=== PATIENT | male | born 1985 | race Caucasian/White ===

== ENCOUNTER → 2022-06-22 | Outpatient (CLI) | payer OTHER, SELFPAY ==
[2022-06-22 12:24] LABS: Absolute Lymphocyte Count 1.74 X10^3/uL (0.83-4.51); Basophil# 0.13 X10^3/uL; Basophil% 2.4 % (0-1); Eosinophil# 0.07 X10^3/uL; Eosinophils% 1.3 % (0-5); Hemoglobin 14.7 g/dL (13.0-16.5); Lymphocyte # 1.74 X10^3/ul (0.83-4.51); Lymphocyte % 31.5 % (19-41); Mean Corp Hgb Conc 34.2 g/dL (32-36); Mean Corpuscular Hgb 33.6 pg (27.0-32.0); Mean Corpuscular Volume 98.4 fL (80-94); Mean Platelet Vol. 9.3 fl (6.2-12.0); Monocyte# 0.57 X10^3/uL; Monocyte% 10.3 % (0-10); NRBC Flagged by Analyzer 0 % (0-5); Neutrophil # 2.99 X10^3/uL (2.7-7.7); Neutrophil % 54.1 % (47-70); Platelet Count 332 K/mm3 (150-450); RBC Distribution Width CV 11.9 % (11.6-14.6); RBC Distribution Width SD 43.7 fl (35.1-43.9); Red Blood Count 4.37 M/mm3 (4.6-6.2); White Blood Count 5.5 K/mm3 (4.4-11.0)
[2022-06-22 13:22] LABS: Creatinine, Urine (random) < 13.00 mg/dL (NO RANGE EST.); Microalbumin,Random Urine 6.3 mg/L (NO RANGE EST.)
[2022-06-22 13:26] LABS: AST(SGOT) 62 U/L (15-37); Alanine Aminotransfer ALT/SGPT 68 U/L (16-61); Albumin, Serum 3.8 g/dL (3.2-5.0); Alkaline Phosphatase 81 U/L (45-117); Anion Gap 9 (5-15); BUN 11 mg/dL (7-18); BUN/Creat Ratio 13.6 RATIO (10-20); Chloride 103 mmol/L (98-107); Cholesterol 268 mg/dL (200); Creatinine, Serum 0.81 mg/dL (0.70-1.30); EST Glomerular Filtration Rate 114 mL/min (>60); Est Glom Filt Rate - Afr Amer 138 mL/min (>60); Globulin 3.8 g/dL (2.2-4.2); Glucose 96 mg/dL (74-106); High Density Lipoprotein 83 mg/dL; Potassium 3.8 mmol/L (3.5-5.1); Protein, Total 7.6 g/dL (6.4-8.2); Sodium Level 141 mmol/L (136-145); Thyroid Stim Hormone (TSH) 0.88 uIU/mL (0.358-3.74); Triglycerides 217 mg/dL; Very Low Density Lipoprotein 43 mg/dL (5-40)
== END | disposition home or self-care (01) ==
PROVIDERS: Visit Provider Nurse Practitioner Family
DX: E10.9 Type 1 diabetes mellitus without complications (principal); F41.9 Anxiety disorder, unspecified
CPT/HCPCS: 36415; 80053; 80061; 82043; 82570; 84443; 85025

== ENCOUNTER → 2022-07-15 | Outpatient (CLI) | payer OTHER, SELFPAY ==
--- NOTE | 2022-07-15 08:57 | US_ITS ---
STUDY: ABDOMINAL ULTRASOUND - RIGHT UPPER QUADRANT REASON FOR VISIT: Male, 36 years old Elevated LFTs TECHNIQUE: Ultrasound evaluation of the right upper quadrant was performed with real-time and static null-scale imaging. TECHNICAL QUALITY: Adequate. COMPARISON: None. FINDINGS: Liver: The liver measures 13.9 cm. There is increased echogenicity consistent with fatty infiltration. The bile ducts are within normal limits. There is hepatic color flow. The direction of portal flow is hepatopetal. There is no demonstrated mass lesion. Gallbladder: Normal distended gallbladder. The gallbladder wall measures 2.2 mm. There is a negative sonographic Gardiner''s sign. There is no pericholecystic fluid. There are no gallstones. Common Bile Duct (C.B.D.): The common bile duct measures 2.7 mm. Pancreas: Normal size of the head, body of the pancreas. The tail portion is obscured due to overlying bowel gas. There is normal echogenicity of the pancreas. There is no demonstrated pancreatic mass or cyst. Right Kidney: Normal size of the right kidney. The right kidney measures 11.6 cm x 5.8 cm x 7 cm. Normal renal cortex. The right cortex measures 1.9 cm. There is no demonstrated renal mass or cyst. There is no right hydronephrosis. US/Liver IMPRESSION: Fatty infiltration of the liver. Electronically Signed: Juma Beatty MD at 11:11 EDT ,
== END | disposition home or self-care (01) ==
PROVIDERS: PCP Nurse Practitioner Family; Referring Provider Nurse Practitioner Family; Visit Provider Nurse Practitioner Family
DX: R79.89 Other specified abnormal findings of blood chemistry (principal)
CPT/HCPCS: 76705

== ENCOUNTER 2022-09-01 12:49 | Outpatient (RCR) | payer OTHER, SELFPAY ==
--- NOTE | 2022-09-01 14:47 | HP.PTEVAL_ITS ---
Patient's Visit Information JOLIE BERNAL is a 37 year old M referred to Physical Therapy by Dr. Carlyn Yoon DC with a diagnosis of LBP. Date of Evaluation: 09/01/22 Physical Therapist: Nabor Kern PT, ATC - Visit Plan Frequency: 2-3x /Week Duration: 4 Weeks Plan: Postural edu, core stab ex's, SKTC/DKTC, bike, and HEP - Subjective Pt reports his LBP has been chronic in nature. 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 Pt notes this may have lead up to his condition. Pt notes he has had xrays which revealed significant disc degeneration throughout the L/S. Pt reports he will get tingling into his L glute region. 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 Pt reports prolonged sitting and standing increase his pain. Pt also notes prolonged ambulation increases his pain. Pt reports his pain is always bad in the morning. Pt notes that he has sleep difficulty at this time secondary to pain. Pt is currently still seeing his chiropractor which consists of some manipulation and stretching with electric stim. 3/10 pain at rest, 8/10 pain at worst - Pain LBP Pain Intensity (Out of 10): 3 Pain Intensity Range: 8 - Objective Neuro: B LE sensation is WNL to light touch. B patellar reflex= 1/3. MMT: B LE's are grossly 5/5 throughout. ROM: Pt is severely limited with L/S extension. All other motions are WNL. Repeated movements: SKTC/DKTC 15 sec x 3 ea decreased pain - Balance/Special Test Scores Oswestry Low Back Score: 15 - Goals Goal 1:: Decrease LBP x 50% to aid with sleep Goal Time Frame: 4-6 Weeks Goal 2:: Increase core stability x 1 grade to aid with increasing tolerance for prolonged ambulation Goal Time Frame: 4-6 Weeks Goal 3:: I with HEP Goal Time Frame: 4-6 Weeks - Rehabilitation Potential Physical Therapy Diagnosis: Pt has LBP, limited L/S ROM, and difficulty with prolonged ambulation secondary to ddd of L/S Rehabilitation Potential: Good - Anticipated Interventions Patient/Client Instruction: Educate patient on: Condition, Plan of Care For the Purpose of:: To improve self management Therapeutic Exercise to Include: Strength training, Endurance training, Body mechanics, Postural training, Passive ROM, Active ROM, Dynamic Lumbar Stabilization For the Purpose of:: To decrease pain, To increase ROM, To improve muscle performance and motor function Cryotherapy (ice pack, ice massage): Yes Thermo therapy (hot pack): Yes For the Purpose of:: To decrease pain Thank you for the opportunity to evaluate your patient. For Medicare and Medicare HMO plans, please review the plan of care and approve it. It will need to be FAXED BACK to us at [phone] for Medicare purposes. For Medicare only, by signing this I certify the plan of care. Please let me know if there are questions or concerns regarding this plan of care. Physician Signature: Date:
--- NOTE | 2022-12-23 17:52 | HP.PT.NRP ---
JOLIE BERNAL was seen in my office for initial evaluation on 09/01/22. The following Plan of Care was established for this patient: Initial Frequency: 2-3x /Week Initial Duration: 4 Weeks Patient/Client Instruction: Educate patient on: Condition, Plan of Care For the Purpose of:: To improve self management Therapeutic Exercise to Include: Strength training, Endurance training, Body mechanics, Postural training, Passive ROM, Active ROM, Dynamic Lumbar Stabilization For the Purpose of:: To decrease pain, To increase ROM, To improve muscle performance and motor function Cryotherapy (ice pack, ice massage): Yes Thermo therapy (hot pack): Yes For the Purpose of:: To decrease pain This patient was last seen in our office . Pertinent comments regarding their Physical therapy will appear below: Pt was evaluated for LBP the date of 09/01/22. Pt has not returned through todays date and is discontinued at this time. At this point I will be discontinuing this patient from physical therapy. I would be happy to see this patient again in the future if found appropriate by the physician. Thank you! Nabor Kern, PT, ATC Balance/Gait/Functional tests - Balance/Special Test Scores Oswestry Low Back Score: 15
== END 2022-09-01 19:00 | disposition home or self-care (01) ==
LOC: PT 12:49
PROVIDERS: PCP Nurse Practitioner Family; Referring Provider Chiropractor; Visit Provider Chiropractor
DX: M51.36 Other intervertebral disc degeneration, lumbar region (principal); M99.03 Segmental and somatic dysfunction of lumbar region; M99.05 Segmental and somatic dysfunction of pelvic region
CPT/HCPCS: 97110; 97161

== ENCOUNTER → 2022-10-25 | Outpatient (CLI) | payer OTHER, SELFPAY ==
--- NOTE | 2022-10-25 13:55 | CT_ITS ---
STUDY: CT CHEST WITHOUT CONTRAST REASON FOR EXAM: Male, 37 years old. Myasthenia gravis; assess for possible thymoma RADIATION DOSAGE (If Supplied By Facility): CTDIvol = ( 12.19 ) mGy, DLP = ( 422.18 ) mGycm TECHNIQUE: Transaxial imaging was performed without the administration of intravenous contrast material. Multiplanar coronal and sagittal images were reformatted. Individualized dose optimization techniques were used for this CT. COMPARISON: No relevant priors. FINDINGS: CHEST The lungs are normal. There is no demonstrated pleural abnormality. Normal heart and pericardium. Normal mediastinum. Normal hilar regions. Normal unenhanced pulmonary arteries. Normal aorta arch and descending thoracic aorta. Normal osseous structures. Diffuse fatty infiltration of the liver. CT/Chest WITH Contrast IMPRESSION: Diffuse fatty infiltration of the liver. The lungs are clear. Electronically Signed: Juma Beatty MD at 14:33 EST ,
[2022-10-25 14:26] LABS: CREATININE FINGERSTICK < 0.9 mg/dL (0.70-1.30); EGFR FINGERSTICK > 60.0000 mL/min (>60)
== END | disposition home or self-care (01) ==
LOC: CT 13:50
PROVIDERS: PCP Nurse Practitioner Family; Referring Provider Psychiatry & Neurology Neurology; Visit Provider Psychiatry & Neurology Neurology
DX: G70.00 Myasthenia gravis without (acute) exacerbation (principal)
CPT/HCPCS: 71260; Q9967

== ENCOUNTER 2022-11-26 18:25 | Inpatient (IN) | payer OTHER, SELFPAY ==
[2022-11-26 18:26] VITALS: BP 142/107; PULSE 146; RESP 18; TEMP 35.8; O2SAT 97; BMI 24.7
--- NOTE | 2022-11-26 18:56 | EKG12_ITS ---
Test Reason : SUBS ABUSE Blood Pressure : / mmHG Vent. Rate : 098 BPM Atrial Rate : 098 BPM P-R Int : 148 ms QRS Dur : 086 ms QT Int : 334 ms P-R-T Axes : 033 054 050 degrees QTc Int : 426 ms Normal sinus rhythm Normal ECG Confirmed by MARISABEL GOODWIN, NARINDER ([id number]), script editor LAURA FARLEY ([id number]) on 11/29/2022 12:32:45 P M Referred By: ALBERTO Confirmed By:RITA PETIT MD
--- NOTE | 2022-11-26 19:00 | EDS_ITS ---
HPI History of Present Illness Chief Complaint: Substance Abuse Narrative Narrative: 37-year-old male presenting for alcohol detox. Patient states has been drinking for a long time. He states he used to use alcohol for stress and is continued. He reports that he drinks about 1/5 a day of whiskey and some other beers maybe 3 or 4. Patient has had episodes of nausea and vomiting over the last few weeks which he and his believe are him withdrawing when he stops drinking. Patie nt did tell his that he was drinking nonalcoholic alcohol but he was sneaking alcohol on the side. He states that he has a family history of addiction. His older sister is also an alcoholic. Patient feels like he is in withdrawal now. He is very shaky. He has never formally detox. No history of withdrawal seizure. He is a type I diabetic but has an insulin pump he is able to keep his blood sugars normal. He has been having nausea and vomiting since last night. That was when he his last drinks from 6 to 10 PM. Has been vomiting a lot today as well. [facility] Medical History Anxiety Hx of diabetes mellitus Hx of essential hypertension Ocular myasthenia gravis Type 1 diabetes mellitus Home Medications cetirizine 10 mg capsule (Zyrtec) 10 mg PO DAILY 06/22/22 [History Last Taken Unknown] sertraline 50 mg tablet (Zoloft) 50 mg PO DAILY #90 tabs 06/22/22 [Rx Last Taken Unknown] lisinopril 20 mg tablet 20 mg PO DAILY #90 tabs 07/14/22 [Rx Last Taken Unknown] Insulin Pump 09/09/22 [History Last Taken Unknown] blood sugar diagnostic (Contour Next Test Strips) #200 ea 09/09/22 [Rx Last Taken Unknown] insulin lispro 100 unit/mL subcutaneous solution (Humalog U-100 Insulin) 100 unit continuous subcutaneous infusion .continuous #90 mL 09/09/22 [Rx Last Taken Unknown] rosuvastatin 5 mg tablet 5 mg PO DAILY #90 tabs 09/09/22 [Rx Last Taken Unknown] prednisone 5 mg tablet See Rx Instructions .Route .COMPLEX #225 tabs 09/30/22 [Rx Last Taken Unknown] blood sugar diagnostic (Accu-Chek Guide test strips) #100 ea 10/28/22 [Rx Last Taken Unknown] lancets (Accu-Chek Fastclix Lancet Drum) #200 ea 10/28/22 [Rx Last Taken Unknown] insulin glargine 100 unit/mL (3 mL) subcutaneous pen (Lantus Solostar U-100 Insulin) 38 unit (0.38 mL) subcut QAM #15 mL 11/25/22 [Rx Last Taken Unknown] Allergy/AdvReac Type Severity Reaction Status Date / Time azathioprine AdvReac Severe Vomiting Verified 11/26/22 18:28 Family History Sister Alcoholism Thyroid disorder Depression Mother Thyroid disorder Bleeding disorder Depression Hypertension High cholesterol Father Hypertension High cholesterol Surgical History No history of previous surgery Social History household members: family housing: house current occupational status: unemployed sexually active: Yes Smoking Status: Never smoker second hand exposure: No alcohol intake: current alcohol intake frequency: a few times a week details: occasionally substance use type: does not use what type of physical activity do you participate in: none dayday/methodist: Mormonism seatbelt use: always do you feel safe at home: Yes ROS ROS ED Review of Systems ROS Unobtainable: Denies due to encephalopathy Constitutional Constitutional ED: Denies chills or fever(s) Eyes Eyes: Denies change in vision or diplopia ENT ENT ED: Denies rhinorrhea or sore throat Cardiovascular Cardiovascular: Denies chest pain or palpitations Respiratory/Chest Respiratory/Chest: Denies cough or dyspnea Gastrointestinal Gastrointestinal: Reports nausea and vomiting Genitourinary Genitourinary ED: Denies dysuria Musculoskeletal Musculoskeletal: Denies arthralgias or back pain Integumentary Denies abscess or Abrasions Neurologic Neurologic: Denies headache(s) or paresthesias Psychiatric Psychiatric: Reports anxiety; Denies depression Endocrine Endocrinology: Denies cold intolerance or heat intolerance EXAM Physical Exam Const Vital Signs: 11/26/22 18:26 Temperature 96.4 F L Temperature Source Temporal Pulse Rate 146 H Respiratory Rate 18 Blood Pressure 142/107 H Blood Pressure Mean 118 Pulse Ox 97 Oxygen Delivery Method Room Air Positive unkempt Constitutional Narrative: Appears shaky General Appearance ED: unkempt; Negative for pallor HEENT Reports moist mucous membranes Eyes PERRL and EOMs intact bilaterally General Eye ED: Negative for pale conjunctiva or scleral icterus Resp normal respiratory effort Cardio regular rhythm Rate: tachycardic GI soft to palpation and non-tender Neuro oriented x3 and CN's II-XII intact bilaterally Sensorium / Orientation: alert Psych mental status grossly normal Appearance: unkempt Skin General Skin Exam: Negative for jaundice or pallor MDM MDM MDM Narrative Medical decision making narrative: Patient presenting with nausea/vomiting. He significantly tachycardic and has a history of type with diabetes. Patient does feel like he is withdrawing from alcohol. Last drink last evening. Differential diagnosis includes but not limited to EtOH withdrawal, EtOH intoxication, DKA, dehydration, electrolyte abnormalities. IV line was established. Patient was given 2 L of normal saline. He was also given 2 mg of Ativan. I will obtain an EKG 146 to make sure this is a normal rhythm. CBC to assess white blood cell count, hemoglobin, differential. BMP to assess renal function electrolytes, glucose and anion gap. CMP to assess liver function. Lipase will also be assessed. EKG showed a normal sinus rhythm with a ventricular rate of 98 bpm without sign of ischemic change or dysrhythmia on my interpretation. CBC shows no leukocytosis. Hemoglobin hematocrit are stable. Platelets are normal. BMP shows normal renal function and electrolytes are fairly normal with exception of potassium 3.3. Glucose 239 without anion gap. Patient's liver function testing shows a total bilirubin of 4.8, direct bilirubin 3.41, AST 497, ALT 264, alkaline phosphatase 585. EtOH is negative. PT/INR normal. Patient feeling better with IV Ativan and Zofran. After the hospitalist evaluated him he felt he was a little tremulous. Requested 100 mg of IV phenobarbital. This was provided. Patient will be placed on MedSurg. Impression: 1. EtOH withdrawal 2. Transaminitis 3. Hyperglycemia 4. Nausea/vomiting Lab Data Labs: Laboratory Results - last 24 hr 11/26/22 11/26/22 11/26/22 19:09 19:09 19:09 WBC 8.2 RBC 4.17 L Hgb 14.0 Hct 40.0 MCV 95.9 H MCH 33.6 H MCHC 35.0 RDW Std Deviation 52.5 H RDW Coeff of Keli 15.0 H Plt Count 191 MPV 10.9 Immature Gran % (Auto) 0.600 Neut % (Auto) 79.3 H Lymph % (Auto) 8.7 L [place] % (Auto) 7.9 Eos % (Auto) 2.8 Baso % (Auto) 0.7 Absolute Neuts (auto) 6.5 Absolute Lymphs (auto) 0.71 L Nucleated RBC % 0 PT INR Sodium 135 L Potassium 3.3 L Chloride 98 Carbon Dioxide 25.0 Anion Gap 12 BUN 14 Creatinine 1.13 Estim Creat Clear Calc 98.24 Est GFR (MDRD) Af Amer 94 Est GFR (MDRD) Non-Af 78 BUN/Creatinine Ratio 12.4 Glucose 239 H Calcium 8.7 Total Bilirubin 4.80 H Direct Bilirubin 3.41 H AST 497 H ALT 264 H Alkaline Phosphatase 585 H Total Protein 5.9 L Albumin 2.6 L Globulin 3.3 Lipase 56 L Ur Drug Screen Comment Ethyl Alcohol < 3.0 11/26/22 11/26/22 19:09 19:25 WBC RBC Hgb Hct MCV MCH MCHC RDW Std Deviation RDW Coeff of Keli Plt Count MPV Immature Gran % (Auto) Neut % (Auto) Lymph % (Auto) [place] % (Auto) Eos % (Auto) Baso % (Auto) Absolute Neuts (auto) Absolute Lymphs (auto) Nucleated RBC % PT 11.8 INR 0.9 Sodium Potassium Chloride Carbon Dioxide Anion Gap BUN Creatinine Estim Creat Clear Calc Est GFR (MDRD) Af Amer Est GFR (MDRD) Non-Af BUN/Creatinine Ratio Glucose Calcium Total Bilirubin Direct Bilirubin AST ALT Alkaline Phosphatase Total Protein Albumin Globulin Lipase Ur Drug Screen Comment Ethyl Alcohol Discharge Plan Triage Chief Complaint: Substance Abuse ED Provider: Robert Cardenas Dx/Rx/DC Orders Primary Care Provider: Jaren Wood NP
[2022-11-26] MEDS: Ondansetron 4 MG/2 ML Vial IV (19:17)
[2022-11-26] MEDS: LORazepam 2 MG/ML Syringe IV (19:18)
[2022-11-26] MEDS: 0.9% Normal Saline 1,000 ML 999 ML IV ×2 (19:21→20:22)
[2022-11-26 19:24] LABS: Alcohol, Blood (Medical)-Serum < 3.0 mg/dL
[2022-11-26 19:29] LABS: AST(SGOT) 497 U/L (15-37); Alanine Aminotransfer ALT/SGPT 264 U/L (16-61); Albumin, Serum 2.6 g/dL (3.2-5.0); Alkaline Phosphatase 585 U/L (45-117); Anion Gap 12 (5-15); BUN 14 mg/dL (7-18); BUN/Creat Ratio 12.4 RATIO (10-20); Bilirubin, Direct 3.41 mg/dL (0.00-0.30); Calcium,Total 8.7 mg/dL (8.5-10.1); Chloride 98 mmol/L (98-107); Creatinine, Serum 1.13 mg/dL (0.70-1.30); EST Glomerular Filtration Rate 78 mL/min (>60); Est Glom Filt Rate - Afr Amer 94 mL/min (>60); Estimated Creatinine Clearance 98.24 ml/min; Globulin 3.3 g/dL (2.2-4.2); Glucose 239 mg/dL (74-106); Lipase 56 U/L (73-393); Potassium 3.3 mmol/L (3.5-5.1); Protein, Total 5.9 g/dL (6.4-8.2); Sodium Level 135 mmol/L (136-145)
[2022-11-26 19:30] LABS: Absolute Lymphocyte Count 0.71 X10^3/uL (0.83-4.51); Absolute Neutrophil Count 6.5 X10^3/uL (2.0-7.7); Basophil# 0.06 X10^3/uL; Basophil% 0.7 % (0-1); Eosinophil# 0.23 X10^3/uL; Eosinophils% 2.8 % (0-5); Lymphocyte # 0.71 X10^3/ul (0.83-4.51); Lymphocyte % 8.7 % (19-41); Mean Corpuscular Hgb 33.6 pg (27.0-32.0); Mean Corpuscular Volume 95.9 fL (80-94); Mean Platelet Vol. 10.9 fl (6.2-12.0); Monocyte# 0.65 X10^3/uL; Monocyte% 7.9 % (0-10); NRBC Flagged by Analyzer 0 % (0-5); Neutrophil # 6.49 X10^3/uL (2.7-7.7); Neutrophil % 79.3 % (47-70); Platelet Count 191 K/mm3 (150-450); RBC Distribution Width SD 52.5 fl (35.1-43.9); Red Blood Count 4.17 M/mm3 (4.6-6.2); White Blood Count 8.2 K/mm3 (4.4-11.0)
--- NOTE | 2022-11-26 19:55 | HP.PCM.HOS_ITS ---
HPI - General General Date of Admission: 11/26/22 Date of Service: 11/26/22 Chief Complaint: Alcohol withdrawal HPI Narrative JOLIE BERNAL, is a 37 M with a significant history of fatty liver; hypertension; anxiety disorder; who presents to emergency department with alcohol withdrawal and help with alcohol detoxification. Patient has been drinking since age 15 years. In the past 7 years his drinking habit has worsened and even in the past months his drinking habit has worsened even more. He drinks a fifth of hard liquor and 4 bottles of beer each day. Last time he drank was a day before presentation. In the morning of the day of presentation he felt withdrawal symptoms of nausea, vomiting, tremulousness, and feeling warm. REPLACED BY [facility] Medical History (Updated 11/26/22 @ 20:48 by Joy Martinez) Anxiety Fatty liver Hx of diabetes mellitus Hx of essential hypertension Ocular myasthenia gravis Type 1 diabetes mellitus Home Medications cetirizine 10 mg capsule (Zyrtec) 10 mg PO DAILY PRN allergies 06/22/22 [History Last Taken 11/25/22] Insulin Pump 09/09/22 [History Last Taken Unknown] blood sugar diagnostic (Contour Next Test Strips) #200 ea 09/09/22 [Rx Last Taken Unknown] blood sugar diagnostic (Accu-Chek Guide test strips) #100 ea 10/28/22 [Rx Last Taken Unknown] lancets (Accu-Chek Fastclix Lancet Drum) #200 ea 10/28/22 [Rx Last Taken Unknown] insulin glargine 100 unit/mL (3 mL) subcutaneous pen (Lantus Solostar U-100 Insulin) 38 unit subcut QAM Check with primary doctor 11/26/22 [History Last Taken Unknown] insulin lispro 100 unit/mL subcutaneous solution (Humalog U-100 Insulin) 100 unit continuous subcutaneous infusion .continuous Check with primary doctor 11/26/22 [History Last Taken 11/26/22] lisinopril 20 mg tablet 10 mg PO DAILY Check with primary doctor 11/26/22 [History Last Taken 11/25/22] magnesium 200 mg tablet 400 mg PO DAILY Check with primary doctor 11/26/22 [History Last Taken 11/25/22] prednisone 5 mg tablet 10 mg PO DAILY Check with primary doctor 11/26/22 [History Last Taken 11/25/22] Allergy/AdvReac Type Severity Reaction Status Date / Time azathioprine AdvReac Severe Vomiting Verified 11/26/22 18:28 Family History Sister Alcoholism Thyroid disorder Depression Mother Thyroid disorder Bleeding disorder Depression Hypertension High cholesterol Father Hypertension High cholesterol Surgical History No history of previous surgery Social History household members: family housing: house current occupational status: unemployed sexually active: Yes Smoking Status: Never smoker second hand exposure: No alcohol intake: current alcohol intake frequency: a few times a week details: occasionally substance use type: does not use what type of physical activity do you participate in: none dayday/rastafari: Orthodox seatbelt use: always do you feel safe at home: Yes ROS ROS Narrative Pertinent positives and pertinent negatives as noted in HPI. All other systems were reviewed and are negative Vital Signs Vital Signs Vital Signs: 11/26/22 18:26 Temperature 96.4 F L Temperature Source Temporal Pulse Rate 146 H Respiratory Rate 18 Blood Pressure 142/107 H Blood Pressure Mean 118 Pulse Ox 97 Oxygen Delivery Method Room Air Weight Weight: 82.554 kg Body Mass Index (BMI) 24.7 Physical Exam Narrative Physical exam: General: Well-nourished, well-developed. Head: Normocephalic, atraumatic, no tenderness Eyes: Vision is grossly intact. EOMI ENT, no trauma, moist mucous membranes, no rhinorrhea Neck: Nontender, No thyromegaly. CVS: Regular rate and rhythm. S1-S2 present. No murmur, gallop or rub. Respiratory : clear to auscultation bilaterally, chest wall nontender, no wheezing Abdomen: Soft, nontender, nondistended, normal bowel sounds, no masses : Deferred Back: Nontender, no CVA tenderness, no midline spinal tenderness, deformities, step-offs Extremities: Nontender full range of motion, no trauma Skin: Normal color, no trauma, abrasions Neuro: Alert, oriented, cranial nerves II through XII grossly intact. Tremulous. Psychiatry: Normal mood. Normal affect. Not depressed. Not anxious. Results Lab / Micro Data Result Diagrams: 11/26/22 19:09 11/26/22 19:09 Labs: Laboratory Results - last 24 hr 11/26/22 19:09: WBC 8.2, RBC 4.17 L, Hgb 14.0, Hct 40.0, MCV 95.9 H, MCH 33.6 H, MCHC 35.0, RDW Std Deviation 52.5 H, RDW Coeff of Keli 15.0 H, Plt Count 191, MPV 10.9, Immature Gran % (Auto) 0.600, Neut % (Auto) 79.3 H, Lymph % (Auto) 8.7 L, [place] % (Auto) 7.9, Eos % (Auto) 2.8, Baso % (Auto) 0.7, Absolute Neuts (auto) 6.5, Absolute Lymphs (auto) 0.71 L, Nucleated RBC % 0 11/26/22 19:09: Sodium 135 L, Potassium 3.3 L, Chloride 98, Carbon Dioxide 25.0, Anion Gap 12, BUN 14, Creatinine 1.13, Estim Creat Clear Calc 98.24, Est GFR (MDRD) Af Amer 94, Est GFR (MDRD) Non-Af 78, BUN/Creatinine Ratio 12.4, Glucose 239 H, Calcium 8.7, Total Bilirubin 4.80 H, Direct Bilirubin 3.41 H, AST 497 H, ALT 264 H, Alkaline Phosphatase 585 H, Total Protein 5.9 L, Albumin 2.6 L, Globulin 3.3, Lipase 56 L 11/26/22 19:09: Ethyl Alcohol < 3.0 11/26/22 19:25: Ur Drug Screen Comment Assessment & Plan Assessment/Plan (1) Alcohol withdrawal: (2) Type 1 diabetes mellitus: (3) Elevated bilirubin: PLAN: Plan Alcohol dependence and desire for detoxification Patient be started on phenobarbital and other adjunctive medications: Gabapentin as needed; dicyclomine as needed; Vistaril as needed; Imodium as needed; trazodone as needed; Zofran as needed; scheduled thiamine; and schedule folic acid. Monitor CIWA score Of note patient received one-time dose of Ativan in the emergency department. Because of excessive tremulousness also phenobarbital 100 mg IV was given at the ED. Ocular myasthenia gravis Stable Continue home prednisone. Anxiety disorder Continue home meds and anxiety medications Hypertension Blood pressure is not within goal Lisinopril continued. Trend blood pressure and adjust blood pressure medications. Diabetes mellitus Blood glucose not within goal. Continue home insulin pump. Elevated bilirubin/elevated liver biochemistry AST and ALT in the ratio of 1.88. Alkaline phosphatase of 585 on presentation. His alkaline phosphatase on 06/22/2020 was 81. Discussed with GI. GI consult. Per GI recommendation MRCP ordered. [place] discriminant function with good prognosis. Trend CMP Hypokalemia Potassium 3.3 on presentation. Replace. Trend CMP. Check magnesium. DVT prophylaxis Low risk Encourage to ambulate Charges/Coding Visit Charges Inpatient E&M: 58225 Init Hosp L3
[2022-11-26 20:15] LABS: International Normalized Ratio 0.9; Prothrombin Time (Protime)PT. 11.8 SECONDS (11.7-14.9)
[2022-11-26] MEDS: Phenobarbital Sodium 130 MG/ML Vial 100 MG IV (20:23)
[2022-11-26 20:40] VITALS: BP 142/107; PULSE 146; RESP 18; TEMP 36.6; O2SAT 97
[2022-11-26 20:41] LABS: Amphetamine Urine VISTA NEGATIVE (<1000 ng/mL); Barbiturate Urine VISTA NEGATIVE (< 200 ng/mL); Benzodiazepine Urine VISTA NEGATIVE (< 200 ng/mL); Cocaine Urine VISTA NEGATIVE (< 300 ng/mL); Ecstacy Urine VISTA NEGATIVE (< 500 ng/mL); Methadone Urine VISTA NEGATIVE (< 300 ng/mL); PCP Urine VISTA NEGATIVE (< 25 ng/mL); THC Urine VISTA NEGATIVE (< 50 ng/mL); Vista UDS pH Range 5
[2022-11-26 20:49] VITALS: BMI 25.5
[2022-11-26 20:57] VITALS: BP 155/102; PULSE 104; RESP 17; TEMP 37.3; O2SAT 99
[2022-11-26 22:07] VITALS: BP 146/96; PULSE 102; RESP 18; TEMP 37.4; O2SAT 95
[2022-11-26] MEDS: hydrOXYzine PAM 25 MG Capsule 50 MG PO (22:25)
[2022-11-26] MEDS: traZODone 100 MG Tablet PO (22:26)
[2022-11-26] MEDS: 0.9% Saline Lock 10 ML Syringe IV (22:26)
[2022-11-27] VITALS (7 sets, daily range): BP systolic 135–155; BP diastolic 88–99; PULSE 65–110; RESP 16–18; TEMP 36.4–36.9; O2SAT 94–99
[2022-11-27] MEDS: Phenobarbital 32.4 MG Tablet 64.8 MG PO ×6 (00:23→20:04)
[2022-11-27] MEDS: Potassium Chloride Oral Tablet 20 MEQ 40 MEQ PO (01:01)
[2022-11-27 01:44] LABS: Magnesium 1.8 mg/dL (1.6-2.6)
--- NOTE | 2022-11-27 05:55 | MRI_ITS ---
STUDY: MR CHOLANGIOPANCREATOGRAPHY (MRCP) REASON FOR EXAM: Male, 37 years old. alcohol abuse CBD STONES PANCREATITIS Elevated bilirubin TECHNIQUE: Standard MRCP technique was utilized. 3-D postprocessing images were obtained. COMPARISON: None. FINDINGS: Gall Bladder: Normal gallbladder and extrahepatic biliary system. Cystic duct: Normal with no demonstrated fixed filling defect. Intrahepatic ducts: Normal visualized intrahepatic ducts with no demonstrated fixed filling defect, dilation or stricture. Common hepatic duct: Normal with no demonstrated fixed filling defect, dilation or stricture. Common bile duct: Normal with no demonstrated fixed filling defect, dilation or stricture. Pancreatic duct: Normal with no demonstrated fixed filling defect, dilation or stricture.. There is diffuse enlargement of the pancreas with aida-pancreatic edema suggesting acute pancreatitis. MRI/MRCP Abdomen without Contrast IMPRESSION: There is diffuse enlargement of the pancreas with aida-pancreatic edema suggesting acute pancreatitis. Electronically Signed: Nabor Rios MD at 15:12 EDT ,
[2022-11-27 06:55] LABS: Absolute Lymphocyte Count 1.55 X10^3/uL (0.83-4.51); Absolute Neutrophil Count 4.2 X10^3/uL (2.0-7.7); Basophil# 0.05 X10^3/uL; Basophil% 0.8 % (0-1); Eosinophil# 0.04 X10^3/uL; Eosinophils% 0.6 % (0-5); Hematocrit 34.6 % (40-54); Hemoglobin 11.9 g/dL (13.0-16.5); Lymphocyte # 1.55 X10^3/ul (0.83-4.51); Lymphocyte % 24.5 % (19-41); Mean Corp Hgb Conc 34.4 g/dL (32-36); Mean Corpuscular Hgb 33.7 pg (27.0-32.0); Mean Platelet Vol. 10.9 fl (6.2-12.0); Monocyte# 0.47 X10^3/uL; Monocyte% 7.4 % (0-10); NRBC Flagged by Analyzer 0 % (0-5); Neutrophil # 4.18 X10^3/uL (2.7-7.7); Neutrophil % 66.2 % (47-70); Platelet Count 135 K/mm3 (150-450); RBC Distribution Width CV 15.3 % (11.6-14.6); RBC Distribution Width SD 54.8 fl (35.1-43.9); Red Blood Count 3.53 M/mm3 (4.6-6.2); White Blood Count 6.3 K/mm3 (4.4-11.0)
[2022-11-27 07:38] LABS: ALB/GLOB Ratio 0.7 RATIO (0.9-2.4); AST(SGOT) 380 U/L (15-37); Alanine Aminotransfer ALT/SGPT 192 U/L (16-61); Alkaline Phosphatase 467 U/L (45-117); Anion Gap 8 (5-15); BUN 11 mg/dL (7-18); BUN/Creat Ratio 9.9 RATIO (10-20); Calcium,Total 8.1 mg/dL (8.5-10.1); Chloride 101 mmol/L (98-107); Creatinine, Serum 1.11 mg/dL (0.70-1.30); EST Glomerular Filtration Rate 79 mL/min (>60); Est Glom Filt Rate - Afr Amer 96 mL/min (>60); Estimated Creatinine Clearance 100.01 ml/min; Globulin 2.7 g/dL (2.2-4.2); Glucose 89 mg/dL (74-106); Potassium 3.8 mmol/L (3.5-5.1); Protein, Total 4.7 g/dL (6.4-8.2); Sodium Level 137 mmol/L (136-145)
[2022-11-27] MEDS: Magnesium Chloride 64 MG Delay Rel.Tablet 128 MG PO (08:23)
[2022-11-27] MEDS: Lisinopril 10 MG Tablet PO (08:24)
[2022-11-27] MEDS: Folic Acid 1 MG Tablet PO (08:24)
[2022-11-27] MEDS: predniSONE 10 MG Tablet PO (08:24)
[2022-11-27] MEDS: Thiamine Hydrochloride 100 MG Tablet PO (08:25)
--- NOTE | 2022-11-27 08:29 | NURSING ---
Patient states his blood sugar is 87 at this time per his personal glucose monitoring system.
--- NOTE | 2022-11-27 09:06 | CASEMGMT ---
Social Work SW notified Pt navigator Constanza benz/Myles Phipps that pt is here for detox. She will be in later this morning to see patients. ROSA Gilliam
--- NOTE | 2022-11-27 14:48 | PN_ITS ---
Subjective Subjective Patient seen and examined. He had no complaints. He is being managed for acute alcohol withdrawal. He denies any symptoms of withdrawal. REview of systems is otherwise negative. Objective Data Objective Data Vital Signs: Vital Signs Temp Pulse Resp BP Pulse Ox O2 Del Method 97.8 F 105 H 18 137/99 H 99 Room Air 11/27/22 13:00 11/27/22 13:00 11/27/22 13:00 11/27/22 13:00 11/27/22 14:13 11/27/22 14:13 Oxygen Delivery Method Room Air Weight: 188 lb 4.396 oz Body Mass Index (BMI) 25.5 Intake & Output: Intake and Output for Last 24 Hours 11/25/22 11/26/22 11/27/22 23:59 23:59 23:59 Intake Total 2000 / 2800 1200 / 1200 Balance 2000 / 2800 1200 / 1200 Lab / Micro Data Result Diagrams: 11/27/22 05:59 11/27/22 05:59 Labs: Laboratory Results - last 24 hr 11/26/22 19:09: WBC 8.2, RBC 4.17 L, Hgb 14.0, Hct 40.0, MCV 95.9 H, MCH 33.6 H, MCHC 35.0, RDW Std Deviation 52.5 H, RDW Coeff of Keli 15.0 H, Plt Count 191, MPV 10.9, Immature Gran % (Auto) 0.600, Neut % (Auto) 79.3 H, Lymph % (Auto) 8.7 L, [place] % (Auto) 7.9, Eos % (Auto) 2.8, Baso % (Auto) 0.7, Absolute Neuts (auto) 6.5, Absolute Lymphs (auto) 0.71 L, Nucleated RBC % 0 11/26/22 19:09: Sodium 135 L, Potassium 3.3 L, Chloride 98, Carbon Dioxide 25.0, Anion Gap 12, BUN 14, Creatinine 1.13, Estim Creat Clear Calc 98.24, Est GFR (MDRD) Af Amer 94, Est GFR (MDRD) Non-Af 78, BUN/Creatinine Ratio 12.4, Glucose 239 H, Calcium 8.7, Total Bilirubin 4.80 H, Direct Bilirubin 3.41 H, AST 497 H, ALT 264 H, Alkaline Phosphatase 585 H, Total Protein 5.9 L, Albumin 2.6 L, Globulin 3.3, Lipase 56 L 11/26/22 19:09: Ethyl Alcohol < 3.0 11/26/22 19:09: PT 11.8, INR 0.9 11/26/22 19:09: Magnesium 1.8 11/26/22 19:25: Urine Opiates Screen NEGATIVE, Urine Methadone Screen NEGATIVE, Ur Barbiturates Screen NEGATIVE, Ur Phencyclidine Scrn NEGATIVE, Ur Amphetamines Screen NEGATIVE, MDMA (Ecstasy) Screen NEGATIVE, U Benzodiazepines Scrn NEGATIVE, Urine Cocaine Screen NEGATIVE, U Cannabinoids Screen NEGATIVE, Ur Drug Screen Comment 11/27/22 05:59: WBC 6.3, RBC 3.53 L, Hgb 11.9 L, Hct 34.6 L, MCV 98.0 H, MCH 33.7 H, MCHC 34.4, RDW Std Deviation 54.8 H, RDW Coeff of Keli 15.3 H, Plt Count 135 L, MPV 10.9, Immature Gran % (Auto) 0.500, Neut % (Auto) 66.2, Lymph % (Auto) 24.5, [place] % (Auto) 7.4, Eos % (Auto) 0.6, Baso % (Auto) 0.8, Absolute Neuts (auto) 4.2, Absolute Lymphs (auto) 1.55, Nucleated RBC % 0 11/27/22 05:59: Sodium 137, Potassium 3.8, Chloride 101, Carbon Dioxide 28.0, Anion Gap 8, BUN 11, Creatinine 1.11, Estim Creat Clear Calc 100.01, Est GFR (MDRD) Af Amer 96, Est GFR (MDRD) Non-Af 79, BUN/Creatinine Ratio 9.9 L, Glucose 89, Calcium 8.1 L, Total Bilirubin 3.90 H, AST 380 H, ALT 192 H, Alkaline Phosphatase 467 H, Total Protein 4.7 L, Albumin 2.0 L, Globulin 2.7, Albumin/G lobulin Ratio 0.7 L Physical Exam Const alert, oriented x3 and no apparent distress HEENT normocephalic, head/scalp atraumatic and moist oral mucous membranes Neck supple and no JVD Lymph Lymphatic: no lymphadenopathy noted and no lymphedema noted Resp normal respiratory effort, normal air movement and clear to auscultation bilaterally Cardio regular rate, regular rhythm, S1 normal heart sound, S2 normal heart sound and no murmurs GI normal to inspection, nondistended, normoactive bowel sounds, soft to palpation, non-tender and non-distended Extremity normal capillary refill, no clubbing, cyanosis or edema and no calf tenderness Skin General Skin Exam: no breakdown Neuro CN's II-XII intact bilaterally, no focal motor deficits, no sensory deficits noted and deep tendon reflexes 2+ bilaterally Psych thought process normal, cooperative and affect normal Assessment & Plan Assessment/Plan (1) Alcohol withdrawal: PLAN: Plan #Acute alcohol withdrawal * On alcohol withdrawal protocol with phenobarbital. On gabapentin. Another a djunctive meds for symptomatic relief * On thiamine, multivitamin folic acid. * Monitor CIWA score. #Anxiety disorder: On home meds. #Hypertension: On lisinopril #Elevated liver enzymes: * Trending downwards. MRCP ordered. GI consulted. Likely due to chronic alcohol abuse. 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 Insulin sliding scale. Accu-Cheks ACHS. DVT prophylaxis: low risk, encourage to ambulate Charges/Coding Visit Charges Inpatient E&M: 52739 Subs Hosp L2
--- NOTE | 2022-11-27 15:38 | ADDICTION ---
This teletypewriter installer met with PT to conduct ASAM, MSE, AUDIT assessments and to plan for d/c. PT A+Ox4 and participated actively. All assessments completed, faxed to [facility] and placed in PT's chart. PT plans to f/u with individual counselor at [facility] for outpatient treatment services. PT did not indicate a need for transportation post d/c from [facility].
--- NOTE | 2022-11-27 15:39 | CON.PCM.GI_ITS ---
HPI Consult Data Date of Consult: 11/27/22 HPI Narrative Reason for Consultation: Increased LFTs HPI Narrative: JOLIE BERNAL, is a 37-year-old male presented to the emergency department for alcohol detox. He was?diagnosed with type 1 diabetes at age of 12, no family history, denies any known complications of diabetes. Of note- he has a history of ocular myasthenia gravis and takes 7.5-20 mg of prednisone daily. Patient states has been drinking for a long time. He has no history of cirrhosis. He does have a past medical history of anxiety chronic back pain, alcohol abuse, alcohol induced pancreatitis and alcohol induced hepatitis. He states he used to use alcohol for stress and is continued.? He reports that he drinks about 1/5 a day of whiskey and some other beers maybe 3 or 4.? Patient has had episodes of nausea and vomiting over the last few weeks which he and his believe are him withdrawing when he stops drinking.? Patient did tell his that he was drinking nonalcoholic alcohol but he was sneaking alcohol on the side.? He states that he has a family history of addiction.? His older sister is also an alcoholic.? Patient feels like he is in withdrawal now.?He has never formally detox.? No history of withdrawal seizure.? His blood work in the ED displayed a sodium 135 L, Potassium 3.3 L, Chloride 98, Carbon Dioxide 25.0, Anion Gap 12, BUN 14, Creatinine 1.13, Estim Creat Clear Calc 98.24, Est GFR (MDRD) Af Amer 94, Est GFR (MDRD) Non-Af 78, BUN/Creatinine Ratio 12.4, Glucose 239 H, Calcium 8.7, Total Bilirubin 4.80 H, Direct Bilirubin 3.41 H, AST 497 H, ALT 264 H, Alkaline Phosphatase 585 H, Total Protein 5.9 L, Albumin 2.6 L, Globulin 3.3, Lipase 56 I was asked to see him due to increased LFTs. The working diagnosis after talk with the hospitalist over the phone was alcoholic hepatitis versus biliary obstruction. An MRCP was ordered. Did not show any signs of obstructive physiology involving the hepatobiliary system but it did show acute pancreatitis involving the pancreatic head. [facility] Medical History (Updated 11/27/22 @ 15:[address] Larsen Friend, DO) Anxiety Fatty liver Hx of diabetes mellitus Hx of essential hypertension Ocular myasthenia gravis Type 1 diabetes mellitus Home Medications cetirizine 10 mg capsule (Zyrtec) 10 mg PO DAILY PRN allergies 06/22/22 [History Last Taken 11/25/22] Insulin Pump 09/09/22 [History Last Taken Unknown] blood sugar diagnostic (Contour Next Test Strips) #200 ea 09/09/22 [Rx Last Taken Unknown] blood sugar diagnostic (Accu-Chek Guide test strips) #100 ea 10/28/22 [Rx Last Taken Unknown] lancets (Accu-Chek Fastclix Lancet Drum) #200 ea 10/28/22 [Rx Last Taken Unknown] insulin glargine 100 unit/mL (3 mL) subcutaneous pen (Lantus Solostar U-100 Insulin) 38 unit subcut QAM Check with primary doctor 11/26/22 [History Last Taken Unknown] insulin lispro 100 unit/mL subcutaneous solution (Humalog U-100 Insulin) 100 unit continuous subcutaneous infusion .continuous Check with primary doctor 11/26/22 [History Last Taken 11/26/22] lisinopril 20 mg tablet 10 mg PO DAILY Check with primary doctor 11/26/22 [History Last Taken 11/25/22] magnesium 200 mg tablet 400 mg PO DAILY Check with primary doctor 11/26/22 [History Last Taken 11/25/22] prednisone 5 mg tablet 10 mg PO DAILY Check with primary doctor 11/26/22 [History Last Taken 11/25/22] Allergy/AdvReac Type Severity Reaction Status Date / Time azathioprine AdvReac Severe Vomiting Verified 11/26/22 18:28 Family History Sister Alcoholism Thyroid disorder Depression Mother Thyroid disorder Bleeding disorder Depression Hypertension High cholesterol Father Hypertension High cholesterol Surgical History No history of previous surgery Social History household members: family housing: house current occupational status: unemployed sexually active: Yes Smoking Status: Never smoker second hand exposure: No alcohol intake: current alcohol intake frequency: a few times a week details: occasionally substance use type: does not use what type of physical activity do you participate in: none dayday/latter day: Zoroastrianism seatbelt use: always do you feel safe at home: Yes ROS ROS Narrative Pertinent positives and pertinent negatives as noted in HPI. All other systems were reviewed and are negative Physical Exam Const alert, oriented x3 and no apparent distress HEENT normocephalic, head/scalp atraumatic and moist oral mucous membranes Neck supple and no JVD Lymph Lymphatic: no lymphadenopathy noted and no lymphedema noted Resp normal respiratory effort, normal air movement and clear to auscultation bilaterally Cardio regular rate, regular rhythm, S1 normal heart sound, S2 normal heart sound and no murmurs GI normal to inspection, nondistended, normoactive bowel sounds, soft to palpation, non-tender and non-distended Extremity normal capillary refill, no clubbing, cyanosis or edema and no calf tenderness Skin General Skin Exam: no breakdown Neuro CN's II-XII intact bilaterally, no focal motor deficits, no sensory deficits noted and deep tendon reflexes 2+ bilaterally Psych thought process normal, cooperative and affect normal Lab / Micro Data Result Diagrams: 11/27/22 05:59 11/27/22 05:59 Labs: Laboratory Results - last 24 hr 11/26/22 19:09: WBC 8.2, RBC 4.17 L, Hgb 14.0, Hct 40.0, MCV 95.9 H, MCH 33.6 H, MCHC 35.0, RDW Std Deviation 52.5 H, RDW Coeff of Keli 15.0 H, Plt Count 191, MPV 10.9, Immature Gran % (Auto) 0.600, Neut % (Auto) 79.3 H, Lymph % (Auto) 8.7 L, [place] % (Auto) 7.9, Eos % (Auto) 2.8, Baso % (Auto) 0.7, Absolute Neuts (auto) 6.5, Absolute Lymphs (auto) 0.71 L, Nucleated RBC % 0 11/26/22 19:09: Sodium 135 L, Potassium 3.3 L, Chloride 98, Carbon Dioxide 25.0, Anion Gap 12, BUN 14, Creatinine 1.13, Estim Creat Clear Calc 98.24, Est GFR (MDRD) Af Amer 94, Est GFR (MDRD) Non-Af 78, BUN/Creatinine Ratio 12.4, Glucose 239 H, Calcium 8.7, Total Bilirubin 4.80 H, Direct Bilirubin 3.41 H, AST 497 H, ALT 264 H, Alkaline Phosphatase 585 H, Total Protein 5.9 L, Albumin 2.6 L, Globulin 3.3, Lipase 56 L 11/26/22 19:09: Ethyl Alcohol < 3.0 11/26/22 19:09: PT 11.8, INR 0.9 11/26/22 19:09: Magnesium 1.8 11/26/22 19:25: Urine Opiates Screen NEGATIVE, Urine Methadone Screen NEGATIVE, Ur Barbiturates Screen NEGATIVE, Ur Phencyclidine Scrn NEGATIVE, Ur Amphetamines Screen NEGATIVE, MDMA (Ecstasy) Screen NEGATIVE, U Benzodiazepines Scrn NEGATIVE, Urine Cocaine Screen NEGATIVE, U Cannabinoids Screen NEGATIVE, Ur Drug Screen Comment 11/27/22 05:59: WBC 6.3, RBC 3.53 L, Hgb 11.9 L, Hct 34.6 L, MCV 98.0 H, MCH 33.7 H, MCHC 34.4, RDW Std Deviation 54.8 H, RDW Coeff of Keli 15.3 H, Plt Count 135 L, MPV 10.9, Immature Gran % (Auto) 0.500, Neut % (Auto) 66.2, Lymph % (Auto) 24.5, [place] % (Auto) 7.4, Eos % (Auto) 0.6, Baso % (Auto) 0.8, Absolute Neuts (auto) 4.2, Absolute Lymphs (auto) 1.55, Nucleated RBC % 0 11/27/22 05:59: Sodium 137, Potassium 3.8, Chloride 101, Carbon Dioxide 28.0, Anion Gap 8, BUN 11, Creatinine 1.11, Estim Creat Clear Calc 100.01, Est GFR (MDRD) Af Amer 96, Est GFR (MDRD) Non-Af 79, BUN/Creatinine Ratio 9.9 L, Glucose 89, Calcium 8.1 L, Total Bilirubin 3.90 H, AST 380 H, ALT 192 H, Alkaline Phosphatase 467 H, Total Protein 4.7 L, Albumin 2.0 L, Globulin 2.7, Albumin/Globulin Ratio 0.7 L Radiology Impression MRCP 11/27/22 05:55 IMPRESSION: There is diffuse enlargement of the pancreas with aida-pancreatic edema suggesting acute pancreatitis. Electronically Signed: Nabor Rios MD at 15:12 EDT , Assessment & Plan Assessment/Plan (1) Alcohol withdrawal: (2) Type 1 diabetes mellitus: (3) Elevated bilirubin: (4) Alcoholic pancreatitis: (5) Alcoholic hepatitis: PLAN: Plan Patient's LFTs are consistent with acute liver injury secondary to alcohol. He does have fatty liver disease on his imaging secondary to alcohol. His LFTs are improving along with his liver enzymes. His initial Madrey score with a sodium was 26. Therefore we recommended no increase steroids and he is on steroid for his myasthenia gravis. His lipase is normal therefore he must have developed pa ncreatitis several days ago. Would recommend normal saline at 150 to 200 cc an hour. Continue to monitor LFTs along with checking ESR, CRP, LDH and lactate. He does have some thrombocytopenia but I think that is mostly dilutional and an acute phase reactant and not secondary to underlying fibrosis or cirrhosis of the liver. Would recommend Xifaxan 550 mg twice a day. He does not need lactulose at this time although I will check an ammonia level and if it is more than 3 times upper limit of normal would recommend at least lactulose 20 cc p.o. twice daily. As his LFTs are improving he does not need Pentoxil filing, N- acetylcysteine or albumin replacement at this time. Charges/Coding Visit Charges Inpatient E&M: 86065 Init Hosp L3
--- NOTE | 2022-11-27 17:24 | NURSING ---
Patient states his blood sugar is 136 at this time per his own monitoring system.
--- NOTE | 2022-11-27 22:00 | NURSING ---
per patient, current blood sugar is 117
[2022-11-28] VITALS (8 sets, daily range): BP systolic 136–153; BP diastolic 94–110; PULSE 74–106; RESP 16–18; TEMP 36.6–37.4; O2SAT 96–100
[2022-11-28] MEDS: Phenobarbital 32.4 MG Tablet 64.8 MG PO ×7 (00:08→23:59)
[2022-11-28 06:16] LABS: Absolute Lymphocyte Count 2.28 X10^3/uL (0.83-4.51); Absolute Neutrophil Count 4.3 X10^3/uL (2.0-7.7); Basophil# 0.07 X10^3/uL; Eosinophil# 0.09 X10^3/uL; Eosinophils% 1.2 % (0-5); Hematocrit 40.7 % (40-54); Hemoglobin 13.7 g/dL (13.0-16.5); Lymphocyte # 2.28 X10^3/ul (0.83-4.51); Lymphocyte % 31.3 % (19-41); Mean Corp Hgb Conc 33.7 g/dL (32-36); Mean Corpuscular Hgb 33.7 pg (27.0-32.0); Mean Corpuscular Volume 100.2 fL (80-94); Mean Platelet Vol. 11.3 fl (6.2-12.0); Monocyte% 6.9 % (0-10); NRBC Flagged by Analyzer 0.3 % (0-5); Neutrophil % 58.9 % (47-70); Platelet Count 130 K/mm3 (150-450); RBC Distribution Width CV 15.3 % (11.6-14.6); RBC Distribution Width SD 57.1 fl (35.1-43.9); Red Blood Count 4.06 M/mm3 (4.6-6.2); White Blood Count 7.3 K/mm3 (4.4-11.0)
[2022-11-28 06:57] LABS: ALB/GLOB Ratio 0.7 RATIO (0.9-2.4); AST(SGOT) 293 U/L (15-37); Alanine Aminotransfer ALT/SGPT 197 U/L (16-61); Albumin, Serum 2.4 g/dL (3.2-5.0); Alkaline Phosphatase 571 U/L (45-117); Anion Gap 6 (5-15); BUN 10 mg/dL (7-18); BUN/Creat Ratio 10.2 RATIO (10-20); Calcium,Total 8.3 mg/dL (8.5-10.1); Chloride 101 mmol/L (98-107); Creatinine, Serum 0.98 mg/dL (0.70-1.30); EST Glomerular Filtration Rate 92 mL/min (>60); Est Glom Filt Rate - Afr Amer 111 mL/min (>60); Estimated Creatinine Clearance 113.28 ml/min; Globulin 3.5 g/dL (2.2-4.2); Glucose 53 mg/dL (74-106); Potassium 3.9 mmol/L (3.5-5.1); Protein, Total 5.9 g/dL (6.4-8.2); Sodium Level 138 mmol/L (136-145)
[2022-11-28] MEDS: Folic Acid 1 MG Tablet PO (08:21)
[2022-11-28] MEDS: Thiamine Hydrochloride 100 MG Tablet PO (08:21)
[2022-11-28] MEDS: predniSONE 10 MG Tablet PO (08:21)
[2022-11-28] MEDS: Lisinopril 10 MG Tablet PO (08:22)
[2022-11-28] MEDS: Magnesium Chloride 64 MG Delay Rel.Tablet 128 MG PO (08:22)
[2022-11-28 08:45] LABS: Bedside Glucose 204 mg/dL (74-106)
--- NOTE | 2022-11-28 10:44 | NURSING ---
Patient's current blood sugar is 101
--- NOTE | 2022-11-28 11:09 | PCM.PROGNOTE ---
Subjective Subjective Patient seen and examined. He had no complaints and had an uneventful night. Review of systems is otherwise negative. Objective Data Objective Data Vital Signs: Vital Signs Temp Pulse Resp BP Pulse Ox O2 Del Method 99.3 F H 85 18 148/105 H 96 Room Air 11/28/22 08:20 11/28/22 08:20 11/28/22 08:20 11/28/22 08:20 11/28/22 09:15 11/28/22 09:15 Oxygen Delivery Method Room Air Weight: 188 lb 4.396 oz Body Mass Index (BMI) 25.5 Intake & Output: Intake and Output for Last 24 Hours 11/26/22 11/27/22 11/28/22 23:59 23:59 23:59 Intake Total 2000 / 2800 2400 / 2400 100 / 100 Balance 2000 / 2800 2400 / 2400 100 / 100 Lab / Micro Data Result Diagrams: 11/28/22 05:35 11/28/22 05:35 Labs: Laboratory Results - last 24 hr 11/28/22 05:35: WBC 7.3, RBC 4.06 L, Hgb 13.7, Hct 40.7, MCV 100.2 H, MCH 33.7 H, MCHC 33.7, RDW Std Deviation 57.1 H, RDW Coeff of Keli 15.3 H, Plt Count 130 L, MPV 11.3, Immature Gran % (Auto) 0.700, Neut % (Auto) 58.9, Lymph % (Auto) 31.3, [place] % (Auto) 6.9, Eos % (Auto) 1.2, Baso % (Auto) 1.0, Absolute Neuts (auto) 4.3, Absolute Lymphs (auto) 2.28, Nucleated RBC % 0.3 11/28/22 05:35: Sodium 138, Potassium 3.9, Chloride 101, Carbon Dioxide 31.0, Anion Gap 6, BUN 10, Creatinine 0.98, Estim Creat Clear Calc 113.28, Est GFR (MDRD) Af Amer 111, Est GFR (MDRD) Non-Af 92, BUN/Creatinine Ratio 10.2, Glucose 53 L, Calcium 8.3 L, Total Bilirubin 3.30 H, AST 293 H, ALT 197 H, Alkaline Phosphatase 571 H, Total Protein 5.9 L, Albumin 2.4 L, Globulin 3.5, Albumin/Globulin Ratio 0.7 L 11/28/22 08:28: POC Glucose 204 H Radiography Diagnostic Testing: Radiology Impression MRCP 11/27/22 05:55 IMPRESSION: There is diffuse enlargement of the pancreas with aida-pancreatic edema suggesting acute pancreatitis. Electronically Signed: Nabor Rios MD at 15:12 EDT Reading Location ID and State: [facility] / [place] , Service support , Physical Exam Const alert, oriented x3 and no apparent distress General Appearance: cooperative HEENT normocephalic, head/scalp atraumatic and moist oral mucous membranes Eyes PERRL and EOMs intact bilaterally Neck no lymphadenopathy, supple and no JVD Lymph Lymphatic: no lymphadenopathy noted and no lymphedema noted Resp normal respiratory effort, normal air movement and clear to auscultation bilaterally Cardio regular rate, regular rhythm, S1 normal heart sound, S2 normal heart sound and no murmurs GI normal to inspection, nondistended, normoactive bowel sounds, soft to palpation, non-tender and non-distended Extremity normal capillary refill, no clubbing, cyanosis or edema and no calf tenderness Skin General Skin Exam: no breakdown Neuro CN's II-XII intact bilaterally, no focal motor deficits, no sensory deficits noted and deep tendon reflexes 2+ bilaterally Psych thought process normal, cooperative and affect normal Appearance: appropriate Assessment & Plan Assessment/Plan (1) Alcohol withdrawal: PLAN: Plan #Acute alcohol withdrawal On alcohol withdrawal protocol with phenobarbital. On gabapentin. Another adjunctive meds for symptomatic relief On thiamine, multivitamin folic acid. Monitor CIWA score. #Anxiety disorder: On home meds. #Hypertension: On lisinopril #Elevated liver enzymes: Trending downwards. MRCP showed evidence of acute pancreatitis but liver was normal GI consulted. Likely due to chronic alcohol abuse. 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 Insulin sliding scale. Accu-Cheks ACHS. DVT prophylaxis: low risk, encourage to ambulate Disposition: for dc tomorrow Charges/Coding Visit Charges Inpatient E&M: 40724 Subs Hosp L2
[2022-11-28] MEDS: hydrOXYzine PAM 25 MG Capsule 50 MG PO (16:41)
[2022-11-28 17:06] LABS: Bedside Glucose 83 mg/dL (74-106)
[2022-11-28 20:00] LABS: Bedside Glucose 60 mg/dL (74-106)
[2022-11-29] MEDS: hydrOXYzine PAM 25 MG Capsule 50 MG PO ×2 (00:08→11:13)
[2022-11-29 00:20] LABS: Bedside Glucose 58 mg/dL (74-106)
[2022-11-29 04:02] VITALS: BP 150/116; PULSE 93; RESP 16; TEMP 36.5; O2SAT 97
[2022-11-29] MEDS: Phenobarbital 32.4 MG Tablet 64.8 MG PO ×3 (04:06→15:21)
[2022-11-29 04:30] LABS: Bedside Glucose 74 mg/dL (74-106)
[2022-11-29 05:04] LABS: Absolute Lymphocyte Count 1.81 X10^3/uL (0.83-4.51); Absolute Neutrophil Count 4.5 X10^3/uL (2.0-7.7); Basophil# 0.06 X10^3/uL; Basophil% 0.9 % (0-1); Eosinophils% 1.4 % (0-5); Hematocrit 38.3 % (40-54); Hemoglobin 12.8 g/dL (13.0-16.5); Lymphocyte # 1.81 X10^3/ul (0.83-4.51); Lymphocyte % 25.7 % (19-41); Mean Corp Hgb Conc 33.4 g/dL (32-36); Mean Corpuscular Hgb 34.3 pg (27.0-32.0); Mean Corpuscular Volume 102.7 fL (80-94); Mean Platelet Vol. 11.3 fl (6.2-12.0); Monocyte# 0.56 X10^3/uL; Monocyte% 7.9 % (0-10); NRBC Flagged by Analyzer 0 % (0-5); Neutrophil # 4.47 X10^3/uL (2.7-7.7); Neutrophil % 63.4 % (47-70); Platelet Count 113 K/mm3 (150-450); RBC Distribution Width CV 15.5 % (11.6-14.6); RBC Distribution Width SD 58.3 fl (35.1-43.9); Red Blood Count 3.73 M/mm3 (4.6-6.2); White Blood Count 7.1 K/mm3 (4.4-11.0)
[2022-11-29 08:00] VITALS: BP 148/109; PULSE 94; RESP 18; TEMP 37.3; O2SAT 98
[2022-11-29 08:04] LABS: ALB/GLOB Ratio 0.6 RATIO (0.9-2.4); AST(SGOT) 171 U/L (15-37); Alanine Aminotransfer ALT/SGPT 153 U/L (16-61); Albumin, Serum 2.2 g/dL (3.2-5.0); Alkaline Phosphatase 474 U/L (45-117); Anion Gap 6 (5-15); BUN 9 mg/dL (7-18); BUN/Creat Ratio 8.8 RATIO (10-20); Calcium,Total 8.4 mg/dL (8.5-10.1); Chloride 97 mmol/L (98-107); Creatinine, Serum 1.02 mg/dL (0.70-1.30); EST Glomerular Filtration Rate 87 mL/min (>60); Est Glom Filt Rate - Afr Amer 106 mL/min (>60); Estimated Creatinine Clearance 108.83 ml/min; Globulin 3.4 g/dL (2.2-4.2); Glucose 213 mg/dL (74-106); Potassium 4.3 mmol/L (3.5-5.1); Protein, Total 5.6 g/dL (6.4-8.2); Sodium Level 133 mmol/L (136-145)
[2022-11-29] MEDS: Folic Acid 1 MG Tablet PO (08:06)
[2022-11-29] MEDS: Lisinopril 10 MG Tablet PO (08:06)
[2022-11-29] MEDS: Thiamine Hydrochloride 100 MG Tablet PO (08:06)
[2022-11-29] MEDS: Magnesium Chloride 64 MG Delay Rel.Tablet 128 MG PO (08:06)
[2022-11-29] MEDS: predniSONE 10 MG Tablet PO (08:06)
[2022-11-29 09:06] LABS: Bedside Glucose 183 mg/dL (74-106)
--- NOTE | 2022-11-29 09:30 | DS.PCM_ITS ---
Providers Date of Admission: 11/26/22 Date of Discharge: 11/29/22 Primary Care Physician: BOY Ortega Consultations 11/26/22 20:36 Consult: Gastroenterology Routine Consulting Provider: Friend,Chava Reason for Consult: Elevated bilirubin EMERGENT Consult: No MD Notified: Yes Date Notified: 11/26/22 Time Notified: 20:31 Method of Notification: Verbal Reason For Visit: DESIRE FOR ALCOHOL WITHDRAWAL Diagnosis Discharge Diagnosis (1) Alcohol withdrawal: Status: Acute Code(s): F10.939 - Alcohol use, unspecified with withdrawal, unspecified Plan #Acute alcohol withdrawal * On alcohol withdrawal protocol with phenobarbital. On gabapentin. Another adjunctive meds for symptomatic relief * On thiamine, multivitamin folic acid. * Monitor CIWA score. #Anxiety disorder: stable #Hypertension: On lisinopril #Elevated liver enzymes: * Trending downwards. MRCP showed evidence of acute pancreatitis but liver was normal * on board Likely due to chronic alcohol abuse. 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 Insulin sliding scale. Accu-Cheks ACHS. DVT prophylaxis: low risk, encourage to ambulate Disposition: for dc tomorrow Medications at Discharge Home Medications cetirizine 10 mg capsule (Zyrtec) 10 mg PO DAILY PRN allergies 06/22/22 Insulin Pump 09/09/22 blood sugar diagnostic (Contour Next Test Strips) #200 ea 09/09/22 blood sugar diagnostic (Accu-Chek Guide test strips) #100 ea 10/28/22 lancets (Accu-Chek Fastclix Lancet Drum) #200 ea 10/28/22 insulin glargine 100 unit/mL (3 mL) subcutaneous pen (Lantus Solostar U-100 Insulin) 38 unit subcut QAM Check with primary doctor 11/26/22 insulin lispro 100 unit/mL subcutaneous solution (Humalog U-100 Insulin) 100 unit continuous subcutaneous infusion .continuous Check with primary doctor 11/26/22 lisinopril 20 mg tablet 10 mg PO DAILY Check with primary doctor 11/26/22 magnesium 200 mg tablet 400 mg PO DAILY Check with primary doctor 11/26/22 prednisone 5 mg tablet 10 mg PO DAILY Check with primary doctor 11/26/22 Hospital Course Operations None Procedures None Summary of Care Provided Minutes Spent on Discharge: 45 Hospital Course: Patient is a 37 y/o male with a PMH as outlined who was admitted with a complaint of nausea, tremors and feeling warm. He had a history of chronic alcohol abuse and had been drinking since age 15 years. He had increasingly been drinking jones and drank a fifth of hard liquir and 4 bottles of beer daily. His last drink was the day before admission and started having withdrawal symptoms. On admission, his AST, ALT and ALP were markedly elevated. He was also mildly hypokalemic and urine tox was negative. Urine tox was <3. He was admitted and managed for acute alcohol withdrawal. He was started on acute alcohol withdrawal with phenobarbital. GI was also consulted o/a of elevated liver enzymes. He had MRCP which showed evidence of acute pancreatitis and liver was largely normal. He tolerated the 3 day detox, and liver enzymes gradually trended downwards. He remained stable and was discharged on 11/29/2022. He was discharged to a rehab facility, and is to follow up with his PCP within 1-2 weeks. Patient seen and examined. He had no active complaints and had an uneventful night. Review of systems was otherwise negative. Labs and vitals reviewed. HOme meds reviewed and reconciled. Physical Exam Const alert, oriented x3 and no apparent distress General Appearance: cooperative, comfortable and well kempt HEENT normocephalic, head/scalp atraumatic, hearing grossly normal bilaterally and moist oral mucous membranes Mouth: oral and palatal mucosa normal Eyes PERRL, EOMs intact bilaterally and conjunctivae normal Neck no lymphadenopathy, supple and no JVD Lymph Lymphatic: no lymphadenopathy noted and no lymphedema noted Resp normal respiratory effort, normal air movement, no use of accessory muscles and clear to auscultation bilaterally Cardio regular rate, regular rhythm, S1 normal heart sound, S2 normal heart sound and no murmurs GI normal to inspection, nondistended, normoactive bowel sounds, soft to palpation, non-tender and non-distended Extremity normal to inspection, full ROM, normal capillary refill, no clubbing, cyanosis or edema and no calf tenderness Skin General Skin Exam: no breakdown Neuro oriented x3, CN's II-XII intact bilaterally, moves all extremities, no focal motor deficits, no sensory deficits noted and deep tendon reflexes 2+ bilaterally Sensorium / Orientation: awake and alert Motor Exam: strength 5/5 throughout Psych thought process normal, cooperative and affect normal Appearance: appropriate Weight / BMI Weight Weight: 188 lb 4.396 oz Body Mass Index (BMI) 25.5 ABG / Lab / Microbiology Data Result Diagrams: 11/29/22 04:40 11/29/22 11:30 Laboratory: Laboratory Results - last 24 hr 11/28/22 16:45: POC Glucose 83 11/28/22 19:37: POC Glucose 60 L 11/28/22 23:57: POC Glucose 58 L 11/29/22 04:08: POC Glucose 74 11/29/22 04:40: WBC 7.1, RBC 3.73 L, Hgb 12.8 L, Hct 38.3 L, MCV 102.7 H, MCH 34.3 H, MCHC 33.4, RDW Std Deviation 58.3 H, RDW Coeff of Keli 15.5 H, Plt Count 113 L, MPV 11.3, Immature Gran % (Auto) 0.700, Neut % (Auto) 63.4, Lymph % (Auto) 25.7, [place] % (Auto) 7.9, Eos % (Auto) 1.4, Baso % (Auto) 0.9, Absolute Neuts (auto) 4.5, Absolute Lymphs (auto) 1.81, Nucleated RBC % 0 11/29/22 04:40: Sodium 133 L, Potassium 4.3, Chloride 97 L, Carbon Dioxide 30.0, Anion Gap 6, BUN 9, Creatinine 1.02, Estim Creat Clear Calc 108.83, Est GFR (MDRD) Af Amer 106, Est GFR (MDRD) Non-Af 87, BUN/Creatinine Ratio 8.8 L, Glucose 213 H, Calcium 8.4 L, Total Bilirubin 2.30 H, AST 171 H, ALT 153 H, Alkaline Phosphatase 474 H, Total Protein 5.6 L, Albumin 2.2 L, Globulin 3.4, Albumin/Globulin Ratio 0.6 L 11/29/22 08:04: POC Glucose 183 H D/C Instructions Discharge Diet: 1800 Calorie Control Diet Meaningful Use Info Meaningful Use Diagnoses (Choose all that apply): None applicable Discharge Plan Admission Admit Date/Time: 11/26/22 19:42 Primary Reason for Your Visit: acute alcohol withdrawal Attending Provider: Erna Perdomo Primary Care Provider: Jaren Wood NP Consulting Providers: Chava Tesfaye ; Ambrocio Pozo Discharge Orders/Prescriptions Prescriptions: Continued Zyrtec 10 mg capsule 10 mg PO DAILY PRN (Reason: allergies) (DME) Insulin Pump See Rx Instructions .Route .MEDSUPPLY Rx Instructions: Patient has Humalog Insulin Pump average is about 60 units in one day. (DME) Contour Next Test Strips Strip See Rx Instructions .Route Qty: 200 11RF Rx Instructions: 6x/day lisinopril 20 mg tablet 10 mg PO DAILY prednisone 5 mg tablet 10 mg PO DAILY insulin glargine [Lantus Solostar U-100 Insulin] 100 unit/mL (3 mL) insulin pen 38 unit subcut QAM insulin lispro [Humalog U-100 Insulin] 100 unit/mL solution 100 unit continuous subcutaneous infusion .continuous Rx Instructions: 48 units to 60 units daily magnesium 200 mg Tablet 400 mg PO DAILY (DME) lancets [Accu-Chek Fastclix Lancet Drum] Misc See Rx Instructions .Route Qty: 200 5RF Rx Instructions: 4x/day (DME) Accu-Chek Guide test strips Strip See Rx Instructions .Route Qty: 100 5RF Rx Instructions: 4x/day Referrals / Follow Up: Chava Tesfaye DO [Med Staff - Active Staff] - Within 2 Weeks Jaren Wood NP, RESPIRATORY PRACTITIONER-C [Primary Care Provider] - Within 2 Weeks Disposition Disposition (needs filled in before D/C Order can be placed): Home, Self Care Charges/Coding Visit Charges Inpatient E&M: 65653 Disch Hosp >30min
--- NOTE | 2022-11-29 09:32 | DCINST_ITS ---
Discharge Instructions Activity Discharge Activity: Return to Normal Activity Weight Bearing Status: Weight bearing as tolerated Dressing / Incision Call your doctor if you observe: Fever of 101 or Higher, Shortness of breath, Swelling in the ankles, Chest pain and Increased palpitations (irregular heartbeat) Follow Up Care Test Results: Test results from this visit will be discussed in further detail at your follow- up appointment, if applicable. Discharge Plan Admission Admit Date/Time: 11/26/22 19:42 Primary Reason for Your Visit: acute alcohol withdrawal Attending Provider: Erna Perdomo Primary Care Provider: Jaren Wood NP Consulting Providers: Chava Tesfaye ; Ambrocio Pozo Discharge Orders/Prescriptions Prescriptions: Continued Zyrtec 10 mg capsule 10 mg PO DAILY PRN (Reason: allergies) (DME) Insulin Pump See Rx Instructions .Route .MEDSUPPLY Rx Instructions: Patient has Humalog Insulin Pump average is about 60 units in one day. (DME) Contour Next Test Strips Strip See Rx Instructions .Route Qty: 200 11RF Rx Instructions: 6x/day lisinopril 20 mg tablet 10 mg PO DAILY prednisone 5 mg tablet 10 mg PO DAILY insulin glargine [Lantus Solostar U-100 Insulin] 100 unit/mL (3 mL) insulin pen 38 unit subcut QAM insulin lispro [Humalog U-100 Insulin] 100 unit/mL solution 100 unit continuous subcutaneous infusion .continuous Rx Instructions: 48 units to 60 units daily magnesium 200 mg Tablet 400 mg PO DAILY (DME) lancets [Accu-Chek Fastclix Lancet Drum] Misc See Rx Instructions .Route Qty: 200 5RF Rx Instructions: 4x/day (DME) Accu-Chek Guide test strips Strip See Rx Instructions .Route Qty: 100 5RF Rx Instructions: 4x/day Referrals / Follow Up: Chava Tesfaye DO [Med Staff - Active Staff] - Within 2 Weeks Jaren Wood NP, EDITOR DEPARTMENT-C [Primary Care Provider] - Within 2 Weeks Disposition Disposition (needs filled in before D/C Order can be placed): Home, Self Care
--- NOTE | 2022-11-29 10:14 | PHA.DC.MR ---
Pharmacy Service has performed discharge medication reconciliation for this patient. The patient's discharge medication list was reviewed for discrepancies and discrepancies were resolved. Home Medications cetirizine 10 mg capsule (Zyrtec) 10 mg PO DAILY PRN allergies 06/22/22 Insulin Pump 09/09/22 blood sugar diagnostic (Contour Next Test Strips) #200 ea 09/09/22 blood sugar diagnostic (Accu-Chek Guide test strips) #100 ea 10/28/22 lancets (Accu-Chek Fastclix Lancet Drum) #200 ea 10/28/22 insulin glargine 100 unit/mL (3 mL) subcutaneous pen (Lantus Solostar U-100 Insulin) 38 unit subcut QAM Check with primary doctor 11/26/22 insulin lispro 100 unit/mL subcutaneous solution (Humalog U-100 Insulin) 100 unit continuous subcutaneous infusion .continuous Check with primary doctor 11/26/22 lisinopril 20 mg tablet 10 mg PO DAILY Check with primary doctor 11/26/22 magnesium 200 mg tablet 400 mg PO DAILY Check with primary doctor 11/26/22 prednisone 5 mg tablet 10 mg PO DAILY Check with primary doctor 11/26/22
--- NOTE | 2022-11-29 11:18 | NURSING ---
Pt blood sugar checked, 457. Pt has his insulin pump and is giving himself insulin via pump. Pt usually checks 30min after dosing himself with insulin. Will recheck Blood sugar in 30min but this RN will do a lab back up. Lab called and aware.
[2022-11-29 11:35] LABS: Bedside Glucose 457 mg/dL (74-106)
[2022-11-29 11:50] LABS: Glucose 440 mg/dL (74-106)
--- NOTE | 2022-11-29 12:38 | ADDICTION ---
Patient has agreed to residential treatment with some ambivalence. He will be admitted to the [facility] in [facility] today. They will provide transportation and will call the nurses station when they arrive. It should be by 3pm.
[2022-11-29 12:45] LABS: Bedside Glucose 341 mg/dL (74-106)
[2022-11-29 13:35] LABS: Bedside Glucose 237 mg/dL (74-106)
--- NOTE | 2022-11-29 15:00 | CHAPLAIN ---
Type of Pastoral Visit _x__ Initial Visit ___ Follow-up Visit ___ On-call Visit ___ General Patient Visit ___ Spiritual Assessment ___ Family Conference ___ Bereavement ___ Rapid Response ___ Code Blue ___ Other (describe below) Pastoral Care Referral From _x__ Patient ___ Family ___ Nurse ___ Physician ___ Cnc Mill And Lathe Operator ___ Wire Rigger ___ Other (describe below) Sacrament/Intervention _x__ Active listening ___ Anointing ___ Taoist ___ Bereavement ___ Communion _x__ [place] exploration ___ ___ Life review _x__ Prayer ___ Reconciliation ___ Sacrament of Sick _x__ Supportive presence ___ Wedding ___ Other (describe below) Pastoral Comments patient was walking in the [place] and this director regulatory agency introduced self and offered support; pt began by stating do you know my situation? and then proceeded to describe his situation and frustration/anger at being told that he was going to residential treatment instead of IOP which was what I was told previously and had agreed to do; pt continues now I won't see my and kids for 30 days; pt states that he will do what he has been told to do because I want to get over this; again pt admits his feelings of anger and frustration and has some tears; gave presence, time to listen, encouragement to continue with plan for recovery, and validation of feelings; pt states that he is part of a cheondoism and would need prayers for his condition; talked about a future with better possibilities, family time, and outcomes; pt agrees with goals and pursuit of treatment; pt is expressive of support and visit, God maybe sent you;
[2022-11-29 15:12] VITALS: BP 156/99; PULSE 105; RESP 18; TEMP 37.2; O2SAT 99
--- NOTE | 2022-11-29 15:34 | PN_ITS ---
Subjective Subjective Patient seen and examined today at the bedside. He is actually feeling a lot better and is scheduled to go to inpatient rehab for alcohol addiction. Objective Data Objective Data Vital Signs: Vital Signs Temp Pulse Resp BP Pulse Ox O2 Del Method 98.9 F 105 H 18 156/99 H 99 Room Air 11/29/22 15:12 11/29/22 15:12 11/29/22 15:12 11/29/22 15:12 11/29/22 15:12 11/29/22 15:12 Oxygen Delivery Method Room Air Weight: 188 lb 4.396 oz Body Mass Index (BMI) 25.5 Intake & Output: Intake and Output for Last 24 Hours 11/27/22 11/28/22 11/29/22 23:59 23:59 23:59 Intake Total 2400 / 2400 1660 / 1660 Balance 2400 / 2400 1660 / 1660 Lab / Micro Data Result Diagrams: 11/29/22 04:40 11/29/22 11:30 Labs: Laboratory Results - last 24 hr 11/28/22 16:45: POC Glucose 83 11/28/22 19:37: POC Glucose 60 L 11/28/22 23:57: POC Glucose 58 L 11/29/22 04:08: POC Glucose 74 11/29/22 04:40: WBC 7.1, RBC 3.73 L, Hgb 12.8 L, Hct 38.3 L, MCV 102.7 H, MCH 34.3 H, MCHC 33.4, RDW Std Deviation 58.3 H, RDW Coeff of Keli 15.5 H, Plt Count 113 L, MPV 11.3, Immature Gran % (Auto) 0.700, Neut % (Auto) 63.4, Lymph % (Auto) 25.7, [place] % (Auto) 7.9, Eos % (Auto) 1.4, Baso % (Auto) 0.9, Absolute Neuts (auto) 4.5, Absolute Lymphs (auto) 1.81, Nucleated RBC % 0 11/29/22 04:40: Sodium 133 L, Potassium 4.3, Chloride 97 L, Carbon Dioxide 30.0, Anion Gap 6, BUN 9, Creatinine 1.02, Estim Creat Clear Calc 108.83, Est GFR (MDRD) Af Amer 106, Est GFR (MDRD) Non-Af 87, BUN/Creatinine Ratio 8.8 L, Glucose 213 H, Calcium 8.4 L, Total Bilirubin 2.30 H, AST 171 H, ALT 153 H, Alkaline Phosphatase 474 H, Total Protein 5.6 L, Albumin 2.2 L, Globulin 3.4, Albumin/Globulin Ratio 0.6 L 11/29/22 08:04: POC Glucose 183 H 11/29/22 11:13: POC Glucose 457 H* 11/29/22 11:30: Glucose 440 H 11/29/22 12:22: POC Glucose 341 H 11/29/22 13:15: POC Glucose 237 H Physical Exam Const alert, oriented x3 and no apparent distress General Appearance: cooperative, comfortable and well kempt HEENT normocephalic, head/scalp atraumatic, hearing grossly normal bilaterally and moist oral mucous membranes Mouth: oral and palatal mucosa normal Eyes PERRL, EOMs intact bilaterally and conjunctivae normal Neck no lymphadenopathy, supple and no JVD Lymph Lymphatic: no lymphadenopathy noted and no lymphedema noted Resp normal respiratory effort, normal air movement, no use of accessory muscles and clear to auscultation bilaterally Cardio regular rate, regular rhythm, S1 normal heart sound, S2 normal heart sound and no murmurs GI normal to inspection, nondistended, normoactive bowel sounds, soft to palpation, non-tender and non-distended Extremity normal to inspection, full ROM, normal capillary refill, no clubbing, cyanosis or edema and no calf tenderness Skin General Skin Exam: no breakdown Neuro oriented x3, CN's II-XII intact bilaterally, moves all extremities, no focal motor deficits, no sensory deficits noted and deep tendon reflexes 2+ bilaterally Sensorium / Orientation: awake and alert Motor Exam: strength 5/5 throughout Psych thought process normal, cooperative and affect normal Appearance: appropriate Assessment & Plan Assessment/Plan (1) Alcohol withdrawal: PLAN: Plan #Acute alcohol withdrawal * On alcohol withdrawal protocol with phenobarbital. On gabapentin. Another adjunctive meds for symptomatic relief * On thiamine, multivitamin folic acid. * Monitor CIWA score. #Anxiety disorder: On home meds. #Hypertension: On lisinopril #Elevated liver enzymes: * Trending downwards. MRCP ordered. Likely due to chronic alcohol abuse. * MRCP did not show any obstructive physiology. * Recommend outpatient liver biopsy and work-up for autoimmune disease is pending. 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 Insulin sliding scale. Accu-Cheks ACHS. DVT prophylaxis: low risk, encourage to ambulate Charges/Coding Visit Charges Inpatient E&M: 61169 [facility] Hosp L3
[2022-11-29 16:16] LABS: Bedside Glucose 158 mg/dL (74-106)
== END 2022-11-29 15:36 | disposition home or self-care (01) | DRG 439 ==
LOC: ED 19:00 → MS3 20:12
PROVIDERS: Admitting Provider Hospitalist; Emergency Provider Student in an Organized Health Care Education/Training Program; PCP Nurse Practitioner Family; Visit Provider Student in an Organized Health Care Education/Training Program
DX: K85.20 Alcohol induced acute pancreatitis without necrosis or infection (principal); F10.239 Alcohol dependence with withdrawal, unspecified; G70.00 Myasthenia gravis without (acute) exacerbation; K70.10 Alcoholic hepatitis without ascites; E10.65 Type 1 diabetes mellitus with hyperglycemia; K76.0 Fatty (change of) liver, not elsewhere classified; E87.6 Hypokalemia; I10 Essential (primary) hypertension; F41.9 Anxiety disorder, unspecified; Z96.41 Presence of insulin pump (external) (internal); Y90.9 Presence of alcohol in blood, level not specified
CPT/HCPCS: 36415; 74181; 80048; 80053; 80076; 80307; 82077; 82947; 82962; 83690; 83735; 85025; 85610; 93005; 99282; J7030; A4216; J2405

== ENCOUNTER → 2023-01-18 | Outpatient (CLI) | payer OTHER, SELFPAY ==
[2023-01-18 12:46] LABS: Absolute Lymphocyte Count 1.28 X10^3/uL (0.83-4.51); Absolute Neutrophil Count 8.1 X10^3/uL (2.0-7.7); Basophil# 0.06 X10^3/uL; Basophil% 0.6 % (0-1); Eosinophil# 0.11 X10^3/uL; Eosinophils% 1.1 % (0-5); Hematocrit 42.3 % (40-54); Lymphocyte # 1.28 X10^3/ul (0.83-4.51); Lymphocyte % 12.7 % (19-41); Mean Corp Hgb Conc 33.1 g/dL (32-36); Mean Corpuscular Hgb 32.1 pg (27.0-32.0); Mean Platelet Vol. 10.4 fl (6.2-12.0); Monocyte# 0.45 X10^3/uL; Monocyte% 4.5 % (0-10); NRBC Flagged by Analyzer 0 % (0-5); Neutrophil # 8.13 X10^3/uL (2.7-7.7); Neutrophil % 80.8 % (47-70); Platelet Count 325 K/mm3 (150-450); RBC Distribution Width CV 11.4 % (11.6-14.6); RBC Distribution Width SD 41.1 fl (35.1-43.9); Red Blood Count 4.36 M/mm3 (4.6-6.2); White Blood Count 10.1 K/mm3 (4.4-11.0)
[2023-01-18 13:07] LABS: Vitamin B12 353 pg/mL (211-911)
[2023-01-18 13:31] LABS: AST(SGOT) 18 U/L (15-37); Alanine Aminotransfer ALT/SGPT 23 U/L (16-61); Albumin, Serum 3.5 g/dL (3.2-5.0); Alkaline Phosphatase 85 U/L (45-117); Anion Gap 6 (5-15); BUN 12 mg/dL (7-18); BUN/Creat Ratio 11.4 RATIO (10-20); Calcium,Total 9.3 mg/dL (8.5-10.1); Chloride 100 mmol/L (98-107); Creatinine, Serum 1.05 mg/dL (0.70-1.30); EST Glomerular Filtration Rate 84 mL/min (>60); Est Glom Filt Rate - Afr Amer 102 mL/min (>60); Globulin 3.5 g/dL (2.2-4.2); Glucose 243 mg/dL (74-106); Potassium 3.9 mmol/L (3.5-5.1); Sodium Level 135 mmol/L (136-145); Thyroid Stim Hormone (TSH) 0.96 uIU/mL (0.358-3.74)
[2023-01-20 14:09] LABS: Vitamin D 1,25-Dihydroxy 43.7 pg/mL (24.8-81.5)
[2023-01-21 14:09] LABS: ACHR Recep AB, Blocking 14 % (0-25); Vitamin B1, Thiamine 146.6 nmol/L (66.5-200.0)
== END | disposition home or self-care (01) ==
LOC: BIMLAB 09:47
PROVIDERS: Psychiatry & Neurology Neurology; PCP Nurse Practitioner Family; Visit Provider Nurse Practitioner Family
DX: G70.00 Myasthenia gravis without (acute) exacerbation (principal); E10.9 Type 1 diabetes mellitus without complications; R53.83 Other fatigue; D64.9 Anemia, unspecified; K70.10 Alcoholic hepatitis without ascites
CPT/HCPCS: 36415; 80053; 82607; 82652; 82746; 83519; 84425; 84443; 85025

== ENCOUNTER → 2023-02-22 | Outpatient (CLI) | payer OTHER, SELFPAY ==
--- NOTE | 2023-02-22 13:30 | BD_ITS ---
STUDY: DUAL ENERGY X-RAY ABSORPTIOMETRY / DXA REASON FOR EXAM: Male, 37 years old. 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 COMPARISON: None. FINDINGS: Lumbar Spine (L1-L4): g/cm2 (1.060) / T-score (-0.3) / Z-score (-0.2) Findings are suggestive of normal bone density with a low fracture risk. Left Femur Total: g/cm2 (0.930) / T-score (-0.7) / Z-score (-0.5) Left Femoral Neck: g/cm2 (0.746) / T-score (-1.4) / Z-score (-0.9) Right Femur Total: g/cm2 (0.926) / T-score (-0.7) / Z-score (-0.6) Right Femoral Neck: g/cm2 (0.784) / T-score (-1.1) / Z-score (-0.7) BD/Dexa Bone Density Study IMPRESSION: The patient is considered osteopenic as outlined below according to World Mio Organization (WHO) criteria with a low fracture risk. Reference Information: The T-score is the number of standard deviations above or below the standard which is normal for young adults at their peak bone mineral density. The World Health Organization (WHO) interprets the T-scores as follows: Above -1 Normal bone density Between -1 and -2.5 Osteopenia Equal to / or below -2.5 Osteoporosis As a practical clinical guideline, osteopenia may be graded as follows: Mild -1 through -1.5 Moderate -1.6 through -2.0 Severe -2.1 through -2.4 The Z-score is the number of standard deviations above or below age-matched controls. A Z-score of less than -1.5 would be considered abnormal. References: 1. NIH Osteoporosis and Related Bone Diseases www osteo.org 2. International Society for Clinical Densitometry www iscd.org 3. National Osteoporosis Foundation www nof.org Electronically Signed: Juma Beatty MD at 15:06 EDT ,
== END | disposition home or self-care (01) ==
LOC: OPBD 13:22
PROVIDERS: PCP Nurse Practitioner Family; Referring Provider Psychiatry & Neurology Neurology; Visit Provider Psychiatry & Neurology Neurology
DX: G70.00 Myasthenia gravis without (acute) exacerbation (principal); Z79.52 Long term (current) use of systemic steroids
CPT/HCPCS: 77080

== ENCOUNTER 2023-10-14 18:05 | Inpatient (IN) | payer OTHER, SELFPAY ==
[2023-10-14] VITALS (7 sets, daily range): BP systolic 150–185; BP diastolic 96–111; PULSE 110–130; RESP 22–31; TEMP 36.1–37.9; O2SAT 93–100; BMI 24.7
[2023-10-14 18:28] LABS: Bedside Glucose 93 mg/dL (74-106)
--- NOTE | 2023-10-14 18:31 | CT_ITS ---
STUDY: CT BRAIN WITHOUT CONTRAST REASON FOR EXAM: Male, 38 years old. Trauma RADIATION DOSAGE (If Supplied By Facility): CTDIvol = ( 44.99 ) mGy, DLP = ( 829.85 ) mGycm TECHNIQUE: Transaxial CT imaging of the brain was performed without administration of intravenous contrast material. Individualized dose optimization techniques were used for this CT. COMPARISON: No relevant priors. FINDINGS: Normal soft tissue structures. Normal calvarium. Normal size ventricles and extra-axial spaces for the patient''s age. Normal white matter tracts of the cerebral hemispheres. Normal basal ganglia and thalami. Normal brainstem. Normal cerebellum. There is no intracranial hemorrhage. There are no findings of an acute ischemic infarction. Mucosal thickening in the right maxillary sinus. CT/Brain/Head without Contrast IMPRESSION: No acute intracranial pathology of the brain. Electronically Signed: Lenny Walker DO at 19:30 EST ,
[2023-10-14] MEDS: DiphenhydrAMINE 50 MG/ML Syringe 12.5 MG IV (18:32)
[2023-10-14] MEDS: Metoclopramide 10 MG/2 ML Vial 5 MG IV (18:32)
[2023-10-14 18:51] LABS: Absolute Lymphocyte Count 0.31 X10^3/uL (0.83-4.51); Absolute Neutrophil Count 9.4 X10^3/uL (2.0-7.7); Basophil# 0.04 X10^3/uL; Basophil% 0.4 % (0-1); Hematocrit 49.3 % (40-54); Hemoglobin 17.1 g/dL (13.0-16.5); Lymphocyte # 0.31 X10^3/ul (0.83-4.51); Lymphocyte % 2.8 % (19-41); Mean Corp Hgb Conc 34.7 g/dL (32-36); Mean Corpuscular Hgb 32.9 pg (27.0-32.0); Mean Platelet Vol. 9.9 fl (6.2-12.0); Monocyte# 1.23 X10^3/uL; Monocyte% 11.2 % (0-10); NRBC Flagged by Analyzer 0 % (0-5); Neutrophil # 9.37 X10^3/uL (2.7-7.7); POSITIVE DIFFERENTIAL YES; Platelet Count 207 K/mm3 (150-450); RBC Distribution Width SD 49.1 fl (35.1-43.9); Red Blood Count 5.19 M/mm3 (4.6-6.2)
[2023-10-14] MEDS: Lorazepam 2 MG/ML WCH Syringe 0.5 MG IV ×2 (18:54→20:33)
[2023-10-14] MEDS: 0.9% Normal Saline (500mL Bag) 500 ML 999 ML IV (18:55)
[2023-10-14 19:01] LABS: Differential Indicated SCAN CRITERIA MET
[2023-10-14 19:07] LABS: Alcohol, Blood (Medical)-Serum < 3.0 mg/dL
[2023-10-14 19:08] LABS: AST(SGOT) 327 U/L (15-37); Alanine Aminotransfer ALT/SGPT 156 U/L (16-61); Albumin, Serum 4.5 g/dL (3.2-5.0); Alkaline Phosphatase 155 U/L (45-117); Anion Gap 19 (5-15); BUN 14 mg/dL (7-18); BUN/Creat Ratio 7.9 RATIO (10-20); Bilirubin, Direct 0.41 mg/dL (0.00-0.30); Calcium,Total 10.3 mg/dL (8.5-10.1); Chloride 93 mmol/L (98-107); Creatinine, Serum 1.77 mg/dL (0.70-1.30); EST Glomerular Filtration Rate 46 mL/min (>60); Est Glom Filt Rate - Afr Amer 56 mL/min (>60); Estimated Creatinine Clearance 62.11 ml/min; Glucose 68 mg/dL (74-106); Potassium 3.8 mmol/L (3.5-5.1); Protein, Total 8.5 g/dL (6.4-8.2); Sodium Level 134 mmol/L (136-145)
[2023-10-14 19:09] LABS: Platelet Estimate ADEQUATE (ADEQ); Toxic Granulation 1+
[2023-10-14 19:10] LABS: Anisocytosis RARE; Macrocytosis RARE
--- NOTE | 2023-10-14 19:15 | RAD_ITS ---
INDICATION: Trauma EXAMINATION/TECHNIQUE: X-RAY - LEFT XR Elbow Min 3 Views COMPARISON: FINDINGS: SOFT TISSUES: No soft tissue swelling or gas. No radiopaque foreign body. BONES/JOINTS: There is no displacement of the anterior or posterior fat pads. No acute fracture or subluxation. Normal alignment. Preservation of the joint space. No sclerotic or destructive changes observed. RAD/Elbow min 3 Views IMPRESSION: Negative. Electronically Signed: Lenny Walker DO at 19:31 EST ,
--- NOTE | 2023-10-14 19:15 | RAD_ITS ---
INDICATION: cough EXAMINATION/TECHNIQUE: X-RAY - XR Chest 1 View COMPARISON: FINDINGS: LINES/DEVICES: None. LUNGS: No consolidation, edema or effusion. No pneumothorax. MEDIASTINUM AND CARDIOVASCULAR STRUCTURES: Cardiac silhouette not enlarged. Central airways and mediastinal contour are unremarkable. BONES AND SOFT TISSUES: Unremarkable. RAD/Chest 1 View (Portable) IMPRESSION: No radiographic evidence of acute cardiopulmonary disease. Electronically Signed: Lenny Walker DO at 19:30 EST ,
--- NOTE | 2023-10-14 19:15 | RAD_ITS ---
INDICATION: Trauma EXAMINATION/TECHNIQUE: X-RAY - LEFT XR Shoulder 4 VIEWS COMPARISON: FINDINGS: SOFT TISSUES: No soft tissue swelling or gas. No radiopaque foreign body. BONES/JOINTS: No acute fracture or subluxation.. Normal alignment. Preservation of the joint space.. No sclerotic or destructive changes observed. RAD/Shoulder min 2 Views IMPRESSION: Negative. Electronically Signed: Lenny Walker DO at 19:33 EST ,
[2023-10-14] MEDS: Dextrose 50%-Water 25 GM/50 ML DISP.SYRIN IV (19:30)
[2023-10-14] MEDS: Dextrose 5%/0.9% NaCl 1,000 ML 100 ML IV (19:45)
--- NOTE | 2023-10-14 20:38 | EX.ED.DYSGE1 ---
HPI History of Present Illness Chief Complaint: Hypoglycemia Informant: patient, family and EMS Narrative Narrative: Patient presents via EMS secondary to low blood sugar and altered mental status. Patient reportedly has had nausea, vomiting, and diarrhea over the past several days. He states he started feeling ill on Tuesday but did go to work. He left work after only an hour on and did not go to work today. His who he is currently from called today and noted that his speech was abnormal. She went to the house and found him on the floor. His blood sugar was reportedly around 100, but when EMS arrived it had dropped to 64. They gave him oral glucose and transported him. [facility] Medical History (Updated 10/14/23 @ 20:[address] Keyana Vanegas MD) Alcoholic hepatitis Anemia Anxiety Elevated bilirubin Fatty liver Hypertension Ocular myasthenia gravis Presence of insulin pump Tachycardia Type 1 diabetes mellitus URI (upper respiratory infection) Home Medications Insulin Pump 09/09/22 [History Last Taken Unknown] lancets (Accu-Chek Fastclix Lancet Drum) #200 ea 10/28/22 [Rx Last Taken Unknown] rosuvastatin 5 mg tablet 5 mg PO DAILY #90 tabs 03/28/23 [Rx Last Taken Unknown] calcium carbonate 600 mg-vitamin D3 10 mcg (400 unit) tablet 1 tab PO DAILY #60 tabs 06/07/23 [Rx Last Taken Unknown] Humalog U-100 Insulin 100 unit/mL subcutaneous solution (insulin lispro) 100 unit continuous subcutaneous infusion .continuous Check with primary doctor #90 mL 09/29/23 [Rx Last Taken Unknown] blood sugar diagnostic (Contour Next Test Strips) #200 ea 09/29/23 [Rx Last Taken Unknown] hydroxyzine HCl 25 mg tablet 25 mg PO TID PRN anxiety #90 tabs 09/29/23 [Rx Last Taken Unknown] lisinopril 30 mg tablet 30 mg PO DAILY #90 tabs 09/29/23 [Rx Last Taken Unknown] prednisone 10 mg tablet 10 mg PO DAILY 09/29/23 [History Last Taken Unknown] sertraline 100 mg tablet 100 mg PO DAILY 10/14/23 [History Last Taken Unknown] Allergy/AdvReac Type Severity Reaction Status Date / Time azathioprine AdvReac Severe Vomiting Verified 09/29/23 17:10 Family History Sister Alcoholism Thyroid disorder Depression Mother Thyroid disorder Bleeding disorder Depression Hypertension High cholesterol Father Hypertension High cholesterol Surgical History No history of previous surgery Social History household members: none housing: apartment current occupational status: employed current occupation: [employer] pets and animals: Yes pets and animals: dog(s) sexually active: Yes Smoking Status: Never smoker second hand exposure: No alcohol intake: never substance use type: does not use diet: diabetic caffeine: Yes (1) Type: carbonated beverages what type of physical activity do you participate in: none dayday/cheondoism: Pentecost[employer]ism seatbelt use: always do you feel safe at home: Yes ROS ROS ED Constitutional Constitutional ED: Reports chills ENT ENT ED: Denies rhinorrhea or sore throat Cardiovascular Cardiovascular: Denies chest pain or palpitations Respiratory/Chest Respiratory/Chest: Denies cough or dyspnea Gastrointestinal Gastrointestinal: Reports diarrhea, nausea and vomiting; Denies abdominal pain Musculoskeletal Musculoskeletal: Denies back pain or extremity pain Integumentary Reports Abrasions; Denies rash Neurologic Neurologic: Reports headache(s) and weakness Allergic/Immunologic Allergic/Immunologic ED: Denies lip swelling or urticaria EXAM Physical Exam Const Vital Signs: 10/14/23 18:06 10/14/23 18:10 10/14/23 19:53 Temperature 97 F L Temperature Source Temporal Pulse Rate 112 H 116 H Respiratory Rate 22 H 22 H Respiratory Pattern Tachypnea Blood Pressure 150/104 H 178/102 H Blood Pressure Mean 119 127 Pulse Ox 100 98 Oxygen Delivery Method Room Air Room Air 10/14/23 21:00 10/14/23 21:00 Temperature Temperature Source Pulse Rate 130 H 130 H Respiratory Rate 25 H 25 H Respiratory Pattern Blood Pressure 185/111 H 185/111 H Blood Pressure Mean 135 135 Pulse Ox 93 93 Oxygen Delivery Method Room Air Positive well nourished and well developed General Appearance ED: well developed HEENT Reports dry mucous membranes HEENT Narrative: 3 cm scalp laceration to the right parietal scalp. No active bleeding at this time. Mouth ED: Yes dry mucous membranes Mouth: dry mucous membranes Eyes EOMs intact bilaterally Neck no lymphadenopathy Neck Narrative: No C-spine tenderness. Chest Wall palpation of chest normal Chest Narrative: Ecchymosis noted over the left upper chest/left shoulder. Resp Resp Narrative: Patient slightly tachypneic. Clear breath sounds bilaterally. Cardio Rate: tachycardic GI GI Narrative: Abdomen soft with no focal tenderness. Hypoactive but present bowel sounds noted. Extremity Extremity Narrative: Ecchymosis noted over the left shoulder as well as the left elbow. Good range of motion of extremities. Neuro Neuro Narrative: Patient anxious but is oriented. Moves all 4 extremities. Skin Skin Narrative: Ecchymosis to left upper extremity as noted above. Scalp laceration as noted above. MDM MDM MDM Narrative Medical decision making narrative: Patient vomiting on initial exam. He is given a dose of Reglan, Benadryl, as well as Ativan. IV fluids initiated. Labwork obtained to evaluate for leukocytosis, anemia, and electrolyte derangement. EKG obtained to evaluate for cardiac arrhythmia/ischemia. Urinalysis obtained to evaluate for infection/hematuria. CT scan of the head obtained to evaluate for fracture, bleed. X-rays of the chest, left shoulder, and left elbow obtained to evaluate for infiltrate, injury, fracture. History & Record Review Discussion w/independent historian: EMS personnel, Patient and Family Lab Data Attestation: I reviewed the patient's lab results. Labs: Laboratory Results - last 24 hr 10/14/23 10/14/23 10/14/23 17:55 18:10 18:12 WBC 11.0 RBC 5.19 Hgb 17.1 H Hct 49.3 MCV 95.0 H MCH 32.9 H MCHC 34.7 RDW Std Deviation 49.1 H RDW Coeff of Keli 14.0 Plt Count 207 MPV 9.9 Immature Gran % (Auto) 0.600 Neut % (Auto) 85.0 H Lymph % (Auto) 2.8 L [place] % (Auto) 11.2 H Eos % (Auto) 0.0 Baso % (Auto) 0.4 Absolute Neuts (auto) 9.4 H Absolute Lymphs (auto) 0.31 L Nucleated RBC % 0 Differential Comment SEE COMMENT Toxic Granulation 1+ Platelet Estimate ADEQUATE Anisocytosis RARE Macrocytosis RARE Sodium 134 L Potassium 3.8 Chloride 93 L Carbon Dioxide 22.0 Anion Gap 19 H BUN 14 Creatinine 1.77 H Estim Creat Clear Calc 62.11 Est GFR (MDRD) Af Amer 56 L Est GFR (MDRD) Non-Af 46 L BUN/Creatinine Ratio 7.9 L Glucose 68 L Calcium 10.3 H Total Bilirubin 1.20 H Direct Bilirubin 0.41 H AST 327 H ALT 156 H Alkaline Phosphatase 155 H Total Protein 8.5 H Albumin 4.5 Globulin 4.0 Urine Color Urine Clarity Urine pH Ur Specific [place] Urine Protein Urine Glucose (UA) Urine Ketones Urine Occult Blood Urine Nitrite Urine Bilirubin Urine Urobilinogen Ur Leukocyte Esterase Urine RBC Urine WBC Ur Squamous Epith Cells Urine Bacteria Urine Mucus Urine Opiates Screen Urine Methadone Screen Ur Barbiturates Screen Ur Phencyclidine Scrn Ur Amphetamines Screen MDMA (Ecstasy) Screen U Benzodiazepines Scrn Urine Cocaine Screen U Cannabinoids Screen Ur Drug Screen Comment Ethyl Alcohol < 3.0 POC Glucose 93 10/14/23 10/14/23 10/14/23 20:11 20:37 20:48 WBC RBC Hgb Hct MCV MCH MCHC RDW Std Deviation RDW Coeff of Keli Plt Count MPV Immature Gran % (Auto) Neut % (Auto) Lymph % (Auto) [place] % (Auto) Eos % (Auto) Baso % (Auto) Absolute Neuts (auto) Absolute Lymphs (auto) Nucleated RBC % Differential Comment Toxic Granulation Platelet Estimate Anisocytosis Macrocytosis Sodium Potassium Chloride Carbon Dioxide Anion Gap BUN Creatinine Estim Creat Clear Calc Est GFR (MDRD) Af Amer Est GFR (MDRD) Non-Af BUN/Creatinine Ratio Glucose Calcium Total Bilirubin Direct Bilirubin AST ALT Alkaline Phosphatase Total Protein Albumin Globulin Urine Color Yellow Urine Clarity Clear Urine pH 6.5 Ur Specific [place] 1.020 Urine Protein 500 H Urine Glucose (UA) Normal Urine Ketones 15 H Urine Occult Blood 250 H Urine Nitrite Negative Urine Bilirubin Negative Urine Urobilinogen 1 H Ur Leukocyte Esterase Negative Urine RBC 0-5 SEEN Urine WBC 0-5 SEEN Ur Squamous Epith Cells 0 SEEN Urine Bacteria 0 SEEN Urine Mucus 0 SEEN Urine Opiates Screen NEGATIVE Urine Methadone Screen NEGATIVE Ur Barbiturates Screen NEGATIVE Ur Phencyclidine Scrn NEGATIVE Ur Amphetamines Screen NEGATIVE MDMA (Ecstasy) Screen NEGATIVE U Benzodiazepines Scrn NEGATIVE Urine Cocaine Screen NEGATIVE U Cannabinoids Screen NEGATIVE Ur Drug Screen Comment Ethyl Alcohol POC Glucose 99 81 10/14/23 20:54 WBC RBC Hgb Hct MCV MCH MCHC RDW Std Deviation RDW Coeff of Keli Plt Count MPV Immature Gran % (Auto) Neut % (Auto) Lymph % (Auto) [place] % (Auto) Eos % (Auto) Baso % (Auto) Absolute Neuts (auto) Absolute Lymphs (auto) Nucleated RBC % Differential Comment Toxic Granulation Platelet Estimate Anisocytosis Macrocytosis Sodium Potassium Chloride Carbon Dioxide Anion Gap BUN Creatinine Estim Creat Clear Calc Est GFR (MDRD) Af Amer Est GFR (MDRD) Non-Af BUN/Creatinine Ratio Glucose Calcium Total Bilirubin Direct Bilirubin AST ALT Alkaline Phosphatase Total Protein Albumin Globulin Urine Color Urine Clarity Urine pH Ur Specific [place] Urine Protein Urine Glucose (UA) Urine Ketones Urine Occult Blood Urine Nitrite Urine Bilirubin Urine Urobilinogen Ur Leukocyte Esterase Urine RBC Urine WBC Ur Squamous Epith Cells Urine Bacteria Urine Mucus Urine Opiates Screen Urine Methadone Screen Ur Barbiturates Screen Ur Phencyclidine Scrn Ur Amphetamines Screen MDMA (Ecstasy) Screen U Benzodiazepines Scrn Urine Cocaine Screen U Cannabinoids Screen Ur Drug Screen Comment Ethyl Alcohol POC Glucose 87 Radiography Chest X-Ray - ED: 1 View, Read by ED Physician, Normal, Heart, Lungs and Mediastinum Diagnostic Testing: Clinical Impression(s) from Imaging Studies Brain CT 10/14/23 18:31 IMPRESSION: No acute intracranial pathology of the brain. Electronically Signed: Lenny Walker DO at 19:30 EST Reading Location ID and State: [facility] / [place] Tel [phone], Service support , Chest X-Ray 10/14/23 19:15 IMPRESSION: No radiographic evidence of acute cardiopulmonary disease. Electronically Signed: Lenny Walker DO at 19:30 EST , Elbow X-Ray 10/14/23 19:15 IMPRESSION: Negative. Electronically Signed: Lenny Walker DO at 19:31 EST , Shoulder X-Ray 10/14/23 19:15 IMPRESSION: Negative. Electronically Signed: Lenny Walker DO at 19:33 EST Reading Location ID and State: [address] [place] [address] Tel [phone], Service support , EKG Initial EKG: Attestation: I personally reviewed and interpreted this EKG as follows: Interpretation: Sinus Tachycardia (Sinus tachycardia at 112. No acute ischemia.) Treatment and Re-Evaluation :: Patient's blood sugar on arrival to the emergency room was in the high 90s. Patient was sent for imaging. On return from imaging patient's blood sugar was rechecked and is in the 30s. He is given an amp of D50 and started on D5 normal saline at 100. CT scan of the head reveals no acute findings. Chest x-ray per my interpretation reveals no acute findings. Radiology interpretation reviewed and agrees. X-rays of the left elbow and left shoulder are reviewed by myself with no obvious evidence of fracture or dislocation. Radiology interpretation of both studies is reviewed and agrees. CBC reveals a normal white count 11.0. Hemoglobin is concentrated at 17.1. Left shift is noted with 85% neutrophils. Chemistry studies reveal an elevated anion gap at 19. His BUN is 14 and his creatinine is 1.77. Previous creatinine is 1.05 in January 2023. Glucose on blood work was 68, however this blood was collected at the time of IV initiation by paramedics. Total bilirubin is 1.20, direct bilirubin 0.41, AST 327, ALT 156, alk phos 155. These numbers are consistent with his prior values and not worsened. He does have a known history of alcoholic hepatitis. His EtOH is less than 3. Swab for COVID, influenza, and RSV is negative. Patient has been asked several times when he had his last alcoholic drink. He states it has been several months since he is he has had any alcohol. He states he really has not been drinking fluids at all over the past 3 days given his vomiting and diarrhea. He does note that multiple coworkers were ill with similar symptoms. Patient's right scalp laceration was anesthetized with 3 cc of 1% lidocaine with epinephrine. Wound is cleansed and irrigated. 3 graciela were placed across the wound. Patient remains tachycardic with heart rate between 110 and 120. He continues to have tremors. He is given another dose of Ativan. I will speak with hospitalist regarding admission. I will add a CK level at this time as we are unsure how long the patient may have laid on the floor. It is noted that the patient's insulin pump was removed on his arrival to the emergency room. Addendum: I was notified by nursing staff that the patient's temperature is now 100.2. Given his liver disease I will give him ibuprofen instead of Tylenol. Blood cultures will also be ordered. The patient's blood sugar has remained in the high 80s to low 90s over the last hour and a half with D5 running at 100 mL/h. Discharge Plan Dx/Rx/DC Orders Clinical Impression: Acute kidney injury, Gastroenteritis, Hypoglycemia, Laceration of scalp Disposition Disposition: Acute Care [facility]
[2023-10-14 20:54] LABS: Bacteria 0 SEEN /hpf (None Seen); Mucous, Urine 0 SEEN /hpf (<or=2+); Squamous Epithelial Cells - UA 0 SEEN /hpf (0-5)
[2023-10-14 21:13] LABS: Bedside Glucose 81 mg/dL (74-106)
[2023-10-14 21:13] LABS: Bedside Glucose 87 mg/dL (74-106)
[2023-10-14 21:13] LABS: Bedside Glucose 99 mg/dL (74-106)
[2023-10-14 21:17] LABS: Amphetamine Urine VISTA NEGATIVE (<1000 ng/mL); Barbiturate Urine VISTA NEGATIVE (< 200 ng/mL); Benzodiazepine Urine VISTA NEGATIVE (< 200 ng/mL); Cocaine Urine VISTA NEGATIVE (< 300 ng/mL); Ecstacy Urine VISTA NEGATIVE (< 500 ng/mL); Methadone Urine VISTA NEGATIVE (< 300 ng/mL); PCP Urine VISTA NEGATIVE (< 25 ng/mL); THC Urine VISTA NEGATIVE (< 50 ng/mL); Vista UDS pH Range 6
[2023-10-14 21:21] LABS: Color, Urine Yellow (Yellow); Glucose, Dipstick Normal (Normal); Ketone-Dipstick 15 mg/dl (Negative); Leukocyte Esterase-Dipstick Negative /ul (Negative); Nitrite-Dipstick Negative (Negative); Occult Blood-Urine 250 /ul (Negative); Protein-Dipstick 500 mg/dl (Negative); Urine Bilirubin Dipstick Negative (Negative); Urine Clarity Clear (Clear); Urine Urobilinogen 1 mg/dl (Normal); Urine pH 6.5 (5.0 - 8.0)
[2023-10-14 21:22] LABS: White Blood Cells 0-5 SEEN /hpf (0-5)
[2023-10-14 21:23] LABS: Red Blood Cells-Urine 0-5 SEEN /hpf (0-5)
[2023-10-14] MEDS: Lidocaine 1% /Epi 1:100 (20ml) 20 ML Vial INFILT (21:23)
--- NOTE | 2023-10-14 21:28 | US_ITS ---
INDICATION: transaminitis EXAMINATION: Ultrasound US Abdomen Limited (quadrant) TECHNIQUE: Nails scale and color doppler imaging was performed of the right upper quadrant. COMPARISON: FINDINGS: LIVER: There is fatty echotexture measuring 19.4 cm. No focal hepatic lesion. There is no free fluid. GALLBLADDER AND BILIARY TREE: No shadowing gallstone, pericholecystic fluid or gallbladder wall thickening is demonstrated. The proximal common bile duct measures 6.5 mm, which is borderline in size. Songraphic Gardiner''s sign: Negative. PANCREAS: No focal abnormality is demonstrated in the pancreas. No pancreatic ductal dilatation. RIGHT KIDNEY: 12.5 x 5.3 x 5.4 cm. The cortex is 12 mm. No hydronephrosis. No shadowing calculi. US/Abdomen Limited IMPRESSION: Enlarged fatty liver. Borderline common bile duct. Electronically Signed: Lenny Walker DO at 22:52 EST ,
--- NOTE | 2023-10-14 21:30 | CT_ITS ---
STUDY: CT ABDOMEN AND PELVIS WITHOUT CONTRAST REASON FOR EXAM: Male, 38 years old. abdominal pain RADIATION DOSAGE (If Supplied By Facility): CTDIvol = ( 6.99 ) mGy, DLP = ( 373.81 ) mGycm TECHNIQUE: Transaxial images were obtained from the dome of the diaphragm to the symphysis pubis without oral contrast, and without intravenous contrast. Sagittal and coronal images were reconstructed. Individualized dose optimization techniques were used for this CT. COMPARISON: None. FINDINGS: The visualized lung bases are unremarkable. The visualized portions of the heart are within normal limits. Fatty liver. Normal gallbladder and extrahepatic biliary system. Normal spleen. Normal pancreas. Normal bilateral adrenal glands. Normal right kidney. Normal left kidney. Normal visualized stomach. Normal small intestine. Normal colon. The appendix is visualized and appears normal. Normal abdominal aorta. Normal inferior vena cava. Normal retroperitoneum. Moderately distended urinary bladder. Normal abdominal wall. Normal osseous structures. CT/Abdomen/Pelvis without Cont IMPRESSION: Fatty liver. Moderately distended urinary bladder. Electronically Signed: Lenny Walker DO at 23:02 [facility] Reading Location ID and State: [facility] / [place] Tel [phone], Service support ,
[2023-10-14] MEDS: Ibuprofen 600 MG Tablet PO (21:33)
[2023-10-14 21:36] LABS: CPK Total, Creatine Kinase 3733 U/L (39-308)
[2023-10-14 22:05] LABS: Partial Thromboplast Time 23.7 Seconds (24.1-36.2)
[2023-10-14 22:06] LABS: Blood Gas Specimen Type VEN; O2 Delivery Device Not entered; SITE Not entered; VBG BASE EXCESS -1 mmol/L (-1.0-3.5); VBG Bicarbonate 22 mmol/L (22-26); VBG PO2 64 mmHg (25-40); VBG SO2 95 % (50-70); VBG TCO2 23 mmol/L (23-33); VBG pCO2 27.7 mmHg (41-51); VBG pH 7.51 (7.32-7.42)
[2023-10-14 22:08] LABS: Prothrombin Time (Protime)PT. 12.6 SECONDS (11.7-14.9)
--- NOTE | 2023-10-14 22:14 | HP.PCM.HOS_ITS ---
HPI - General General Date of Admission: 10/14/23 Date of Service: 10/14/23 Chief Complaint: Hypoglycemia HPI Narrative JOLIE BERNAL, is a 38 M who presented to the emergency department at [facility] on 10/14/2023 due to hypoglycemia and altered mental status. His mental status did eventually correct with IV fluids and correction of his blood sugar. The patient is a type I diabetic and on insulin pump at baseline. Over the last 4 days he has had nausea, vomiting, and diarrhea. He has not eaten anything in 4 days and had very minimal amounts to drink. He reported he was not able to keep anything down. Multiple people at work have been ill with various times starting this infection. He stated he really had not been out of bed much since he started to feel ill on Tuesday. He tried to go to work but left after only an hour. His , from whom he is currently , called him and noted that his speech was abnormal. She is a nurse practitioner a/c tech for the hospital. She went over his house and found him on the floor. Is unclear exactly how long he was down. His blood sugar was reportedly around 100 at that time but dropped to 64 so they gave him oral glucose and transported him. He has a history of alcoholism but has not had anything to drink in some time. He was vomiting on arrival. His blood sugars at the time of presentation emergency department were 90 and he was sent for imaging however on return from his imaging his blood sugars dropped into the 30s. He was given an amp of D50 and started on a D5 normal saline drip. Patient reports that he is currently not having any diarrhea as he has not been able to eat anything. He has been having myalgias, chills, fevers and generalized weakness in addition to the nausea, vomiting, and diarrhea. Vital signs on presentation showed temperature of 97, tachycardia with a heart rate of 112, blood pressure was 150/104, respiratory was 22 and oxygen saturation was 100% on room air. He did have a Tmax in the emergency department of 100.2. His CBC showed volume contraction with a hemoglobin of 17.1. But was otherwise unremarkable. Coags were normal. A VBG was obtained because his anion gap was elevated and his pH was found to be 7.51. His initial chemistries were very abnormal. Sodium was 134, anion gap was 19, serum bicarb was 22, creatinine was 1.77 with a BUN of 14, glucose was 68, calcium was 10.3, total bilirubin is 1.2, AST and ALT were elevated at 327 and 156 respectively. Alk phos was 155. CPK was obtained and found to be 3733. He had a recent hemoglobin C as an outpatient and it was found to be 7.6. COVID/flu/RSV were negative. Blood cultures were sent however suspicion is low for Bacteremia. Hi s lactic acid was normal. CT of the brain was unremarkable. Chest x-ray is unremarkable. Left elbow x-ray was unremarkable. Left shoulder x-ray was unremarkable. Abdominal ultrasound showed enlarged fatty liver with a borderline sized bile duct. CT of the abdomen pelvis showed fatty liver and a moderately distended urinary bladder. He was given IV fluids, dextrose, and antiemetics. Patient was admitted to the ICU for close monitoring of his insulin given the fact that he is a type I diab etic. [facility] Medical History Alcoholic hepatitis Anemia Anxiety Elevated bilirubin Fatty liver Hypertension Ocular myasthenia gravis Presence of insulin pump Tachycardia Type 1 diabetes mellitus URI (upper respiratory infection) Home Medications Insulin Pump 09/09/22 [History Last Taken Unknown] lancets (Accu-Chek Fastclix Lancet Drum) #200 ea 10/28/22 [Rx Last Taken Unknown] rosuvastatin 5 mg tablet 5 mg PO DAILY #90 tabs 03/28/23 [Rx Last Taken Unknown] calcium carbonate 600 mg-vitamin D3 10 mcg (400 unit) tablet 1 tab PO DAILY #60 tabs 06/07/23 [Rx Last Taken Unknown] Humalog U-100 Insulin 100 unit/mL subcutaneous solution (insulin lispro) 100 unit continuous subcutaneous infusion .continuous Check with primary doctor #90 mL 09/29/23 [Rx Last Taken Unknown] blood sugar diagnostic (Contour Next Test Strips) #200 ea 09/29/23 [Rx Last Taken Unknown] hydroxyzine HCl 25 mg tablet 25 mg PO TID PRN anxiety #90 tabs 09/29/23 [Rx Last Taken Unknown] lisinopril 30 mg tablet 30 mg PO DAILY #90 tabs 09/29/23 [Rx Last Taken Unknown] prednisone 10 mg tablet 10 mg PO DAILY 09/29/23 [History Last Taken Unknown] sertraline 100 mg tablet 100 mg PO DAILY 02/02/24 [History Last Taken Unknown] Allergy/AdvReac Type Severity Reaction Status Date / Time azathioprine AdvReac Severe Vomiting Verified 09/29/23 17:10 Family History Sister Alcoholism Thyroid disorder Depression Mother Thyroid disorder Bleeding disorder Depression Hypertension High cholesterol Father Hypertension High cholesterol Surgical History No history of previous surgery Social History household members: none housing: apartment current occupational status: employed current occupation: [employer] pets and animals: Yes pets and animals: dog(s) sexually active: Yes Smoking Status: Never smoker second hand exposure: No alcohol intake: never substance use type: does not use diet: diabetic caffeine: Yes (1) Type: carbonated beverages what type of physical activity do you participate in: none dayady/quaker: Yarsani seatbelt use: always do you feel safe at home: Yes ROS Constitutional Constitutional: Reports anorexia, chills, fatigue, fever(s), malaise and weakness; Denies change in weight, night sweats or other Eyes Eyes: Denies blurry vision, change in eye color, change in vision, discharge from eye(s), double vision, erythema, eye pain, loss of vision or other ENT HEENT: Denies abnormal hearing, dysphagia, ear pain, epistaxis, headache(s), hearing loss, nasal congestion, nasal discharge, post nasal drip, sinus pressure, sore throat or other Cardiovascular Cardiovascular: Reports lightheadedness; Denies chest pain, claudication, dyspnea on exertion, edema, orthopnea, palpitations, paroxysmal nocturnal dyspnea, rapid heart rate, syncope or other Respiratory/Chest Respiratory/Chest: Denies cough, dyspnea, excessive phlegm production, hemoptysis, productive cough, shortness of breath at rest, shortness of breath with exertion, wheezing or other Gastrointestinal Gastrointestinal: Reports diarrhea, nausea and vomiting; Denies abdominal pain, coffee ground emesis, constipation, dyspepsia, hematemesis, hematochezia, loose stools, melena or other Genitourinary Genitourinary: Reports other Details: Decreased urine output ; Denies burning urination, difficulty urinating, dysuria, hematuria, nocturia, urinary frequency, urinary hesitancy, urinary incontinence or urinary urgency Musculoskeletal Musculoskeletal: Reports joint pain and myalgias; Denies arthralgias, back pain, joint stiffness, joint swelling, neck pain or other Neurologic Neurologic: Reports confusion, headache(s) and tremor(s); Denies abnormal gait, abnormal speech, disequilibrium, dizziness, focal weakness, numbness, paresthesias, seizure-like activity, seizures, syncope, tingling or other Psychiatric Psychiatric: Reports depression; Denies anxiety, homicidal ideation, suicidal ideation or other Endocrine Endocrinology: Reports polydipsia; Denies change in body appearance, cold intolerance, excessive sweating, heat intolerance, polyuria or other Hematologic/Lymphatic Hematologic/Lymphatic: Denies anemia, easy bleeding, easy bruising, lymphadenopathy or other Allergic/Immunologic Allergic/Immunologic: Reports other Details: Chronic rash ; Denies rhinitis, hives, eczemia or asthma Vital Signs Vital Signs Vital Signs: 10/14/23 18:06 10/14/23 18:10 10/14/23 19:53 Temperature 97 F L Temperature Source Temporal Pulse Rate 112 H 116 H Respiratory Rate 22 H 22 H Respiratory Pattern Tachypnea Blood Pressure 150/104 H 178/102 H Blood Pressure Mean 119 127 Pulse Ox 100 98 Oxygen Delivery Method Room Air Room Air 10/14/23 21:00 10/14/23 21:00 10/14/23 21:26 Temperature 100.2 F H Temperature Source Oral Pulse Rate 130 H 130 H Respiratory Rate 25 H 25 H Respiratory Pattern Blood Pressure 185/111 H 185/111 H Blood Pressure Mean 135 135 Pulse Ox 93 93 Oxygen Delivery Method Room Air 10/14/23 22:10 Temperature Temperature Source Pulse Rate 116 H Respiratory Rate 27 H Respiratory Pattern Blood Pressure 173/111 H Blood Pressure Mean 131 Pulse Ox 97 Oxygen Delivery Method Room Air Weight Weight: 82.8 kg Body Mass Index (BMI) 24.7 Results Lab / Micro Data 10/14/23 17:55 10/14/23 17:55 Labs: Laboratory Results - last 24 hr 10/14/23 17:55: WBC 11.0, RBC 5.19, Hgb 17.1 H, Hct 49.3, MCV 95.0 H, MCH 32.9 H , MCHC 34.7, RDW Std Deviation 49.1 H, RDW Coeff of Keli 14.0, Plt Count 207, MPV 9.9, Immature Gran % (Auto) 0.600, Neut % (Auto) 85.0 H, Lymph % (Auto) 2.8 L, [place] % (Auto) 11.2 H, Eos % (Auto) 0.0, Baso % (Auto) 0.4, Absolute Neuts (auto) 9.4 H, Absolute Lymphs (auto) 0.31 L, Nucleated RBC % 0, Differential Comment SEE COMMENT, Toxic Granulation 1+, Platelet Estimate ADEQUATE, Anisocytosis RARE, Macrocytosis RARE, PT 12.6, INR 1.0, APTT 23.7 L, Sodium 134 L, Potassium 3.8, Chloride 93 L, Carbon Dioxide 22.0, Anion Gap 19 H, BUN 14, Creatinine 1.77 H, Estim Creat Clear Calc 62.11, Est GFR (MDRD) Af Amer 56 L, Est GFR (MDRD) Non-Af 46 L, BUN/Creatinine Ratio 7.9 L, Glucose 68 L, Calcium 10.3 H, Total Bilirubin 1.20 H, Direct Bilirubin 0.41 H, AST 327 H, ALT 156 H, Alkaline Phosphatase 155 H, Total Protein 8.5 H, Albumin 4.5, Globulin 4.0 10/14/23 18:10: POC Glucose 93 10/14/23 18:12: Total Creatine Kinase 3733 H, Ethyl Alcohol < 3.0 10/14/23 20:11: POC Glucose 99 10/14/23 20:37: POC Glucose 81 10/14/23 20:48: Urine Color Yellow, Urine Clarity Clear, Urine pH 6.5, Ur Specific [place] 1.020, Urine Protein 500 H, Urine Glucose (UA) Normal, Urine Ketones 15 H, Urine Occult Blood 250 H, Urine Nitrite Negative, Urine Bilirubin Negative, Urine Urobilinogen 1 H, Ur Leukocyte Esterase Negative, Urine RBC 0-5 SEEN, Urine WBC 0-5 SEEN, Ur Squamous Epith Cells 0 SEEN, Urine Bacteria 0 SEEN, Urine Mucus 0 SEEN, Urine Opiates Screen NEGATIVE, Urine Methadone Screen NEGATIVE, Ur Barbiturates Screen NEGATIVE, Ur Phencyclidine Scrn NEGATIVE, Ur Amphetamines Screen NEGATIVE, MDMA (Ecstasy) Screen NEGATIVE, U Benzodiazepines Scrn NEGATIVE, Urine Cocaine Screen NEGATIVE, U Cannabinoids Screen NEGATIVE, Ur Drug Screen Comment 02/02/24 20:54: POC Glucose 87 Micro: Microbiology 10/14/23 18:38 Mucosa - Nose SARS-CoV-2, Influenza & RSV (PCR) - Final ABG Data ABG results: ABG 10/14/23 22:03 Specimen Type ROM Sample Site Not entered VBG pH 7.51 H VBG pO2 64 H VBG HCO3 22 VBG Total CO2 23 VBG O2 Sat (Calc) 95 H VBG Base Excess -1 POC Mix VBG pCO2 Pt Tmp 27.7 L O2 Delivery Device Not entered Imaging Radiology Impression Brain CT 10/14/23 18:31 IMPRESSION: No acute intracranial pathology of the brain. Electronically Signed: Lenny Walker DO at 19:30 EST , Chest X-Ray 10/14/23 19:15 IMPRESSION: No radiographic evidence of acute cardiopulmonary disease. Electronically Signed: Lenny Walker DO at 19:30 EST , Elbow X-Ray 10/14/23 19:15 IMPRESSION: Negative. Electronically Signed: Lenny Walker DO at 19:31 EST , Shoulder X-Ray 10/14/23 19:15 IMPRESSION: Negative. Electronically Signed: Lenny Walker DO at 19:33 EST , Assessment & Plan Assessment/Plan (1) Laceration of scalp: (2) Hypoglycemia: (3) Gastroenteritis: (4) Acute kidney injury: (5) Tachycardia: (6) Type 1 diabetes mellitus: QUALIFIERS: Diabetes mellitus complication status: with hyperglycemia Qualified Code(s): E10.65 - Type 1 diabetes mellitus with hyperglycemia (7) Presence of insulin pump: (8) Transaminitis: (9) Hyperbilirubinemia: PLAN: Plan Hypoglycemia and a type I diabetic -Patient wears an insulin pump at baseline however has not been eating or drinking -Did decrease his basal dose at home independently but still hypoglycemic -Hold insulin pump -Start insulin drip at 0.05 and D5W and adjust accordingly until we are able to get him off the insulin drip in the IV fluids to maintain homeostasis with either subcu insulin or restarting his insulin drip -Every hour blood sugars -Suspect decreased p.o. intake as well as possible decreased ability to perform gluconeogenesis is contributing Acute gastroenteritis -Check enteric pane -check stool for C. difficile -IV fluids next-antiemetics -Check acute hepatitis panel JANE -Baseline serum creatinine appears to run between 1.0 and 1.1 -1.77 on admission -Aggressive IV fluids with normal saline at 150 cc/h and D5 normal saline at 100 cc/h for now -Will transition from D5 normal once able to using only normal saline and increase rate to 200 to 250 cc/h once off D5 -Hold home lisinopril -Avoid nephrotoxins -Repeat lab pending and will repeat again in a.m. Rhabdomyolysis -Patient does not currently meet criteria for utilization of urine alkalinization -Aggressive IV fluids with total rate at 250 cc/h right now -Will eventually transition to normal saline at 250 cc/h once able to get off D5 -Check serial CPKs -Monitor renal function closely Transaminitis/hyperbilirubinemia -AST is likely elevated dramatically related to his CPK elevation however he does have transaminitis -Patient has not been drinking alcohol -Suspect viral etiology -Hepatitis panel is pending -Tylenol level was unremarkable Tachycardia -Related to the above -Should improve with IV fluids Scalp laceration/back skin tear/diffuse ecchymosis -Suspect all related to fall -Monitor -Imaging is unremarkable for any acute fractures -PT/OT consultation DM-1 -Hold insulin pump -Treatment as above Hypertension -Hold home lisinopril -Will use hydralazine IV every 6 hours for systolic pressure greater than 140 and transition back to orals once able Hyperlipidemia -Continue home rosuvastatin 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 as well as history of alcohol use -Consider outpatient GI after discharge 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 -Has been treated with prednisone to mean which was of benefit but caused a side effect of muscle spasms and was discontinued -Was on azithromycin-but caused vomiting -CellCept was not of benefit -Manifestations of his myasthenia gravis manifest with ptosis and diplopia -Continue prednisone 10 mg daily--> if patient Develops any signs of decompensation may need to increase steroids Pityriasis rosea -Rash is worsened currently likely related to his above issues -Monitor -Often treated with prednisone so we will continue home prednisone for now -Does not seem to be bothersome at this time Anxiety/depression -Continue home sertraline History of alcohol abuse -Currently in remission DVT prophylaxis -Subcu heparin CODE STATUS -Full code Sepsis Attestation Sepsis Alert: Yes Sepsis Attestation: Sepsis Ruled Out Date exam was performed: 10/14/23 Time exam was performed: 22:30 Charges/Coding Visit Charges Inpatient E&M: 99086 Init Hosp L3
[2023-10-14 22:17] LABS: Acetaminophen (Tylenol) Level < 2.0 ug/mL (10.0-30.0)
[2023-10-14 22:20] LABS: Bedside Glucose 95 mg/dL (74-106)
[2023-10-14 22:22] LABS: Lactic Acid 1.1 mmol/L (0.4-1.9)
[2023-10-14 22:40] LABS: Bedside Glucose 119 mg/dL (74-106)
[2023-10-15] VITALS (27 sets, daily range): BP systolic 127–176; BP diastolic 79–110; PULSE 81–117; RESP 14–29; TEMP 36.2–37.2; O2SAT 96–100; BMI 24.7
[2023-10-15 00:24] LABS: Anion Gap 14 (5-15); BUN 16 mg/dL (7-18); BUN/Creat Ratio 12.2 RATIO (10-20); Calcium,Total 8.9 mg/dL (8.5-10.1); Chloride 97 mmol/L (98-107); Creatinine, Serum 1.31 mg/dL (0.70-1.30); EST Glomerular Filtration Rate 65 mL/min (>60); Est Glom Filt Rate - Afr Amer 79 mL/min (>60); Estimated Creatinine Clearance 83.92 ml/min; Glucose 169 mg/dL (74-106); Potassium 3.9 mmol/L (3.5-5.1); Sodium Level 133 mmol/L (136-145)
[2023-10-15 00:38] LABS: T4 Free Direct 0.88 ng/dL (0.76-1.46); Thyroid Stim Hormone (TSH) 1.42 uIU/mL (0.358-3.74)
[2023-10-15] MEDS: Insulin Lispro 100 UNIT in 0.9% Normal Saline (100mL Bag) 99 ML 4.09999999999999964 UNIT CONT INF (00:46)
[2023-10-15 00:54] LABS: Bedside Glucose 175 mg/dL (74-106)
[2023-10-15 01:12] LABS: CPK Total, Creatine Kinase 3470 U/L (39-308)
[2023-10-15] MEDS: 0.9% Normal Saline (1000mL) 1,000 ML 150 ML IV ×2 (01:22→07:30)
[2023-10-15 02:24] LABS: Bedside Glucose 114 mg/dL (74-106)
[2023-10-15] MEDS: Dextrose 50%-Water 25 GM/50 ML DISP.SYRIN IV (03:11)
[2023-10-15 03:20] LABS: Bedside Glucose 214 mg/dL (74-106)
[2023-10-15 03:35] LABS: Absolute Lymphocyte Count 0.42 X10^3/uL (0.83-4.51); Absolute Neutrophil Count 9.4 X10^3/uL (2.0-7.7); Basophil# 0.03 X10^3/uL; Basophil% 0.2 % (0-1); Eosinophil# 0.72 X10^3/uL; Eosinophils% 5.9 % (0-5); Hematocrit 41.6 % (40-54); Hemoglobin 14.6 g/dL (13.0-16.5); Lymphocyte # 0.42 X10^3/ul (0.83-4.51); Lymphocyte % 3.5 % (19-41); Mean Corp Hgb Conc 35.1 g/dL (32-36); Mean Corpuscular Hgb 33.5 pg (27.0-32.0); Mean Corpuscular Volume 95.4 fL (80-94); Mean Platelet Vol. 9.9 fl (6.2-12.0); Monocyte# 1.55 X10^3/uL; Monocyte% 12.7 % (0-10); NRBC Flagged by Analyzer 0 % (0-5); Neutrophil # 9.39 X10^3/uL (2.7-7.7); Neutrophil % 77.3 % (47-70); POSITIVE DIFFERENTIAL YES; POSITIVE MORPHOLOGY YES; Platelet Count 145 K/mm3 (150-450); RBC Distribution Width CV 14.2 % (11.6-14.6); RBC Distribution Width SD 50.1 fl (35.1-43.9); Red Blood Count 4.36 M/mm3 (4.6-6.2); White Blood Count 12.2 K/mm3 (4.4-11.0)
[2023-10-15 03:40] LABS: Differential Indicated SCAN CRITERIA MET
[2023-10-15 03:48] LABS: Bedside Glucose 143 mg/dL (74-106)
[2023-10-15 03:48] LABS: Bedside Glucose 32 mg/dL (74-106)
[2023-10-15 03:52] LABS: ALB/GLOB Ratio 1.1 RATIO (0.9-2.4); AST(SGOT) 256 U/L (15-37); Alanine Aminotransfer ALT/SGPT 116 U/L (16-61); Albumin, Serum 3.6 g/dL (3.2-5.0); Alkaline Phosphatase 116 U/L (45-117); Anion Gap 9 (5-15); BUN 17 mg/dL (7-18); BUN/Creat Ratio 12.2 RATIO (10-20); Calcium,Total 8.6 mg/dL (8.5-10.1); Chloride 94 mmol/L (98-107); Creatinine, Serum 1.39 mg/dL (0.70-1.30); EST Glomerular Filtration Rate 61 mL/min (>60); Est Glom Filt Rate - Afr Amer 74 mL/min (>60); Estimated Creatinine Clearance 79.09 ml/min; Globulin 3.3 g/dL (2.2-4.2); Glucose 154 mg/dL (74-106); Magnesium 2.6 mg/dL (1.6-2.6); Potassium 3.1 mmol/L (3.5-5.1); Protein, Total 6.9 g/dL (6.4-8.2); Sodium Level 128 mmol/L (136-145)
[2023-10-15 03:59] LABS: Differential Comment SCANNED
[2023-10-15] MEDS: hydrALAZINE 20 MG/ML Vial 10 MG IV (04:04)
[2023-10-15] MEDS: 0.9% Saline Lock 10 ML Syringe IV (04:05)
[2023-10-15 04:15] LABS: CPK Total, Creatine Kinase 3670 U/L (39-308)
[2023-10-15] MEDS: Potassium Chloride Oral Tablet 20 MEQ 40 MEQ PO (04:46)
[2023-10-15 05:17] LABS: Bedside Glucose 173 mg/dL (74-106)
[2023-10-15 05:17] LABS: Bedside Glucose 210 mg/dL (74-106)
[2023-10-15 06:27] LABS: Bedside Glucose 122 mg/dL (74-106)
[2023-10-15] MEDS: Labetalol (Prefilled) 20 MG/4 ML 40 MG IV ×2 (06:57→18:24)
[2023-10-15 07:29] LABS: Bedside Glucose 77 mg/dL (74-106)
[2023-10-15] MEDS: Dextrose 5%/0.9% NaCl 1,000 ML 100 ML IV (07:30)
[2023-10-15] MEDS: Sertraline 100 MG Tablet PO (07:31)
[2023-10-15] MEDS: predniSONE 10 MG Tablet PO (07:31)
[2023-10-15] MEDS: Heparin Injection (Vial) 5,000 UNIT/ML VIAL 5000 UNIT SC ×2 (07:32→22:16)
[2023-10-15 08:49] LABS: Bedside Glucose 215 mg/dL (74-106)
--- NOTE | 2023-10-15 08:53 | PCM.PN.HOSP ---
Subjective Subjective Feels better today, wants to try to advance his diet a little bit. Objective Data Objective Data Vital Signs: Vital Signs Temp Pulse Resp BP Pulse Ox O2 Del Method 98.8 F 87 18 153/82 H 98 Room Air 10/15/23 08:00 10/15/23 08:00 10/15/23 08:00 10/15/23 08:00 10/15/23 08:42 10/15/23 08:42 Oxygen Delivery Method Room Air Weight: 182 lb 5.156 oz Body Mass Index (BMI) 24.7 Intake & Output: Intake and Output for Last 24 Hours 10/14/23 10/15/23 10/16/23 03:59 03:59 03:59 Intake Total 1409.50 / 1409.53 1929.16 / 1929.16 Output Total 575 / 575 525 / 525 Balance 834.50 / 834.53 1404.16 / 1404.16 Lab / Micro Data 10/15/23 03:23 10/15/23 03:23 Labs: Laboratory Results - last 24 hr 10/14/23 17:55: WBC 11.0, RBC 5.19, Hgb 17.1 H, Hct 49.3, MCV 95.0 H, MCH 32.9 H, MCHC 34.7, RDW Std Deviation 49.1 H, RDW Coeff of Keli 14.0, Plt Count 207, MPV 9.9, Immature Gran % (Auto) 0.600, Neut % (Auto) 85.0 H, Lymph % (Auto) 2.8 L, [place] % (Auto) 11.2 H, Eos % (Auto) 0.0, Baso % (Auto) 0.4, Absolute Neuts (auto) 9.4 H, Absolute Lymphs (auto) 0.31 L, Nucleated RBC % 0, Differential Comment SEE COMMENT, Toxic Granulation 1+, Platelet Estimate ADEQUATE, Anisocytosis RARE, Macrocytosis RARE, PT 12.6, INR 1.0, APTT 23.7 L, Sodium 134 L, Potassium 3.8, Chloride 93 L, Carbon Dioxide 22.0, Anion Gap 19 H, BUN 14, Creatinine 1.77 H, Estim Creat Clear Calc 62.11, Est GFR (MDRD) Af Amer 56 L, Est GFR (MDRD) Non-Af 46 L, BUN/Creatinine Ratio 7.9 L, Glucose 68 L, Calcium 10.3 H, Total Bilirubin 1.20 H, Direct Bilirubin 0.41 H, AST 327 H, ALT 156 H, Alkaline Phosphatase 155 H, Total Protein 8.5 H, Albumin 4.5, Globulin 4.0, Acetaminophen < 2.0 L 10/14/23 18:10: POC Glucose 93 10/14/23 18:12: Total Creatine Kinase 3733 H, Ethyl Alcohol < 3.0 10/14/23 20:11: POC Glucose 99 10/14/23 20:37: POC Glucose 81 10/14/23 20:48: Urine Color Yellow, Urine Clarity Clear, Urine pH 6.5, Ur Specific [place] 1.020, Urine Protein 500 H, Urine Glucose (UA) Normal, Urine Ketones 15 H, Urine Occult Blood 250 H, Urine Nitrite Negative, Urine Bilirubin Negative, Urine Urobilinogen 1 H, Ur Leukocyte Esterase Negative, Urine RBC 0-5 SEEN, Urine WBC 0-5 SEEN, Ur Squamous Epith Cells 0 SEEN, Urine Bacteria 0 SEEN, Urine Mucus 0 SEEN, Urine Opiates Screen NEGATIVE, Urine Methadone Screen NEGATIVE, Ur Barbiturates Screen NEGATIVE, Ur Phencyclidine Scrn NEGATIVE, Ur Amphetamines Screen NEGATIVE, MDMA (Ecstasy) Screen NEGATIVE, U Benzodiazepines Scrn NEGATIVE, Urine Cocaine Screen NEGATIVE, U Cannabinoids Screen NEGATIVE, Ur Drug Screen Comment 10/14/23 20:54: POC Glucose 87 10/14/23 21:18: POC Glucose 95 10/14/23 21:42: Lactic Acid 1.1 10/14/23 22:18: POC Glucose 119 H 10/14/23 23:44: POC Glucose 175 H 10/15/23 00:00: Sodium 133 L, Potassium 3.9, Chloride 97 L, Carbon Dioxide 22.0, Anion Gap 14, BUN 16, Creatinine 1.31 H, Estim Creat Clear Calc 83.92, Est GFR (MDRD) Af Amer 79, Est GFR (MDRD) Non-Af 65, BUN/Creatinine Ratio 12.2, Glucose 169 H, Calcium 8.9, Total Creatine Kinase 3470 H, TSH 1.42, Free T4 0.88 10/15/23 01:09: POC Glucose 214 H 10/15/23 02:03: POC Glucose 114 H 10/15/23 03:05: POC Glucose 32 L* 10/15/23 03:23: WBC 12.2 H, RBC 4.36 L, Hgb 14.6, Hct 41.6, MCV 95.4 H, MCH 33.5 H, MCHC 35.1, RDW Std Deviation 50.1 H, RDW Coeff of Keli 14.2, Plt Count 145 L, MPV 9.9, Immature Gran % (Auto) 0.400, Neut % (Auto) 77.3 H, Lymph % (Auto) 3.5 L, [place] % (Auto) 12.7 H, Eos % (Auto) 5.9 H, Baso % (Auto) 0.2, Absolute Neuts (auto) 9.4 H, Absolute Lymphs (auto) 0.42 L, Nucleated RBC % 0, Differential Comment SCANNED, Diff Path Review January, Sodium 128 L, Potassium 3.1 L, Chloride 94 L, Carbon Dioxide 25.0, Anion Gap 9, BUN 17, Creatinine 1.39 H, Estim Creat Clear Calc 79.09, Est GFR (MDRD) Af Amer 74, Est GFR (MDRD) Non-Af 61, BUN/Creatinine Ratio 12.2, Glucose 154 H, Calcium 8.6, Phosphorus 3.0, Magnesium 2.6, Total Bilirubin 1.30 H, AST 256 H, ALT 116 H, Alkaline Phosphatase 116, Total Creatine Kinase 3670 H, Total Protein 6.9, Albumin 3.6, Globulin 3.3, Albumin/Globulin Ratio 1.1 10/15/23 03:25: POC Glucose 143 H 10/15/23 04:10: POC Glucose 173 H 10/15/23 04:53: POC Glucose 210 H 10/15/23 06:04: POC Glucose 122 H 10/15/23 07:03: POC Glucose 77 10/15/23 08:28: POC Glucose 215 H Micro: Microbiology 10/14/23 18:38 Mucosa - Nose SARS-CoV-2, Influenza & RSV (PCR) - Final ABG Data ABG results: ABG 10/14/23 22:03 Specimen Type ROM Sample Site Not entered VBG pH 7.51 H VBG pO2 64 H VBG HCO3 22 VBG Total CO2 23 VBG O2 Sat (Calc) 95 H VBG Base Excess -1 POC Mix VBG pCO2 Pt Tmp 27.7 L O2 Delivery Device Not entered Radiography Diagnostic Testing: Radiology Impression Brain CT 10/14/23 18:31 IMPRESSION: No acute intracranial pathology of the brain. Electronically Signed: Lenny Walker at 19:30 EST , Chest X-Ray 10/14/23 19:15 IMPRESSION: No radiographic evidence of acute cardiopulmonary disease. Electronically Signed: Lenny WalkerDO at 19:30 EST , Elbow X-Ray 10/14/23 19:15 IMPRESSION: Negative. Electronically Signed: Lenny WalkerDO at 19:31 EST , Shoulder X-Ray 10/14/23 19:15 IMPRESSION: Negative. Electronically Signed: Lenny WalkerDO at 19:33 EST , Abdomen Ultrasound 10/14/23 21:28 IMPRESSION: Enlarged fatty liver. Borderline common bile duct. Electronically Signed: Lenny Walker DO at 22:52 EST , Abdomen/Pelvis CT 10/14/23 21:30 IMPRESSION: Fatty liver. Moderately distended urinary bladder. Electronically Signed: Lennyadwoa Walker DO at 23:02 EST , Physical Exam Narrative General: Alert, Oriented x3, Cooperative, No apparent distress HEENT: Atraumatic, PERRLA, EOMI, Normocephalic Oral: Moist Mucosa Neck: Supple, No JVD Lungs: Clear to auscultation, Normal air movement, No rhonchi, No wheeze, No rales Cardiovascular: Tachycardic, Regular Rhythm, Normal S1, Normal S2, No murmurs Abdomen: Soft, Non Tender, Non-Distended, No Hepato-splenomegaly Extremities: No edema, Capillary Refill Less than 3 Seconds Skin: No rashes, No breakdown Musculoskeletal: No Tenderness to Palpation of Joints or Extremities Neurological: No focal neurological deficits, Motor Exam 5/5 strength throughout, Sensory exam intact to light touch and pain Psych/Mental Status: Normal Affect, Appropriate Assessment & Plan Assessment/Plan (1) Laceration of scalp: (2) Hypoglycemia: (3) Gastroenteritis: (4) Acute kidney injury: (5) Tachycardia: (6) Type 1 diabetes mellitus: QUALIFIERS: Diabetes mellitus complication status: with hyperglycemia Qualified Code(s): E10.65 - Type 1 diabetes mellitus with hyperglycemia (7) Presence of insulin pump: (8) Transaminitis: (9) Hyperbilirubinemia: PLAN: Plan 1. Hypoglycemia in the setting of being a type I diabetic secondary to dehydration from acute gastroenteritis/JANE/With rhabdomyolysis ? Slowly advance his diet ? Once he is able to take adequate p.o. can discontinue his D5 NS ? Continue with insulin drip at this time ? Creatinine is improving, continue to monitor 2. HTN/HLD ? Will hold his lisinopril secondary to his renal function ? Will monitor his blood pressures make adjustments as necessary ? Continue with his Crestor 3. Transaminitis with hyperbilirubinemia ? Likely relation to rhabdomyolysis with dehydration and JANE ? Also check a hepatitis panel as his Tylenol level was unremarkable and he denies drinking alcohol, his alcoholism is in remission 4. Ocular myasthenia gravis/pityriasis rosea ? Continue with steroids ? His pityriasis seems little bit more prominent likely from his above problems 5. Anxiety/depression ? Stable ? Continue with Zoloft DVT: Heparin Charges/Coding Visit Charges Inpatient E&M: 58165 Subs Hosp L2
[2023-10-15 09:34] LABS: Bedside Glucose 279 mg/dL (74-106)
[2023-10-15 10:31] LABS: Bedside Glucose 275 mg/dL (74-106)
[2023-10-15 11:27] LABS: Bedside Glucose 168 mg/dL (74-106)
--- NOTE | 2023-10-15 11:30 | CASEMGMT ---
FRANCISCA AUSTIN Assessment: Face to Face with pt for initial transition planning/care coordination assessment. RN NORMAN introduced self and role at [facility], pt voices understanding and consents to assessment. Pt is A&O x4 and answers all questions appropriately at this time. Pt visibly shaking through assessment. Pt sitting up in bed eating lunch. Care providers, pharmacy, and demographics verified/updated. Admitting Dx: severe hypoglycemia PCP:Concha Specialists:marlee Garza neuro Preferred [facility]acy: [facility] Insurance: [employer] Prescription Benefit: yes LNOK: Leelee Uriarte, - pt reports Living Arrangements: Pt lives alone in a ground level apt with 2 steps to enter. Pt reports he is I in ADL's and denies concerns at home. Transportation: Pt drives self and denies concerns with transportation. DME:insulin pump, BGM with sufficient strips and lancets. Has a CGM but does not use. HHC/SNF: Denies hx of Pt states no concerns with going home at time of dc. Pt states no further concerns/needs. CM to follow. Advised pt to ask CM if any further question/concerns/needs arise, voices understanding. Pt Goal: Home Plan: Home
[2023-10-15 12:04] LABS: CPK Total, Creatine Kinase 3944 U/L (39-308)
[2023-10-15 12:34] LABS: Bedside Glucose 251 mg/dL (74-106)
[2023-10-15] MEDS: 0.9% Normal Saline (1000mL) 1,000 ML 250 ML IV ×3 (13:42→22:16)
[2023-10-15 14:21] LABS: Bedside Glucose 167 mg/dL (74-106)
[2023-10-15 15:28] LABS: Bedside Glucose 87 mg/dL (74-106)
[2023-10-15 16:20] LABS: Bedside Glucose 188 mg/dL (74-106)
[2023-10-15] MEDS: Insulin Glargine-YFGN 100 UNIT/ML Pen 10 UNIT SC (16:53)
[2023-10-15 17:01] LABS: Bedside Glucose 178 mg/dL (74-106)
[2023-10-15 17:13] LABS: Bedside Glucose 36 mg/dL (74-106)
[2023-10-15 17:13] LABS: Bedside Glucose 167 mg/dL (74-106)
[2023-10-15] MEDS: Insulin Lispro 100 UNIT/ML INSULN.PEN SC ×2 (17:13→22:16)
[2023-10-15 18:40] LABS: CPK Total, Creatine Kinase 4045 U/L (39-308)
[2023-10-15 22:37] LABS: Bedside Glucose 269 mg/dL (74-106)
[2023-10-16] VITALS (25 sets, daily range): BP systolic 143–196; BP diastolic 94–119; PULSE 68–109; RESP 12–30; TEMP 36.4–37.4; O2SAT 84–99; BMI 25.9
[2023-10-16] MEDS: Phenobarbital 32.4 MG Tablet 97.2000000000000028 MG PO ×2 (00:18→03:28)
[2023-10-16] MEDS: Labetalol (Prefilled) 20 MG/4 ML 40 MG IV (00:20)
[2023-10-16] MEDS: 0.9% Saline Lock 10 ML Syringe IV ×2 (00:22→05:45)
[2023-10-16 00:52] LABS: Bedside Glucose 72 mg/dL (74-106)
[2023-10-16 01:41] LABS: Bedside Glucose 127 mg/dL (74-106)
[2023-10-16] MEDS: dexMEDEtomidine 400 MCG in 0.9% Normal Saline (100mL Bag) 96 ML 10.3000000000000007 MCG CONT INF (02:01)
[2023-10-16] MEDS: 0.9% Normal Saline (1000mL) 1,000 ML 250 ML IV ×4 (02:02→14:29)
--- NOTE | 2023-10-16 03:04 | NURSING ---
1999- this RN bedside w/ pt, assessment negative w/ exception to patient's tremors. Pt has known myasthenia gravis and states he always has tremors. Pt A+Ox3 at this time, no abnormal behavior observed. Pt able to follow commands. CAM negative, Rass 0. This RN charted accordingly 2129- this RN, Molly GRADY and Choco all observe pt fidgeting in room. Pt unable to stay still in bed. Continuously pulling ECG leads, pulse ox and BP cuff off. Pt unhooked IV tubing from IV site. This RN went in and addressed pt multiple times. Pt w/ more visible tremors, flushed appearance, diaphoresis and restless. Pt stating he is ok. Able to tell this RN where he is, who he is and the year. 2199- Pt attempting to get out of bed, visibly confused. Pt asked this RN are those stuffed animals when looking at the pedals on the bottom of hospital bed. Pt seems unsteady on his feet. This RN instructed him to stay in bed and use his call light. Pt incessantly fidgeting with ECG cables despite this RN fixing them. This RN asked pt about previous alcohol use at this time. Pt states I haven't drank in 2 years or 1.5 years whatever it says in there , this RN educated pt on sx's of alcohol withdrawal and noted that pt was having increased anxiety... Dr. Bahena notified regarding pt's hx and current symptoms Phenobarb taper and Q4H CIWAs ordered by Dr. Bahena d/t suspected alcohol withdrawal 34- pt calling this RN bedside, stating i feel like my sugar is dropping and is going to continue to drop . BGT 72 at this time, 3 OJ's given to pt, BGT recheck 127. Pt continuing to become increasingly restless and fidgety throughout the night. Dr. Bahena contacted by Maddy Arboleda RN to update him on pt condition, pt started on precedex per Dr. Bahena 0335- pt given 6mg of ativan d/t insistent restless/ attempting to get out of bed despite verbal redirection from this RN, Maddy Arboleda RN, Kusum Vargas RN and [place]. Pt tremors worsening, pt now hallucinating a this time and unable to be redirected. This RN and previously mentioned staff to bedside, pt tremors so sever Dr. Bahena paged to bedside. D/t pt's severe tremors and unwillingness to follow commands, ROTARY DRUM TANNER called @ 0345 for additional hands. 0400- Pt restrained at wrists and ankles, not following commands and severely agitated, at this time Dr. Bahena gave this RN a verbal order for 20mg IM Geodon, pharmacy called as this RN unable to override in omnicell. 0410- pt subdued and starting to calm down, Dr. Bahena stated to this RN to hold Geodon for now. Restraint paperwork signed.
[2023-10-16] MEDS: LORazepam 2 MG/ML Syringe 6 MG IV (03:39)
--- NOTE | 2023-10-16 04:17 | PCM.HOSP.N ---
Hospitalist Note Rapid Response was called at ~4:00 AM with patient having severe tremors and hallucinations in spite of previously being treated with initially with Phenobarbital and then had to be switched to IV Ativan plus maximum dose Precedex drip. He required soft four point restraints and then calmed down without further intervention around 4:06 AM. [employer] was updated with patient suspected to have gone into DT's.
[2023-10-16 04:45] LABS: Absolute Lymphocyte Count 0.95 X10^3/uL (0.83-4.51); Absolute Neutrophil Count 5.7 X10^3/uL (2.0-7.7); Basophil# 0.06 X10^3/uL; Basophil% 0.8 % (0-1); Eosinophil# 0.03 X10^3/uL; Eosinophils% 0.4 % (0-5); Hematocrit 34.9 % (40-54); Hemoglobin 11.9 g/dL (13.0-16.5); Lymphocyte # 0.95 X10^3/ul (0.83-4.51); Lymphocyte % 12.7 % (19-41); Mean Corp Hgb Conc 34.1 g/dL (32-36); Mean Corpuscular Hgb 33.4 pg (27.0-32.0); Mean Platelet Vol. 9.8 fl (6.2-12.0); Monocyte# 0.75 X10^3/uL; Monocyte% 10.1 % (0-10); NRBC Flagged by Analyzer 0 % (0-5); Neutrophil # 5.65 X10^3/uL (2.7-7.7); Neutrophil % 75.7 % (47-70); Platelet Count 111 K/mm3 (150-450); RBC Distribution Width CV 13.9 % (11.6-14.6); RBC Distribution Width SD 51.1 fl (35.1-43.9); Red Blood Count 3.56 M/mm3 (4.6-6.2); White Blood Count 7.5 K/mm3 (4.4-11.0)
[2023-10-16 05:11] LABS: ALB/GLOB Ratio 0.9 RATIO (0.9-2.4); AST(SGOT) 230 U/L (15-37); Alanine Aminotransfer ALT/SGPT 98 U/L (16-61); Albumin, Serum 2.8 g/dL (3.2-5.0); Alkaline Phosphatase 85 U/L (45-117); Anion Gap 5 (5-15); BUN 9 mg/dL (7-18); BUN/Creat Ratio 10.9 RATIO (10-20); Chloride 106 mmol/L (98-107); Creatinine, Serum 0.83 mg/dL (0.70-1.30); EST Glomerular Filtration Rate 111 mL/min (>60); Est Glom Filt Rate - Afr Amer 134 mL/min (>60); Estimated Creatinine Clearance 132.45 ml/min; Glucose 146 mg/dL (74-106); Potassium 4.2 mmol/L (3.5-5.1); Protein, Total 5.8 g/dL (6.4-8.2); Sodium Level 134 mmol/L (136-145)
[2023-10-16 05:15] LABS: Bedside Glucose 121 mg/dL (74-106)
[2023-10-16] MEDS: dexMEDEtomidine 400 MCG in 0.9% Normal Saline (100mL Bag) 96 ML 32.6000000000000014 MCG CONT INF (05:44)
[2023-10-16] MEDS: Etomidate 20 MG/10 ML Vial IV (08:18)
[2023-10-16] MEDS: Succinylcholine Chloride 200 MG/10 ML SYRINGE 100 MG IV (08:19)
[2023-10-16] MEDS: fentaNYL drip 100 ML 5 MCG CONT INF (08:20)
[2023-10-16] MEDS: Propofol 10MG/Ml 1,000 MG/100 ML Bottle 5.20000000000000018 MG CONT INF (08:20)
--- NOTE | 2023-10-16 08:40 | RAD_ITS ---
STUDY: X-RAY CHEST REASON FOR EXAM: Male, 38 years old. Intubation/0G TECHNIQUE: Single AP portable view of the chest. COMPARISON: October 14, 2023 FINDINGS: 1. Interval development of moderate bilateral pulmonary edema and consolidation consistent with ARDS/multifocal pneumonia. 2. A new endotracheal tube is present terminating 4.94 cm above martinez 3. A new feeding tube is present last seen in the proximal stomach 4. No pneumothorax is present 5. Stable mediastinum and osseous structures There is no demonstrated abnormality of the visualized soft tissue structures of the upper abdomen. RAD/Chest 1 View (Portable) IMPRESSION: Interval development of moderate bilateral pulmonary edema and consolidation consistent with ARDS/multifocal pneumonia. Electronically Signed: Bartolome Montoya MD at 9:59 EST ,
--- NOTE | 2023-10-16 09:08 | PN.HOSP_ITS ---
Subjective Subjective Agitated and appeared to be going into delirium tremens overnight and was started on Precedex which was maximized this morning. Was not communicative and he was in 4-point restraints and still fighting the restraints. The decision was made to intubate after discussing the case with his . Objective Data Objective Data Vital Signs: Vital Signs Temp Pulse Resp BP Pulse Ox O2 Del Method O2 Flow Rate 98.2 F 72 21 H 180/116 H 91 Nasal Cannula 3 10/16/23 04:00 10/16/23 07:00 10/16/23 07:00 10/16/23 07:00 10/16/23 07:00 10/16/23 07:00 10/16/23 07:00 Oxygen Flow Rate (L/min) 3 Oxygen Delivery Method Nasal Cannula Weight: 191 lb 9.307 oz Body Mass Index (BMI) 25.9 Intake & Output: Intake and Output for Last 24 Hours 10/15/23 10/16/23 10/17/23 03:59 03:59 03:59 Intake Total 1409.50 / 1409.53 6891.35 / 6897.88 1068.61 / 1068.61 Output Total 575 / 575 3650 / 3650 0 / 0 Balance 834.50 / 834.53 3241.35 / 3247.88 1068.61 / 1068.61 Medical Nutrition Assessment Dietitian: Malnutrition Criteria Met Start: 10/15/23 09:45 Freq: Status: Active Protocol: Document 10/15/23 09:45 SLA (Rec: 10/15/23 09:45 SLA Desktop) Nutrition Malnutrition Evidence of Malnutrition Exists Yes Malnutrition (severe): Acute Illness/Injury Evidenced By Suboptimal Energy Intake ( Severe),Weight Loss (Severe) Clinical Problem Acute Disease or Injury Related Malnutrition Etiology related to GI dysfunction Signs/Symptoms as evidenced by 1.7% unintended wt loss and po intake meeting <75% of 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 Problem Recommendation Dietitian Recommendations/Changes Will change to 2200 ronak No Added Salt diet Continue to monitor for changes in pt nutritional status Lab / Micro Data 10/16/23 04:37 10/16/23 04:37 Labs: Laboratory Results - last 24 hr 10/14/23 19:25: POC Glucose 36 L* 10/14/23 19:39: POC Glucose 167 H 10/15/23 09:13: POC Glucose 279 H 10/15/23 10:10: POC Glucose 275 H 10/15/23 11:07: POC Glucose 168 H 10/15/23 11:10: Total Creatine Kinase 3944 H 10/15/23 12:16: POC Glucose 251 H 10/15/23 14:01: POC Glucose 167 H 10/15/23 15:04: POC Glucose 87 10/15/23 16:02: POC Glucose 188 H 10/15/23 16:41: POC Glucose 178 H 10/15/23 18:00: Total Creatine Kinase 4045 H 10/15/23 22:14: POC Glucose 269 H 10/16/23 00:34: POC Glucose 72 L 10/16/23 01:22: POC Glucose 127 H 10/16/23 03:48: POC Glucose 121 H 10/16/23 04:37: WBC 7.5, RBC 3.56 L, Hgb 11.9 L, Hct 34.9 L, MCV 98.0 H, MCH 33.4 H, MCHC 34.1, RDW Std Deviation 51.1 H, RDW Coeff of Keli 13.9, Plt Count 111 L, MPV 9.8, Immature Gran % (Auto) 0.300, Neut % (Auto) 75.7 H, Lymph % (Auto) 12.7 L, [place] % (Auto) 10.1 H, Eos % (Auto) 0.4, Baso % (Auto) 0.8, A bsolute Neuts (auto) 5.7, Absolute Lymphs (auto) 0.95, Nucleated RBC % 0, Sodium 134 L, Potassium 4.2, Chloride 106, Carbon Dioxide 23.0, Anion Gap 5, BUN 9, Creatinine 0.83, Estim Creat Clear Calc 132.45, Est GFR (MDRD) Af Amer 134, Est GFR (MDRD) Non-Af 111, BUN/Creatinine Ratio 10.9, Glucose 146 H, Calcium 8.0 L, Total Bilirubin 1.20 H, AST 230 H, ALT 98 H, Alkaline Phosphatase 85, Total Protein 5.8 L, Albumin 2.8 L, Globulin 3.0, Albumin/Globulin Ratio 0.9 Micro: Microbiology 10/15/23 15:00 Stool Enteric Bacteriology - Final 10/15/23 13:35 Stool Clostridioides difficile (PCR) - Final 10/14/23 18:38 Mucosa - Nose SARS-CoV-2, Influenza & RSV (PCR) - Final Physical Exam Narrative General: Agitated and restless HEENT: Atraumatic, PERRLA, EOMI, Normocephalic Oral: Moist Mucosa Neck: Supple, No JVD Lungs: Diminished, Normal air movement, No rhonchi, No wheeze, No rales Cardiovascular: Regular rate, regular Rhythm, Normal S1, Normal S2, No murmurs Abdomen: Soft, Non Tender, Non-Distended, No Hepato-splenomegaly Extremities: No edema, Capillary Refill Less than 3 Seconds Skin: No rashes, No breakdown Musculoskeletal: No Tenderness to Palpation of Joints or Extremities Neurological: Will not follow commands Psych/Mental Status: Agitated Assessment & Plan Assessment/Plan (1) Laceration of scalp: (2) Hypoglycemia: (3) Gastroenteritis: (4) Acute kidney injury: (5) Tachycardia: (6) Type 1 diabetes mellitus: QUALIFIERS: Diabetes mellitus complication status: with hyperglycemia Qualified Code(s): E10.65 - Type 1 diabetes mellitus with hyperglycemia (7) Presence of insulin pump: (8) Transaminitis: (9) Hyperbilirubinemia: PLAN: Plan 1. Acute alcohol withdrawal with delirium tremens and possible seizures overnight/transaminitis with hyperbilirubinemia in the setting of rhabdomyolysis ? Was placed on a Precedex drip however this morning he was maximized and was unable to manage his secretions ? He was maintained on 4-point restraints but is still agitated ? Discussed with his to proceed with intubation ? His CPK continues to climb indicative of possible continued seizures subclinically, renal function and potassium are normal and he has been getting aggressive IV fluid hydration 2. Hypoglycemia in the setting of being a type I diabetic secondary to dehydration from acute gastroenteritis/JANE/With rhabdomyolysis ? Slowly advance his diet ? Once he is able to take adequate p.o. can discontinue his D5 NS ? Continue with insulin drip at this time ? Creatinine is improving, continue to monitor 3. HTN/HLD ? Will hold his lisinopril secondary to his renal function ? Will monitor his blood pressures make adjustments as necessary ? Continue with his Crestor 4. Ocular myasthenia gravis/pityriasis rosea ? Continue with steroids ? His pityriasis seems little bit more prominent likely from his above problems ? Now that he is unable to take his p.o. prednisone will transition him to hydrocortisone 50 mg IV 3 times daily 5. Anxiety/depression ? Stable ? Can hold his Zoloft DVT: Heparin Charges/Coding Visit Charges Inpatient E&M: 93763 Subs Hosp L2
[2023-10-16] MEDS: Midazolam 50 MG in 0.9% Normal Saline (100mL Bag) 90 ML CONT INF (09:28)
--- NOTE | 2023-10-16 09:36 | EX.PCM.CONCC ---
Assessment & Plan Assessment/Plan (1) Respiratory failure: PLAN: Plan #Acute hypoxemic respiratory failure #ETOH withdrawal syndrome/DTs #Acute encephalopathy #JANE #Rhabdomyolysis #Ketoacidosis- ?starvation vs euglycemic DKA #Hyponatremia #Elevated LFTs #DM1 -Cont MV; settings reviewed/adjusted; daily ABG/CXR -Cont sedation with 1* strategy Versed & propofol to treat underlying issues; +/- fentanyl -Emp Keppra; neurology consult and cEEG given cannot exclude underlying seizure activity -Cont IVF; pt also given dose Lasix for ?pulm edema although this may also be aspiration pneumonitis; sCr improved & excellent UOP noted; cont strict I/Os; trend CK until downtrending; replace lytes -Thiamine/folate/MVIs -Trend LFTs -Cont insulin; if difficult to manage go back to insulin drip for improved titration; goal ICU BG 140-180 mg/dL NPO Heparin, famotidine Guarded prognosis Would Tx for HLOC where patient can get EEG/cEEG. CCT: 60 in The entirety of this encounter was completed via telemedicine. HPI Consult Data Date of Consult: 10/16/23 HPI Narrative Reason for Consultation: Respiratory failure, suspected DTs HPI Narrative: 38 M PMH including but not limited to DM1 with insulin pump (removed in ED), ocular MG & ETOH abuse with Hx ETOH hepatitis who initially presented after being found confused and down on the floor for unknown amount of time by his after and who reported 3-4d Hx of minimal PO intake & persistent N/V. His mentation and hypoglycemia improved with supplemental fluids and glucose but BG again dropped into 30s so he was admitted to the ICU on D5 & insulin drip. Workup at that time who presented to the emergency department at [facility] on 10/14/2023 due to hypoglycemia and altered mental status. Given his history of alcoholism he was asked multiple times in the ED re: last drink but patient stated he had not had any ETOH drinks for some time. His ETOH level was neg in the ED. UA did show some ketones and he had a mild anion gap acidosis on admission labs. Additionally he was tachycardic, hypertensive and with T100.2. Total bilirubin was 1.2 & AST/ALT were elevated at 327 and 156 respectively. CPK was checked and noted to be 3733. COVID/flu/RSV were negative. Lactic acid was normal. CT of the brain was unremarkable. Chest x-ray was unremarkable. Abdominal ultrasound showed enlarged fatty liver with a borderline sized bile duct. CT of the abdomen pelvis showed fatty liver and a moderately distended urinary bladder. He had a scalp laceration which required 3 sutures in the ED. He initially improved and yesterday was able to tolerate some small PO intake but over night patient developed hallucinations, agitation, tachycardia & hypertensive urgency concerning for DTs. He was unable to be managed with IV Ativan and max Precedex and earlier this morning was intubated by the hospitalist for airway protection after which critical care consult was requested. Postintubation patient was also noted to be clamping down on ETT prompting hospitalist to order Nimbex gtt but this order has now been discontinued. On my exam patient is now intubated and now well sedated. He has excellent UOP while on IVF. Current drips/vent settings: Fent @ 100 Versed @ 1 NS @ 250 12 450 5 60 PFSH Medical History Alcoholic hepatitis Anemia Anxiety Elevated bilirubin Fatty liver Hypertension Ocular myasthenia gravis Presence of insulin pump Tachycardia Type 1 diabetes mellitus URI (upper respiratory infection) Home Medications Insulin Pump 09/09/22 [History Last Taken Unknown] lancets (Accu-Chek Fastclix Lancet Drum) #200 ea 10/28/22 [Rx Last Taken Unknown] rosuvastatin 5 mg tablet 5 mg PO DAILY #90 tabs 03/28/23 [Rx Last Taken Unknown] calcium carbonate 600 mg-vitamin D3 10 mcg (400 unit) tablet 1 tab PO DAILY #60 tabs 06/07/23 [Rx Last Taken Unknown] Humalog U-100 Insulin 100 unit/mL subcutaneous solution (insulin lispro) 100 unit continuous subcutaneous infusion .continuous Check with primary doctor #90 mL 09/29/23 [Rx Last Taken Unknown] blood sugar diagnostic (Contour Next Test Strips) #200 ea 09/29/23 [Rx Last Taken Unknown] hydroxyzine HCl 25 mg tablet 25 mg PO TID PRN anxiety #90 tabs 09/29/23 [Rx Last Taken Unknown] lisinopril 30 mg tablet 30 mg PO DAILY #90 tabs 09/29/23 [Rx Last Taken Unknown] prednisone 10 mg tablet 10 mg PO DAILY 09/29/23 [History Last Taken Unknown] sertraline 100 mg tablet 100 mg PO DAILY 10/14/23 [History Last Taken Unknown] Allergy/AdvReac Type Severity Reaction Status Date / Time azathioprine AdvReac Severe Vomiting Verified 09/29/23 17:10 Family History Sister Alcoholism Thyroid disorder Depression Mother Thyroid disorder Bleeding disorder Depression Hypertension High cholesterol Father Hypertension High cholesterol Surgical History No history of previous surgery Social History household members: none housing: apartment current occupational status: employed current occupation: [employer] 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: Congregational seatbelt use: always do you feel safe at home: Yes Physical Exam Narrative General: Well developed, intubated HEENT: anicteric Sclera; + ETT, nl nose; supple neck, no masses Cardiovascular: Regular Rate and Rhythm; No murmurs, rubs, gallops; no displaced PMI Respiratory: clear; no wheezes, or rhonchi Abdominal: Non-tender; Non distended; hypoBS x 4; No Hepatosplenomegaly Extremities: Warm, well perfused; No clubbing, cyanosis; capillary refill < 2 sec Neurological: sedated Medical Records Data Medical Nutrition Assessment Dietitian: Malnutrition Criteria Met Start: 10/15/23 09:45 Freq: Status: Active Protocol: Document 10/15/23 09:45 SLA (Rec: 10/15/23 09:45 SLA Desktop) Nutrition Malnutrition Evidence of Malnutrition Exists Yes Malnutrition (severe): Acute Illness/Injury Evidenced By Suboptimal Energy Intake ( Severe),Weight Loss (Severe) Clinical Problem Acute Disease or Injury Related Malnutrition Etiology related to GI dysfunction Signs/Symptoms as evidenced by 1.7% unintended wt loss and po intake meeting <75% 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 Problem Recommendation Dietitian Recommendations/Changes Will change to 2200 ronak No Added Salt diet Continue to monitor for changes in pt nutritional status Lab / Micro Data 10/16/23 04:37 10/16/23 04:37 Labs: Laboratory Results - last 24 hr 10/14/23 19:25: POC Glucose 36 L* 10/14/23 19:39: POC Glucose 167 H 10/15/23 10:10: POC Glucose 275 H 10/15/23 11:07: POC Glucose 168 H 10/15/23 11:10: Total Creatine Kinase 3944 H 10/15/23 12:16: POC Glucose 251 H 10/15/23 14:01: POC Glucose 167 H 10/15/23 15:04: POC Glucose 87 10/15/23 16:02: POC Glucose 188 H 10/15/23 16:41: POC Glucose 178 H 10/15/23 18:00: Total Creatine Kinase 4045 H 10/15/23 22:14: POC Glucose 269 H 10/16/23 00:34: POC Glucose 72 L 10/16/23 01:22: POC Glucose 127 H 10/16/23 03:48: POC Glucose 121 H 10/16/23 04:37: WBC 7.5, RBC 3.56 L, Hgb 11.9 L, Hct 34.9 L, MCV 98.0 H, MCH 33.4 H, MCHC 34.1, RDW Std Deviation 51.1 H, RDW Coeff of Keli 13.9, Plt Count 111 L, MPV 9.8, Immature Gran % (Auto) 0.300, Neut % (Auto) 75.7 H, Lymph % (Auto) 12.7 L, [place] % (Auto) 10.1 H, Eos % (Auto) 0.4, Baso % (Auto) 0.8, Absolute Neuts (auto) 5.7, Absolute Lymphs (auto) 0.95, Nucleated RBC % 0, Sodium 134 L, Potassium 4.2, Chloride 106, Carbon Dioxide 23.0, Anion Gap 5, BUN 9, Creatinine 0.83, Estim Creat Clear Calc 132.45, Est GFR (MDRD) Af Amer 134, Est GFR (MDRD) Non-Af 111, BUN/Creatinine Ratio 10.9, Glucose 146 H, Calcium 8.0 L, Total Bilirubin 1.20 H, AST 230 H, ALT 98 H, Alkaline Phosphatase 85, Total Protein 5.8 L, Albumin 2.8 L, Globulin 3.0, Albumin/Globulin Ratio 0.9 Micro: Microbiology 10/15/23 15:00 Stool Enteric Bacteriology - Final 10/15/23 13:35 Stool Clostridioides difficile (PCR) - Final
[2023-10-16] MEDS: Sertraline 100 MG Tablet PO (09:37)
[2023-10-16] MEDS: Heparin Injection (Vial) 5,000 UNIT/ML VIAL 5000 UNIT SC (09:37)
[2023-10-16] MEDS: predniSONE 10 MG Tablet PO (09:38)
--- NOTE | 2023-10-16 09:45 | PCM.OP.PRO ---
Procedure Report Date of Procedure: 10/16/23 Intubation Indication: Airway protection in the setting of alcohol withdrawal and possible seizure activity Consent was obtained from: The patient was placed in the appropriate sniffing position. Preoxygenated sedation via bag mask was provided for a minimum of 3 minutes. The patient had continuous cardiac as well as pulse oximetry monitoring during the procedure. Procedure sedation was provided by the administration of etomidate and succinylcholine. Direct laryngoscopy was then performed using a glide scope. A 7.5 mm endotracheal tube was visualized advancing between the cords to the level of 22 cm at the lip. The stylette was then removed and discarded. Tube placement was confirmed by fogging in the tube along with equal and bilateral breath sounds. Colorimetric change was visualized on the CO2 meter. The cuff was then inflated and the tube secured using a commercially available device. A good pulse oximetry waveform was seen on the monitor throughout the procedure. A portable chest x-ray has been ordered to confirm appropriate placement. The patient tolerated the procedure well. Procedures Pulmonary CF Procedures [id number]: [id number] Insert emergency airway
[2023-10-16 10:08] LABS: Allen Test Positive; Base Excess -7 mmol/L (-2 to +2); Bicarbonate 19.5 mmol/L (22-26); Blood Gas Specimen Type ART; Mode AC; O2 Delivery Device Adult Vent; PEEP 5; PO2 186 mmHG (75-100); RR 12; SITE L Radial; SO2 100 % (95-99); Total Carbon Dioxide 21 mmol/L; pH 7.32 (7.35-7.45)
[2023-10-16 11:07] LABS: HEPATITIS B SURFACE AG Negative (Negative); Hep C Antibodies Non Reactive (Non Reactive); Hepatitis A IgM Antibody Negative (Negative); Hepatitis B Core AB IgM Negative (Negative)
[2023-10-16] MEDS: Folic Acid 1 MG in 0.9% Normal Saline (50mL Bag) 50 ML 200 MG IV (11:26)
[2023-10-16] MEDS: Chlorhexidine 15 ML PO (11:26)
[2023-10-16] MEDS: Thiamine Hydrochloride 200 MG in 0.9% Normal Saline (50mL Bag) 50 ML IV (11:34)
[2023-10-16 11:47] LABS: Bedside Glucose 211 mg/dL (74-106)
[2023-10-16] MEDS: Piperacil/Tazobactam 3.375 GM in 0.9% Normal Saline (50mL MB+) 50 ML IV (12:05)
[2023-10-16] MEDS: Hydrocortisone Sod Succinate 100 MG/2 ML Vial 50 MG IV (12:06)
[2023-10-16 12:54] LABS: Anion Gap 6 (5-15); BUN 10 mg/dL (7-18); BUN/Creat Ratio 11.1 RATIO (10-20); CPK Total, Creatine Kinase 3847 U/L (39-308); Chloride 104 mmol/L (98-107); EST Glomerular Filtration Rate 100 mL/min (>60); Est Glom Filt Rate - Afr Amer 121 mL/min (>60); Estimated Creatinine Clearance 122.15 ml/min; Glucose 266 mg/dL (74-106); Potassium 4.5 mmol/L (3.5-5.1); Sodium Level 132 mmol/L (136-145)
[2023-10-16] MEDS: Propofol 10MG/Ml 1,000 MG/100 ML Bottle 10.4000000000000004 MG CONT INF (13:15)
[2023-10-16] MEDS: Insulin Lispro 100 UNIT/ML INSULN.PEN SC (15:55)
[2023-10-16 16:18] LABS: Bedside Glucose 258 mg/dL (74-106)
[2023-10-16] MEDS: Propofol 10MG/Ml 1,000 MG/100 ML Bottle 15.5999999999999996 MG CONT INF (16:41)
[2023-10-16] MEDS: Midazolam 50 MG in 0.9% Normal Saline (100mL Bag) 90 ML 16 MG CONT INF (16:53)
--- NOTE | 2023-10-16 17:43 | PCM.DC.SUM ---
Providers Date of Admission: 10/14/23 Primary Care Physician: Dr. David Kern MD Consultations 10/16/23 08:29 Consult: Judicial Law Clerk / Pulmonary Medicine Routine Consulting Provider: Intensivists/Pulmonary Med Reason for Consult: intubation EMERGENT Consult: No MD Notified: Yes Date Notified: 10/16/23 Time Notified: 08:29 Method of Notification: Answering Service Reason For Visit: SEVERE HYPOGLYCEMIA Diagnosis Discharge Diagnosis (1) Respiratory failure: Status: Acute Code(s): J96.90 - Respiratory failure, unspecified, unspecified whether with hypoxia or hypercapnia Medications at Discharge Home Medications Insulin Pump 09/09/22 lancets (Accu-Chek Fastclix Lancet Drum) #200 ea 10/28/22 rosuvastatin 5 mg tablet 5 mg PO DAILY #90 tabs 03/28/23 calcium carbonate 600 mg-vitamin D3 10 mcg (400 unit) tablet 1 tab PO DAILY #60 tabs 06/07/23 Humalog U-100 Insulin 100 unit/mL subcutaneous solution (insulin lispro) 100 unit continuous subcutaneous infusion .continuous Check with primary doctor #90 mL 09/29/23 blood sugar diagnostic (Contour Next Test Strips) #200 ea 09/29/23 hydroxyzine HCl 25 mg tablet 25 mg PO TID PRN anxiety #90 tabs 09/29/23 lisinopril 30 mg tablet 30 mg PO DAILY #90 tabs 09/29/23 prednisone 10 mg tablet 10 mg PO DAILY 09/29/23 sertraline 100 mg tablet 100 mg PO DAILY 10/14/23 Hospital Course Operations None Procedures Electroencephalogram and Intubation Summary of Care Provided Minutes Spent on Discharge: 45 Hospital Course: Per HPI: JOLIE BERNAL, is a 38 M who presented to the emergency department at [facility] on 10/14/2023 due to hypoglycemia and altered mental status. His mental status did eventually correct with IV fluids and correction of his blood sugar. The patient is a type I diabetic and on insulin pump at baseline. Over the last 4 days he has had nausea, vomiting, and diarrhea. He has not eaten anything in 4 days and had very minimal amounts to drink. He reported he was not able to keep anything down. Multiple people at work have been ill with various times starting this infection. He stated he really had not been out of bed much since he started to feel ill on Tuesday. He tried to go to work but left after only an hour. His , from whom he is currently , called him and noted that his speech was abnormal. She is a nurse practitioner professional architect for the hospital. She went over his house and found him on the floor. Is unclear exactly how long he was down. His blood sugar was reportedly around 100 at that time but dropped to 64 so they gave him oral glucose and transported him. He has a history of alcoholism but has not had anything to drink in some time. He was vomiting on arrival. His blood sugars at the time of presentation emergency department were 90 and he was sent for imaging however on return from his imaging his blood sugars dropped into the 30s. He was given an amp of D50 and started on a D5 normal saline drip. Patient reports that he is currently not having any diarrhea as he has not been able to eat anything. He has been having myalgias, chills, fevers and generalized weakness in addition to the nausea, vomiting, and diarrhea. Vital signs on presentation showed temperature of 97, tachycardia with a heart rate of 112, blood pressure was 150/104, respiratory was 22 and oxygen saturation was 100% on room air. He did have a Tmax in the emergency department of 100.2. His CBC showed volume contraction with a hemoglobin of 17.1. But was otherwise unremarkable. Coags were normal. A VBG was obtained because his anion gap was elevated and his pH was found to be 7.51. His initial chemistries were very abnormal. Sodium was 134, anion gap was 19, serum bicarb was 22, creatinine was 1.77 with a BUN of 14, glucose was 68, calcium was 10.3, total bilirubin is 1.2, AST and ALT were elevated at 327 and 156 respectively. Alk phos was 155. CPK was obtained and found to be 3733. He had a recent hemoglobin C as an outpatient and it was found to be 7.6. COVID/flu/RSV were negative. Blood cultures were sent however suspicion is low for Bacteremia. His lactic acid was normal. CT of the brain was unremarkable. Chest x-ray is unremarkable. Left elbow x-ray was unremarkable. Left shoulder x-ray was unremarkable. Abdominal ultrasound showed enlarged fatty liver with a borderline sized bile duct. CT of the abdomen pelvis showed fatty liver and a moderately distended urinary bladder. He was given IV fluids, dextrose, and antiemetics. Patient was admitted to the ICU for close monitoring of his insulin given the fact that he is a type I diabetic. Hospital Course: 1. Acute alcohol withdrawal with delirium tremens and possible seizures overnight/transaminitis with hyperbilirubinemia in the setting of rhabdomyolysis?38-year-old male presented to the hospital with acute hypoglycemia and dehydration from acute gastroenteritis in the setting of being a type I diabetic and initially he was placed D5 normal saline at 100 cc/h as well as 150 cc/h of normal saline for the rhabdo and the CPK today went down from last night of a peak of 4000-30 800. However overnight he became more agitated and he does have significant alcohol history and so was placed on a Precedex drip. This morning at around 8:00 he was noted to still be agitated while maximized Precedex drip, he was increasing oxygen requirements and nursing was concerned that he was not can be able to protect his airway with all of his secretions so we discussed the situation with his and we elected to proceed with rapid sequence intubation. The intubation itself was uneventful however then we had fair difficulty in controlling his agitation and he ultimately had to be placed on a propofol drip as well as a Versed drip and fentanyl drip. The insurance verification clerk was consulted and felt that since this facility does not have capabilities for a continuous EEG that we would be better served with transferring to a higher level of care. Prior to discharge he was also found to have spiked a temperature and this could be secondary to the ARDS and or aspiration event from earlier this morning with with his secretions prior to intubation, he may benefit from an LP at the tertiary center as his states that this is not his usual for alcohol withdrawal and also he is generally much more honest with healthcare professionals than he is with family and she felt that if he related that he was not drinking then he probably had not had a drink in a while and therefore she was concerned that something else could be going on as his sister is also an alcoholic with a history of epilepsy. He was given IV thiamine and IV folate when his behaviors started to indicate alcohol withdrawal. He was accepted to [facility] and was discharged this afternoon. 2. Hypoglycemia in the setting of type 1 diabetes secondary to dehydration from acute gastroenteritis/JANE?initially was placed on an insulin drip as well as D5 normal saline and then yesterday he was much more alert and so the insulin drip and D5 normal saline was discontinued and he was progressed on a diet and placed on subcu insulin orders however overnight he had significant downturn as related problem #1. Blood sugars today have been stable 3. 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 Since he was made n.p.o. and intubated I transitioned him to hydrocortisone 50 mg 3 times daily IV. 4. Hypertension, hyperlipidemia, anxiety, depression are chronic medical conditions which complicate his care. His home medications were continued where appropriate Physical Exam Const General Appearance: intubated and patient mechanically ventilated HEENT normocephalic Eyes PERRL and conjunctivae normal Neck supple and no JVD Resp normal respiratory effort, no retractions and no use of accessory muscles Auscultation: Negative for crackles, rales, rhonchi or wheezes Cardio regular rhythm, S1 normal heart sound, S2 normal heart sound and no murmurs Rate: tachycardic GI soft to palpation and non-distended; Negative for hepatosplenomegaly Extremity no clubbing, cyanosis or edema Skin no rashes or lesions noted Neuro Sensorium / Orientation: sedated on vent Psych Appearance: intubated Medical Records Data Medical Nutrition Assessment Dietitian: Malnutrition Criteria Met Start: 10/15/23 09:45 Freq: Status: Active Protocol: Document 10/15/23 09:45 SLA (Rec: 10/15/23 09:45 SLA Desktop) Nutrition Malnutrition Evidence of Malnutrition Exists Yes Malnutrition (severe): Acute Illness/Injury Evidenced By Suboptimal Energy Intake ( Severe),Weight Loss (Severe) Clinical Problem Acute Disease or Injury Related Malnutrition Etiology related to GI dysfunction Signs/Symptoms as evidenced by 1.7% unintended wt loss and po intake meeting <75% 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 Problem Recommendation Dietitian Recommendations/Changes Will change to 2200 ronak No Added Salt diet Continue to monitor for changes in pt nutritional status Weight / BMI Weight Weight: 191 lb 9.307 oz Body Mass Index (BMI) 25.9 ABG / Lab / Microbiology Data 10/16/23 04:37 10/16/23 12:10 Laboratory: Laboratory Results - last 24 hr 10/14/23 21:42: Hepatitis A IgM Ab Negative, Hep Bs Antigen Negative, Hep B Core IgM Ab Negative, Hepatitis C Ab (EIA) Non Reactive, Hep C Ab Comment Comment 10/15/23 18:00: Total Creatine Kinase 4045 H 10/15/23 22:14: POC Glucose 269 H 10/16/23 00:34: POC Glucose 72 L 10/16/23 01:22: POC Glucose 127 H 10/16/23 03:48: POC Glucose 121 H 10/16/23 04:37: WBC 7.5, RBC 3.56 L, Hgb 11.9 L, Hct 34.9 L, MCV 98.0 H, MCH 33.4 H, MCHC 34.1, RDW Std Deviation 51.1 H, RDW Coeff of Keli 13.9, Plt Count 111 L, MPV 9.8, Immature Gran % (Auto) 0.300, Neut % (Auto) 75.7 H, Lymph % (Auto) 12.7 L, [place] % (Auto) 10.1 H, Eos % (Auto) 0.4, Baso % (Auto) 0.8, Absolute Neuts (auto) 5.7, Absolute Lymphs (auto) 0.95, Nucleated RBC % 0, Sodium 134 L, Potassium 4.2, Chloride 106, Carbon Dioxide 23.0, Anion Gap 5, BUN 9, Creatinine 0.83, Estim Creat Clear Calc 132.45, Est GFR (MDRD) Af Amer 134, Est GFR (MDRD) Non-Af 111, BUN/Creatinine Ratio 10.9, Glucose 146 H, Calcium 8.0 L, Total Bilirubin 1.20 H, AST 230 H, ALT 98 H, Alkaline Phosphatase 85, Total Protein 5.8 L, Albumin 2.8 L, Globulin 3.0, Albumin/Globulin Ratio 0.9 10/16/23 11:29: POC Glucose 211 H 10/16/23 12:10: Sodium 132 L, Potassium 4.5, Chloride 104, Carbon Dioxide 22.0, Anion Gap 6, BUN 10, Creatinine 0.90, Estim Creat Clear Calc 122.15, Est GFR (MDRD) Af Amer 121, Est GFR (MDRD) Non-Af 100, BUN/Creatinine Ratio 11.1, Glucose 266 H, Calcium 8.0 L, Total Creatine Kinase 3847 H 10/16/23 15:53: POC Glucose 258 H Microbiology: Microbiology 02/03/24 15:00 Stool Enteric Bacteriology - Final 10/15/23 13:35 Stool Clostridioides difficile (PCR) - Final 10/14/23 18:38 Mucosa - Nose SARS-CoV-2, Influenza & RSV (PCR) - Final ABG: ABG 10/16/23 10:05 Specimen Type ART Sample Site L Radial pH 7.32 L Bicarbonate Actual 19.5 L Total CO2 21 Base Excess -7 L O2 Saturation 100 H O2 % 100.0 ABG pCO2 38.0 ABG pO2 186 H Gerson Test Positive Respiration Rate 12 O2 Delivery Device Adult Vent Vent Mode AC Tidal Volume 450.0 POC PEEP 5 Radiography Diagnostic Testing: Radiology Impression Chest X-Ray 10/16/23 08:40 IMPRESSION: Interval development of moderate bilateral pulmonary edema and consolidation consistent with ARDS/multifocal pneumonia. Electronically Signed: Bartolome Montoya MD at 9:59 EST Reading Location ID and State: [address] [place] [address] , Service support , Meaningful Use Info Meaningful Use Diagnoses (Choose all that apply): None applicable Discharge Plan Admission Admit Date/Time: 10/14/23 23:13 Attending Provider: Lexa Fernandez Primary Care Provider: David Kern Consulting Providers: Sarika Albarran; Jolie Raygoza; Vince Murillo; Newton Souza; Ricky Greenberg; Dina Lee; Joey Miranda; Shawna Sales; Jesus Manuel Hong; Shane Sorto; Abrahan Cabrera; Guanakito Carpenter; Rodo Domínguez; AdeTaylor sidhu; Gwen Boss; Rachael Espinoza; Karlos Gomez; Altagracia Mercado; MEGGAN LOPEZ; Bertha Perkins; Jasmina Motley; Lc Rodriguez; Aislinn Frazier Discharge Orders/Prescriptions Prescriptions: No Action (DME) Insulin Pump See Rx Instructions .Route .MEDSUPPLY Rx Instructions: Patient has Humalog Insulin Pump average is about 60 units in one day. rosuvastatin 5 mg tablet 5 mg PO DAILY Qty: 90 3RF calcium carbonate-vitamin D3 600 mg-10 mcg (400 unit) tablet 1 tab PO DAILY Qty: 60 6RF prednisone 10 mg tablet 10 mg PO DAILY lisinopril 30 mg tablet 30 mg PO DAILY Qty: 90 1RF (DME) Contour Next Test Strips Strip See Rx Instructions .Route Qty: 200 11RF Rx Instructions: 6x/day insulin lispro [Humalog U-100 Insulin] 100 unit/mL solution 100 unit continuous subcutaneous infusion .continuous Qty: 90 1RF hydroxyzine HCl 25 mg tablet 25 mg PO TID PRN (Reason: anxiety) Qty: 90 1RF sertraline 100 mg tablet 100 mg PO DAILY (DME) lancets [Accu-Chek Fastclix Lancet Drum] Misc See Rx Instructions .Route Qty: 200 5RF Rx Instructions: 4x/day Referrals / Follow Up: David Kern MD [Primary Care Provider] - Disposition Discharge Orders: Discharge Patient (Routine); Ordered 10/16/23 Ordered By: Dr. Lexa Fernandez Charges/Coding Visit Charges Inpatient E&M: 19037 Disch Hosp >30min
--- NOTE | 2023-10-17 10:51 | EEG_ITS ---
EEG Results Procedure Details EEG Procedure Details: EEG Report Patient: JOLIE BERNAL Date of : 1985 Sex: Male Age: 38 years old Height: 0.0 in in Inpatient routine EEG report: Study start time: 10/16/2023 01:55 PM End Time: 10/16/2023 02:16 PM History: 38 year old male admitted with encephalopathy Indication: rule out status epilepticus Technical Description: This is a 21-channel digital EEG recording with time- locked video and single-channel electrocardiogram. Electrodes are placed according to the 10 to 20 International System. Additional T1 and T2 electrodes were placed. The patient was monitored continuously by EEG technicians by video and EEG recording was reviewed intermittently with annotations to the EEG record made every two hours. Portions of this record are reviewed using bandpass filters of 1 to 70 Hz and sensitivity of 7mV/mm. EEG DESCRIPTION Background: This recording was obtained during intubated and sedated state. In the maximally alert state, a posterior dominant rhythm was absent. During drowsiness, there was attenuation of the waking background. Stage II sleep architecture was not present. Background was comprised of diffuse polymorphic delta slow activity with overriding faster frequency. Activation Procedures: Photic stimulation did not induced normal physiological response. Sporadic Epileptiform Discharges: none Focal slow activity: none Rhythmic or Periodic activity: none Seizures: none Patient Events: none EEG DIAGNOSIS Diffuse slow activity, severe in degree CLINICAL INTERPRETATION This routine EEG is indicative of severe degree of encephalopathy ,in part may be related to sedative medications . No epileptiform activity or seizures were noted during this period of recording. EEG performed by: ANGELA Su ANGELA Su M.D. Neurology
[2023-10-18 09:58] LABS: Pathologist Review Reviewed
== END 2023-10-16 17:00 | disposition short-term general hospital (02) | DRG 637 ==
LOC: ED 20:49 → ICU 10-15 00:09
PROVIDERS: Admitting Provider Internal Medicine; Emergency Provider Emergency Medicine; PCP Internal Medicine; Visit Provider Family Medicine
DX: E10.649 Type 1 diabetes mellitus with hypoglycemia without coma (principal); J96.01 Acute respiratory failure with hypoxia; G93.40 Encephalopathy, unspecified; F10.231 Alcohol dependence with withdrawal delirium; M62.82 Rhabdomyolysis; E87.1 Hypo-osmolality and hyponatremia; N17.9 Acute kidney failure, unspecified; G70.00 Myasthenia gravis without (acute) exacerbation; Z79.4 Long term (current) use of insulin; I10 Essential (primary) hypertension; K76.0 Fatty (change of) liver, not elsewhere classified; F32.A Depression, unspecified; E86.0 Dehydration; F41.9 Anxiety disorder, unspecified; S01.01XA Laceration without foreign body of scalp, initial encounter; E78.5 Hyperlipidemia, unspecified; H53.2 Diplopia; K52.9 Noninfective gastroenteritis and colitis, unspecified; W19.XXXA Unspecified fall, initial encounter; Z79.52 Long term (current) use of systemic steroids; R74.01 Elevation of levels of liver transaminase levels; Y90.9 Presence of alcohol in blood, level not specified
CPT/HCPCS: 31500; 31720; 36600; 70450; 71045; 73030; 73080; 74176; 76705; 80048; 80053; 80074; 80076; 80307; 80320; 80329; 81001; 82550; 82803; 82962; 83605; 83735; 84100; 84439; 84443; 85025; 85610; 85730; 87040; 87070; 87077; 87186; 87205; 87493; 87506; 87631; 93005; 94002; 94668; 94799; 95819; 99252; 99285; J7030; J7040; A4216; G0463; G0480; J3486; J3490

== ENCOUNTER → 2023-11-04 | Outpatient (CLI) | payer OTHER, SELFPAY ==
[2023-11-04 09:41] LABS: Absolute Lymphocyte Count 1.35 X10^3/uL (0.83-4.51); Absolute Neutrophil Count 4.7 X10^3/uL (2.0-7.7); Basophil# 0.13 X10^3/uL; Basophil% 1.9 % (0-1); Eosinophil# 0.13 X10^3/uL; Eosinophils% 1.9 % (0-5); Hematocrit 45.6 % (40-54); Hemoglobin 15.3 g/dL (13.0-16.5); Lymphocyte # 1.35 X10^3/ul (0.83-4.51); Lymphocyte % 19.9 % (19-41); Mean Corp Hgb Conc 33.6 g/dL (32-36); Mean Corpuscular Hgb 32.9 pg (27.0-32.0); Mean Corpuscular Volume 98.1 fL (80-94); Mean Platelet Vol. 9.7 fl (6.2-12.0); Monocyte# 0.51 X10^3/uL; Monocyte% 7.5 % (0-10); NRBC Flagged by Analyzer 0 % (0-5); Neutrophil # 4.65 X10^3/uL (2.7-7.7); Neutrophil % 68.7 % (47-70); Platelet Count 389 K/mm3 (150-450); RBC Distribution Width CV 12.6 % (11.6-14.6); RBC Distribution Width SD 45.4 fl (35.1-43.9); Red Blood Count 4.65 M/mm3 (4.6-6.2); White Blood Count 6.8 K/mm3 (4.4-11.0)
[2023-11-04 10:10] LABS: Vitamin B12 830 pg/mL (211-911); Vitamin D,25 Hydroxy 22.1 ng/mL
[2023-11-04 10:17] LABS: ALB/GLOB Ratio 1.1 RATIO (0.9-2.4); AST(SGOT) 18 U/L (15-37); Alanine Aminotransfer ALT/SGPT 28 U/L (16-61); Albumin, Serum 3.9 g/dL (3.2-5.0); Alkaline Phosphatase 85 U/L (45-117); Anion Gap 6 (5-15); BUN 14 mg/dL (7-18); BUN/Creat Ratio 13.7 RATIO (10-20); Calcium,Total 9.8 mg/dL (8.5-10.1); Chloride 102 mmol/L (98-107); Cholesterol 232 mg/dL (200); Creatinine, Serum 1.02 mg/dL (0.70-1.30); EST Glomerular Filtration Rate 87 mL/min (>60); Est Glom Filt Rate - Afr Amer 105 mL/min (>60); Globulin 3.4 g/dL (2.2-4.2); Glucose 233 mg/dL (74-106); High Density Lipoprotein 67 mg/dL; Protein, Total 7.3 g/dL (6.4-8.2); Sodium Level 138 mmol/L (136-145); Thyroid Stim Hormone (TSH) 1.46 uIU/mL (0.358-3.74); Triglycerides 47 mg/dL; Very Low Density Lipoprotein 9 mg/dL (5-40)
== END | disposition home or self-care (01) ==
LOC: LAB 08:56
PROVIDERS: PCP Nurse Practitioner Family; Referring Provider Nurse Practitioner Family; Visit Provider Nurse Practitioner Family
DX: G40.509 Epileptic seizures related to external causes, not intractable, without status epilepticus (principal)
CPT/HCPCS: 36415; 80053; 80061; 82306; 82607; 84443; 85025

== ENCOUNTER 2024-05-25 15:43 | Inpatient (IN) | payer BC, SELFPAY ==
[2024-05-25] VITALS (7 sets, daily range): BP systolic 115–151; BP diastolic 67–101; PULSE 87–120; RESP 16–20; TEMP 36.6–37; O2SAT 94–100; BMI 27.0; BMI 26.1
--- NOTE | 2024-05-25 16:10 | EDS_ITS ---
HPI History of Present Illness Chief Complaint: ETOH Intox Informant: patient Narrative Narrative: 38-year-old male here for depression and detox. He has a history of alcoholism he has been sober for 7 months but due to he and his recently telling her children that they are getting , he started drinking heavily 1 week ago. In that amount of time he has gone through 2 bottles of whiskey he states. When asked if he has had any withdrawal symptoms, he states he has not given himself the chance to go into withdrawal. His last drink was just before coming here and he feels no withdrawal symptoms now. The last time he stopped drinking he went into withdrawal and had alcohol withdrawal seizures, and he is wanting to stop but afraid to because of that, and asking to do it in a safe setting such as inpatient. With regards to feeling depressed, he feels suicidal thoughts but he denies having any intent on harming himself, and states the best way he can put it in words is that he wishes he was not alive. He is here with his soon-to-be ex-, who is supporting him and they are getting along in context of trying to get him help at this time. He also states that for the past 2 or 3 days he is have significant difficulty urinating, he feels like he needs to go but is unable to empty his bladder, only going relatively small amounts at a time. Denies any hematuria. [facility] Medical History URI (upper respiratory infection) Tachycardia Hypertension Presence of insulin pump Alcoholic hepatitis Anemia Fatty liver Elevated bilirubin Type 1 diabetes mellitus Anxiety Ocular myasthenia gravis Home Medications ?Medication ?Instructions ?Recorded ?Last Taken ?Type lancets (Accu-Chek Fastclix Lancet #200 ea 10/28/22 Unknown Rx Drum) sertraline 100 mg tablet 100 mg PO DAILY 10/14/23 Unknown History blood sugar diagnostic (Contour #200 ea 03/29/24 Unknown Rx Next Test Strips) pen needle, diabetic 32 gauge x #150 ea 03/29/24 Unknown Rx (BD Ultra-Fine Clarisa Pen Needle) prednisone 10 mg tablet 30 mg (3 x 10 mg) PO DAILY occular 04/12/24 Unknown Rx myasthenia gravis #21 tabs blood-glucose sensor (FreeStyle #2 ea 04/19/24 Unknown Rx Caroline 3 Sensor device) lisinopril 30 mg tablet 30 mg PO DAILY #90 tabs 04/19/24 Unknown Rx insulin aspart U-100 100 unit/mL 15 unit (0.15 mL) subcut TID #54 mL 04/23/24 Unknown Rx (3 mL) subcutaneous pen (Novolog FlexPen U-100 Insulin aspart) OneTouch Verio Flex meter #1 ea 05/10/24 Unknown Rx (blood-glucose meter) OneTouch Verio test strips (blood #150 ea 05/10/24 Unknown Rx sugar diagnostic) lancets 33 gauge (OneTouch Delica #150 ea 05/10/24 Unknown Rx Plus Lancet) insulin glargine 100 unit/mL (3 See Rx Instructions subcut BID 05/25/24 Unknown History mL) subcutaneous pen (Lantus Solostar U-100 Insulin) rosuvastatin 5 mg tablet 5 mg PO DAILY 05/25/24 Unknown History Allergy/AdvReac Type Severity Reaction Status Date / Time azathioprine AdvReac Severe Vomiting Verified 05/25/24 15:44 Family History Sister Alcoholism Thyroid disorder Depression Mother Thyroid disorder Bleeding disorder Depression Hypertension High cholesterol Father Hypertension High cholesterol Surgical History No history of previous surgery Social History household members: none housing: apartment current occupational status: employed current occupation: [email or web address] pets and animals: Yes pets and animals: dog(s) sexually active: Yes Smoking Status: Never smoker second hand exposure: No alcohol intake: never substance use type: does not use diet: diabetic caffeine: Yes (1) Type: carbonated beverages what type of physical activity do you participate in: none dayday/yazidism: Mandaen seatbelt use: always do you feel safe at home: Yes ROS ROS ED Constitutional Constitutional ED: Denies chills or fever(s) Eyes Eyes: Denies change in vision or diplopia ENT ENT ED: Denies rhinorrhea or sore throat Cardiovascular Cardiovascular: Denies chest pain or palpitations Respiratory/Chest Respiratory/Chest: Denies cough or dyspnea Gastrointestinal Gastrointestinal: Denies abdominal pain, diarrhea, nausea or vomiting Genitourinary Genitourinary ED: Reports as per HPI, difficulty urinating and urinary frequency; Denies dysuria or hematuria Musculoskeletal Musculoskeletal: Denies back pain or neck pain Integumentary Denies abscess or rash Neurologic Neurologic: Denies headache(s), paresthesias or weakness Psychiatric Psychiatric: Reports anxiety, depression and suicidal thoughts; Denies homicidal ideation or suicidal ideation EXAM Physical Exam Const Vital Signs: 05/25/24 15:44 05/25/24 16:43 05/25/24 17:00 Temperature 97.8 F Temperature Source Temporal Pulse Rate 108 H 112 H 120 H Respiratory Rate 20 H 18 16 Blood Pressure 145/95 H 139/96 H 138/98 H Blood Pressure Mean 111 110 111 Pulse Ox 100 94 99 Oxygen Delivery Method Room Air Room Air Room Air 05/25/24 18:00 Temperature Temperature Source Pulse Rate 118 H Respiratory Rate 18 Blood Pressure 145/75 H Blood Pressure Mean 98 Pulse Ox 99 Oxygen Delivery Method Room Air Positive well nourished and well developed General Appearance ED: well developed and NAD HEENT Reports moist mucous membranes normocephalic and atraumatic Eyes PERRL and EOMs intact bilaterally General Eye ED: Negative for scleral icterus Neck no lymphadenopathy and supple Resp normal respiratory effort and clear to auscultation bilaterally Cardio no murmurs Rate: regular rate Rhythm: regular rhythm GI non-distended GI Narrative: Discomfort with palpation suprapubic but no tenderness. Otherwise benign abdomen. Auscultation: normoactive bowel sounds Palpation: soft Back/Spine no CVA tenderness and normal ROM Extremity normal to inspection General Extremety ED: Negative for edema General Extremity: Negative for edema Neuro oriented x3, CN's II-XII intact bilaterally, no sensory deficits noted and gait normal Sensorium / Orientation: alert Motor Exam: strength 5/5 throughout Psych mental status grossly normal, thought process normal, cooperative, activity/motor behavior normal and denies homicidal ideation Mood & Affect: depressed and tearful Thought Process: normal thought process Thought Content: normal thought content Attention / Concentration: attention grossly intact Memory / Cognition: memory grossly intact Insight: insight good Skin Lesions: no lesions Rashes: no rashes MDM MDM MDM Narrative Medical decision making narrative: Labs obtained including drug screen and alcohol. We attempted to obtain a postvoid residual. Patient was not able to urinate at all, and the bedside ultrasound showed over 900 cc of urine. He was amenable to catheter which was placed, he had almost a liter of urine out and felt better. Urinalysis negative for infection. Nurses said that there was some resistance in the area of the prostate which may or may not be the reason here. Reasonable to admit him for this in addition to his desire for detox, discussed with hospitalist. In my professional judgment, this patient does not meet criteria to need to be involuntarily admitted to a psychiatric facility, does not have intent of suicide, but does need to be referred for counseling. Lab Data Attestation: I reviewed the patient's lab results. Labs: Laboratory Results - last 24 hr 05/25/24 05/25/24 05/25/24 16:17 16:24 18:21 WBC 9.2 RBC 5.09 Hgb 14.9 Hct 44.0 MCV 86.4 MCH 29.3 MCHC 33.9 RDW Std Deviation 41.3 RDW Coeff of Keli 13.2 Plt Count 292 MPV 8.8 Immature Gran % (Auto) 0.400 Neut % (Auto) 61.3 Lymph % (Auto) 29.8 [place] % (Auto) 7.4 Eos % (Auto) 0.1 Baso % (Auto) 1.0 Absolute Neuts (auto) 5.7 Absolute Lymphs (auto) 2.75 Nucleated RBC % 0 Sodium 137 Potassium 3.8 Chloride 100 Carbon Dioxide 29.0 Anion Gap 8 BUN 14 Creatinine 0.88 Estim Creat Clear Calc 124.92 Est GFR (MDRD) Af Amer 125 Est GFR (MDRD) Non-Af 103 BUN/Creatinine Ratio 16.0 Glucose 113 H Calcium 8.7 Total Bilirubin 0.40 AST 34 ALT 36 Alkaline Phosphatase 85 Total Protein 7.1 Albumin 3.5 Globulin 3.6 Albumin/Globulin Ratio 1.0 Urine Color Yellow Urine Clarity Clear Urine pH 7.0 Ur Specific [place] 1.010 Urine Protein Negative Urine Glucose (UA) Normal Urine Ketones Negative Urine Occult Blood 25 H Urine Nitrite Negative Urine Bilirubin Negative Urine Urobilinogen Normal Ur Leukocyte Esterase Negative Urine Opiates Screen NEGATIVE Urine Methadone Screen NEGATIVE Ur Barbiturates Screen NEGATIVE Ur Phencyclidine Scrn NEGATIVE Ur Amphetamines Screen NEGATIVE MDMA (Ecstasy) Screen NEGATIVE U Benzodiazepines Scrn NEGATIVE Urine Cocaine Screen NEGATIVE U Cannabinoids Screen NEGATIVE Ur Drug Screen Comment Ethyl Alcohol 293.0 POC Glucose 106 65 L Management Discussion w/another healthcare provider: Hospitalist Discharge Plan Dx/Rx/DC Orders Clinical Impression: Alcohol dependence, Acute urinary retention, Suicidal thoughts Disposition Disposition: Acute Care Hospital [facility]
[2024-05-25 16:37] LABS: Absolute Lymphocyte Count 2.75 X10^3/uL (0.83-4.51); Absolute Neutrophil Count 5.7 X10^3/uL (2.0-7.7); Basophil# 0.09 X10^3/uL; Eosinophil# 0.01 X10^3/uL; Eosinophils% 0.1 % (0-5); Hemoglobin 14.9 g/dL (13.0-16.5); Lymphocyte # 2.75 X10^3/ul (0.83-4.51); Lymphocyte % 29.8 % (19-41); Mean Corp Hgb Conc 33.9 g/dL (32-36); Mean Corpuscular Hgb 29.3 pg (27.0-32.0); Mean Corpuscular Volume 86.4 fL (80-94); Mean Platelet Vol. 8.8 fl (6.2-12.0); Monocyte# 0.68 X10^3/uL; Monocyte% 7.4 % (0-10); NRBC Flagged by Analyzer 0 % (0-5); Neutrophil # 5.67 X10^3/uL (2.7-7.7); Neutrophil % 61.3 % (47-70); Platelet Count 292 K/mm3 (150-450); RBC Distribution Width CV 13.2 % (11.6-14.6); RBC Distribution Width SD 41.3 fl (35.1-43.9); Red Blood Count 5.09 M/mm3 (4.6-6.2); White Blood Count 9.2 K/mm3 (4.4-11.0)
--- NOTE | 2024-05-25 16:37 | ED.RN ---
I was instructed by the patient that he prefers we contact w/ updates at this time.
[2024-05-25 16:45] LABS: Bedside Glucose 106 mg/dL (74-106)
[2024-05-25 16:49] LABS: AST(SGOT) 34 U/L (15-37); Alanine Aminotransfer ALT/SGPT 36 U/L (16-61); Albumin, Serum 3.5 g/dL (3.2-5.0); Alkaline Phosphatase 85 U/L (45-117); Anion Gap 8 (5-15); BUN 14 mg/dL (7-18); Calcium,Total 8.7 mg/dL (8.5-10.1); Chloride 100 mmol/L (98-107); Creatinine, Serum 0.88 mg/dL (0.70-1.30); EST Glomerular Filtration Rate 103 mL/min (>60); Est Glom Filt Rate - Afr Amer 125 mL/min (>60); Estimated Creatinine Clearance 124.92 ml/min; Globulin 3.6 g/dL (2.2-4.2); Glucose 113 mg/dL (74-106); Potassium 3.8 mmol/L (3.5-5.1); Protein, Total 7.1 g/dL (6.4-8.2); Sodium Level 137 mmol/L (136-145)
[2024-05-25 18:04] LABS: Bacteria 0 SEEN /hpf (None Seen); Mucous, Urine 0 SEEN /hpf (<or=2+); Squamous Epithelial Cells - UA 0 SEEN /hpf (0-5); White Blood Cells 0 SEEN /hpf (0-5)
[2024-05-25 18:08] LABS: Color, Urine Yellow (Yellow); Glucose, Dipstick Normal (Normal); Ketone-Dipstick Negative (Negative); Leukocyte Esterase-Dipstick Negative /ul (Negative); Nitrite-Dipstick Negative (Negative); Occult Blood-Urine 25 /ul (Negative); Protein-Dipstick Negative (Negative); Urine Bilirubin Dipstick Negative (Negative); Urine Clarity Clear (Clear); Urine Urobilinogen Normal (Normal)
[2024-05-25 18:26] LABS: Amphetamine Urine VISTA NEGATIVE (<1000 ng/mL); Barbiturate Urine VISTA NEGATIVE (< 200 ng/mL); Benzodiazepine Urine VISTA NEGATIVE (< 200 ng/mL); Cocaine Urine VISTA NEGATIVE (< 300 ng/mL); Ecstacy Urine VISTA NEGATIVE (< 500 ng/mL); Methadone Urine VISTA NEGATIVE (< 300 ng/mL); PCP Urine VISTA NEGATIVE (< 25 ng/mL); THC Urine VISTA NEGATIVE (< 50 ng/mL); Vista UDS pH Range 7
[2024-05-25 18:40] LABS: Bedside Glucose 65 mg/dL (74-106)
[2024-05-25 18:47] LABS: Red Blood Cells-Urine 0-5 SEEN /hpf (0-5)
[2024-05-25 19:39] LABS: Bedside Glucose 77 mg/dL (74-106)
--- NOTE | 2024-05-25 19:51 | HP.PCM.HOS_ITS ---
HPI - General General Date of Admission: 05/25/24 HPI Narrative JOLIE BERNAL, is a 38 M who presents to the hospital requesting alcohol. 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 The patient states that there was nothing abnormal found on his workup at the outside facility. He says that he had been sober for about 7 months and then he and his began the separation process and he started drinking, he says that he is drank 2 large bottles of whiskey in the last 6 days. LFTs in the ER are normal and his blood alcohol level is 293. He is presenting with a CIWA score of 12. FORMERLY [facility], [facility]–1983 Medical History URI (upper respiratory infection) Tachycardia Hypertension Presence of insulin pump Alcoholic hepatitis Anemia Fatty liver Elevated bilirubin Type 1 diabetes mellitus Anxiety Ocular myasthenia gravis Home Medications ?Medication ?Instructions ?Recorded ?Last Taken ?Type lancets (Accu-Chek Fastclix Lancet #200 ea 10/28/22 Unknown Rx Drum) sertraline 100 mg tablet 100 mg PO DAILY 10/14/23 Unknown History blood sugar diagnostic (Contour #200 ea 03/29/24 Unknown Rx Next Test Strips) pen needle, diabetic 32 gauge x #150 ea 03/29/24 Unknown Rx (BD Ultra-Fine Clarisa Pen Needle) prednisone 10 mg tablet 30 mg (3 x 10 mg) PO DAILY occular 04/12/24 Unknown Rx myasthenia gravis #21 tabs blood-glucose sensor (FreeStyle #2 ea 04/19/24 Unknown Rx Caroline 3 Sensor device) lisinopril 30 mg tablet 30 mg PO DAILY #90 tabs 04/19/24 Unknown Rx insulin aspart U-100 100 unit/mL 15 unit (0.15 mL) subcut TID #54 mL 04/23/24 Unknown Rx (3 mL) subcutaneous pen (Novolog FlexPen U-100 Insulin aspart) OneTouch Verio Flex meter #1 ea 05/10/24 Unknown Rx (blood-glucose meter) OneTouch Verio test strips (blood #150 ea 05/10/24 Unknown Rx sugar diagnostic) lancets 33 gauge (OneTouch Delica #150 ea 05/10/24 Unknown Rx Plus Lancet) insulin glargine 100 unit/mL (3 See Rx Instructions subcut BID 05/25/24 Unknown History mL) subcutaneous pen (Lantus Solostar U-100 Insulin) rosuvastatin 5 mg tablet 5 mg PO DAILY 05/25/24 Unknown History Allergy/AdvReac Type Severity Reaction Status Date / Time azathioprine AdvReac Severe Vomiting Verified 05/25/24 15:44 Family History Sister Alcoholism Thyroid disorder Depression Mother Thyroid disorder Bleeding disorder Depression Hypertension High cholesterol Father Hypertension High cholesterol Surgical History No history of previous surgery Social History household members: none housing: apartment current occupational status: employed current occupation: [employer] pets and animals: Yes pets and animals: dog(s) sexually active: Yes Smoking Status: Never smoker second hand exposure: No alcohol intake: never substance use type: does not use diet: diabetic caffeine: Yes (1) Type: carbonated beverages what type of physical activity do you participate in: none dayday/yazdanism: Druze seatbelt use: always do you feel safe at home: Yes ROS Constitutional Constitutional: Denies chills, fatigue, fever(s) or malaise Eyes Eyes: Denies blurry vision ENT HEENT: Denies headache(s) or nasal discharge Cardiovascular Cardiovascular: Denies chest pain, dyspnea on exertion or syncope Respiratory/Chest Respiratory/Chest: Denies cough, shortness of breath at rest or shortness of breath with exertion Gastrointestinal Gastrointestinal: Denies constipation, diarrhea, nausea or vomiting Genitourinary Genitourinary: Denies dysuria Neurologic Neurologic: Reports tremor(s); Denies focal weakness or numbness Psychiatric Psychiatric: Reports anxiety, depression and suicidal ideation Vital Signs Vital Signs Vital Signs: 05/25/24 15:44 05/25/24 16:43 05/25/24 17:00 Temperature 97.8 F Temperature Source Temporal Pulse Rate 108 H 112 H 120 H Respiratory Rate 20 H 18 16 Blood Pressure 145/95 H 139/96 H 138/98 H Blood Pressure Mean 111 110 111 Blood Pressure Source Blood Pressure Position Blood Pressure Location Pulse Ox 100 94 99 Oxygen Delivery Method Room Air Room Air Room Air 05/25/24 18:00 05/25/24 19:00 05/25/24 19:00 Temperature 98.5 F Temperature Source Pulse Rate 118 H 87 87 Respiratory Rate 18 18 18 Blood Pressure 145/75 H 135/70 H 135/70 H Blood Pressure Mean 98 91 91 Blood Pressure Source Monitor Blood Pressure Position Semi-Fowlers Blood Pressure Location Left Arm Pulse Ox 99 100 100 Oxygen Delivery Method Room Air Room Air Weight Weight: 199 lb 4.8 oz Body Mass Index (BMI) 27.0 Physical Exam Narrative General: Alert, Oriented x3, Cooperative, tremors and fidgeting HEENT: Atraumatic, PERRLA, EOMI, Normocephalic Oral: Moist Mucosa Neck: Supple, No JVD Lungs: Clear to auscultation, Normal air movement, No rhonchi, No wheeze, No rales Cardiovascular: Regular rate, Regular Rhythm, Normal S1, Normal S2, No murmurs Abdomen: Soft, Non Tender, Non-Distended, No Hepato-splenomegaly Extremities: No edema, Capillary Refill Less than 3 Seconds Skin: No rashes, No breakdown Musculoskeletal: No Tenderness to Palpation of Joints or Extremities Neurological: No focal neurological deficits, Motor Exam 5/5 strength throughout, Sensory exam intact to light touch and pain Psych/Mental Status: Flat, anxious Results Lab / Micro Data 05/25/24 16:24 05/25/24 16:24 Labs: Laboratory Results - last 24 hr 05/25/24 16:17: POC Glucose 106 05/25/24 16:24: WBC 9.2, RBC 5.09, Hgb 14.9, Hct 44.0, MCV 86.4, MCH 29.3, MCHC 33.9, RDW Std Deviation 41.3, RDW Coeff of Keli 13.2, Plt Count 292, MPV 8.8, Immature Gran % (Auto) 0.400, Neut % (Auto) 61.3, Lymph % (Auto) 29.8, [place] % (Auto) 7.4, Eos % (Auto) 0.1, Baso % (Auto) 1.0, Absolute Neuts (auto) 5.7, Absolute Lymphs (auto) 2.75, Nucleated RBC % 0, Sodium 137, Potassium 3.8, Chloride 100, Carbon Dioxide 29.0, Anion Gap 8, BUN 14, Creatinine 0.88, Estim Creat Clear Calc 124.92, Est GFR (MDRD) Af Amer 125, Est GFR (MDRD) Non-Af 103, BUN/Creatinine Ratio 16.0, Glucose 113 H, Calcium 8.7, Total Bilirubin 0.40, AST 34, ALT 36, Alkaline Phosphatase 85, Total Protein 7.1, Albumin 3.5, Globulin 3.6, Albumin/Globulin Ratio 1.0, Urine Color Yellow, Urine Clarity Clear, Urine pH 7.0, Ur Specific [place] 1.010, Urine Protein Negative, Urine Glucose (UA) Normal, Urine Ketones Negative, Urine Occult Blood 25 H, Urine Nitrite Negative, Urine Bilirubin Negative, Urine Urobilinogen Normal, Ur Leukocyte Esterase Negative, Urine RBC 0-5 SEEN, Urine WBC 0 SEEN, Ur Squamous Epith Cells 0 SEEN, Urine Bacteria 0 SEEN, Urine Mucus 0 SEEN, Urine Opiates Screen NEGATIVE, Urine Methadone Screen NEGATIVE, Ur Barbiturates Screen NEGATIVE, Ur Phencyclidine Scrn NEGATIVE, Ur Amphetamines Screen NEGATIVE, MDMA (Ecstasy) Screen NEGATIVE, U Benzodiazepines Scrn NEGATIVE, Urine Cocaine Screen NEGATIVE, U Cannabinoids Screen NEGATIVE, Ur Drug Screen Comment , Ethyl Alcohol 293.0 05/25/24 18:21: POC Glucose 65 L 05/25/24 19:18: POC Glucose 77 Assessment & Plan Assessment/Plan (1) Alcohol dependence: PLAN: Plan 1. Requesting detox from alcohol/anxiety/depression ? Given his history of DTs and seizures requiring intubation and a 24-hour EEG will continue with the alcohol withdrawal protocol with the addition of Librium 25 mg p.o. 3 times daily ? Will have him seen by 180 to discussed the possible possibility of inpatient rehab, at this time he is a little resistant ? LFTs are normal on this admission ? Continue Zoloft 2. Essential HTN/HLD ? Continue with his home blood pressure medications ? He is no longer taking his Crestor ? Will monitor make adjustments as necessary 3. Type 1 diabetes ? Continue with his home insulin ? Accu-Cheks ACHS ? Sliding scale insulin ? Will monitor make adjustments as necessary 4. Ocular myasthenia gravis/pityriasis rosea ? Continue with steroids ? Stable DVT: Ambulation 75 minutes was spent on direct patient care, including documentation as well as chart review and collaboration with colleagues Charges/Coding Visit Charges Inpatient E&M: 61234 Init Hosp L3
[2024-05-25] MEDS: Gabapentin 300 MG Capsule PO (20:58)
[2024-05-25] MEDS: Phenobarbital 32.4 MG Tablet 64.8 MG PO (20:58)
[2024-05-25 21:40] LABS: Bedside Glucose 107 mg/dL (74-106)
[2024-05-25] MEDS: Ondansetron 8 MG Tablet PO (21:42)
[2024-05-25] MEDS: chlordiazePOXIDE 25 MG Capsule PO (22:07)
[2024-05-25] MEDS: Insulin Glargine-YFGN 100 UNIT/ML Pen 16 UNIT SC (22:09)
[2024-05-25] MEDS: hydrOXYzine PAM 25 MG Capsule 50 MG PO (23:22)
[2024-05-25] MEDS: traZODone 100 MG Tablet PO (23:22)
[2024-05-26] VITALS (7 sets, daily range): BP systolic 130–152; BP diastolic 70–99; PULSE 78–97; RESP 16–18; TEMP 36.1–36.9; O2SAT 94–99
[2024-05-26] MEDS: Phenobarbital 32.4 MG Tablet 64.8 MG PO ×6 (01:16→21:56)
[2024-05-26] MEDS: chlordiazePOXIDE 25 MG Capsule PO ×3 (05:33→22:18)
[2024-05-26 06:29] LABS: Absolute Lymphocyte Count 2.65 X10^3/uL (0.83-4.51); Absolute Neutrophil Count 7.2 X10^3/uL (2.0-7.7); Basophil# 0.09 X10^3/uL; Basophil% 0.8 % (0-1); Eosinophil# 0.09 X10^3/uL; Eosinophils% 0.8 % (0-5); Hematocrit 40.7 % (40-54); Hemoglobin 13.7 g/dL (13.0-16.5); Lymphocyte # 2.65 X10^3/ul (0.83-4.51); Lymphocyte % 24.4 % (19-41); Mean Corp Hgb Conc 33.7 g/dL (32-36); Mean Corpuscular Hgb 29.3 pg (27.0-32.0); Mean Platelet Vol. 9.1 fl (6.2-12.0); Monocyte# 0.75 X10^3/uL; Monocyte% 6.9 % (0-10); NRBC Flagged by Analyzer 0 % (0-5); Neutrophil # 7.21 X10^3/uL (2.7-7.7); Neutrophil % 66.6 % (47-70); Platelet Count 268 K/mm3 (150-450); RBC Distribution Width CV 13.4 % (11.6-14.6); RBC Distribution Width SD 42.6 fl (35.1-43.9); Red Blood Count 4.68 M/mm3 (4.6-6.2); White Blood Count 10.8 K/mm3 (4.4-11.0)
[2024-05-26 06:57] LABS: AST(SGOT) 25 U/L (15-37); Alanine Aminotransfer ALT/SGPT 27 U/L (16-61); Albumin, Serum 3.1 g/dL (3.2-5.0); Alkaline Phosphatase 75 U/L (45-117); Anion Gap 7 (5-15); BUN 13 mg/dL (7-18); BUN/Creat Ratio 16.3 RATIO (10-20); Calcium,Total 8.7 mg/dL (8.5-10.1); Chloride 100 mmol/L (98-107); EST Glomerular Filtration Rate 115 mL/min (>60); Est Glom Filt Rate - Afr Amer 139 mL/min (>60); Estimated Creatinine Clearance 137.42 ml/min; Globulin 3.1 g/dL (2.2-4.2); Glucose 68 mg/dL (74-106); Potassium 3.5 mmol/L (3.5-5.1); Protein, Total 6.2 g/dL (6.4-8.2); Sodium Level 136 mmol/L (136-145)
[2024-05-26 07:13] LABS: Bedside Glucose 101 mg/dL (74-106)
[2024-05-26 07:13] LABS: Bedside Glucose 64 mg/dL (74-106)
--- NOTE | 2024-05-26 07:52 | PN.HOSP_ITS ---
Reason for Visit Reason for Visit: Diagnoses Alcohol dependence, uncomplicated (05/25/24) Subjective Subjective Stroke about 24 hours ago. Feeling okay at present Objective Data Objective Data Vital Signs: Vital Signs Temp Pulse Resp BP Pulse Ox O2 Del Method 36.7 C 93 18 146/99 H 95 Room Air 05/26/24 05:32 05/26/24 05:32 05/26/24 05:32 05/26/24 05:32 05/26/24 05:32 05/26/24 05:32 Oxygen Delivery Method Room Air Weight: 87.3 kg Body Mass Index (BMI) 26.1 Intake & Output: Intake and Output for Last 24 Hours 05/24/24 05/25/24 05/26/24 23:59 23:59 23:59 Intake Total 450 / 650 500 / 500 Output Total 1850 / 2650 1250 / 1250 Balance -1400 / -2000 -750 / -750 Lab / Micro Data 05/26/24 05:45 05/26/24 05:45 Labs: Laboratory Results - last 24 hr 05/25/24 16:17: POC Glucose 106 05/25/24 16:24: WBC 9.2, RBC 5.09, Hgb 14.9, Hct 44.0, MCV 86.4, MCH 29.3, MCHC 33.9, RDW Std Deviation 41.3, RDW Coeff of Keli 13.2, Plt Count 292, MPV 8.8, Immature Gran % (Auto) 0.400, Neut % (Auto) 61.3, Lymph % (Auto) 29.8, [place] % (Auto) 7.4, Eos % (Auto) 0.1, Baso % (Auto) 1.0, Absolute Neuts (auto) 5.7, Absolute Lymphs (auto) 2.75, Nucleated RBC % 0, Sodium 137, Potassium 3.8, Chloride 100, Carbon Dioxide 29.0, Anion Gap 8, BUN 14, Creatinine 0.88, Estim Creat Clear Calc 124.92, Est GFR (MDRD) Af Amer 125, Est GFR (MDRD) Non-Af 103, BUN/Creatinine Ratio 16.0, Glucose 113 H, Calcium 8.7, Total Bilirubin 0.40, AST 34, ALT 36, Alkaline Phosphatase 85, Total Protein 7.1, Albumin 3.5, Globulin 3.6, Albumin/Globulin Ratio 1.0, Urine Color Yellow, Urine Clarity Clear, Urine pH 7.0, Ur Specific [place] 1.010, Urine Protein Negative, Urine Glucose (UA) Normal, Urine Ketones Negative, Urine Occult Blood 25 H, Urine Nitrite Negative, Urine Bilirubin Negative, Urine Urobilinogen Normal, Ur Leukocyte Esterase Negative, Urine RBC 0-5 SEEN, Urine WBC 0 SEEN, Ur Squamous Epith Cells 0 SEEN, Urine Bacteria 0 SEEN, Urine Mucus 0 SEEN, Urine Opiates Screen NEGATIVE, Urine Methadone Screen NEGATIVE, Ur Barbiturates Screen NEGATIVE, Ur Phencyclidine Scrn NEGATIVE, Ur Amphetamines Screen NEGATIVE, MDMA (Ecstasy) Screen NEGATIVE, U Benzodiazepines Scrn NEGATIVE, Urine Cocaine Screen NEGATIVE, U Cannabinoids Screen NEGATIVE, Ur Drug Screen Comment , Ethyl Alcohol 293.0 05/25/24 18:21: POC Glucose 65 L 05/25/24 19:18: POC Glucose 77 05/25/24 21:21: POC Glucose 107 H 05/26/24 05:45: WBC 10.8, RBC 4.68, Hgb 13.7, Hct 40.7, MCV 87.0, MCH 29.3, MCHC 33.7, RDW Std Deviation 42.6, RDW Coeff of Keli 13.4, Plt Count 268, MPV 9.1, Immature Gran % (Auto) 0.500, Neut % (Auto) 66.6, Lymph % (Auto) 24.4, [place] % (Auto) 6.9, Eos % (Auto) 0.8, Baso % (Auto) 0.8, Absolute Neuts (auto) 7.2, Absolute Lymphs (auto) 2.65, Nucleated RBC % 0, Sodium 136, Potassium 3.5, Chloride 100, Carbon Dioxide 29.0, Anion Gap 7, BUN 13, Creatinine 0.80, Estim Creat Clear Calc 137.42, Est GFR (MDRD) Af Amer 139, Est GFR (MDRD) Non-Af 115, BUN/Creatinine Ratio 16.3, Glucose 68 L, Calcium 8.7, Total Bilirubin 0.70, AST 25, ALT 27, Alkaline Phosphatase 75, Total Protein 6.2 L, Albumin 3.1 L, Globulin 3.1, Albumin/Globulin Ratio 1.0 05/26/24 06:19: POC Glucose 64 L 05/26/24 06:54: POC Glucose 101 Physical Exam Const alert and no apparent distress HEENT head/scalp atraumatic and moist oral mucous membranes Resp normal respiratory effort, no retractions, no use of accessory muscles and clear to auscultation bilaterally Cardio regular rate, regular rhythm, S1 normal heart sound and S2 normal heart sound GI normal to inspection, nondistended, normoactive bowel sounds, soft to palpation, non-tender and non-distended Neuro Sensorium / Orientation: awake and alert Assessment & Plan Assessment/Plan (1) Alcohol dependence: PLAN: Plan Alcohol withdrawal * On phenobarb taper as well as scheduled chlordiazepoxide * Patient history of DTs and required intubation in the past. As possible, that the patient may get worse in the next 48 to 72 hours. Chronic conditions * Anxiety/depression: Continue sertraline * Essential HTN/HLD: Continue with lisinopril, rosuvastatin * Type 1 diabetes: Continue with glargine, prandial insulin and sliding scale insulin. * Ocular myasthenia gravis/pityriasis rosea: Continue with prednisone VTE prophylaxis: Low risk at this point encourage ambulation but does get worse may consider chemical prophylaxis. Charges/Coding Visit Charges Inpatient E&M: 49169 Subs Hosp L2
[2024-05-26] MEDS: Lisinopril 10 MG Tablet 30 MG PO (08:59)
[2024-05-26] MEDS: predniSONE 10 MG Tablet 30 MG PO (09:02)
[2024-05-26] MEDS: Folic Acid 1 MG Tablet PO (09:02)
[2024-05-26] MEDS: Thiamine Hydrochloride 100 MG Tablet PO (09:03)
[2024-05-26] MEDS: Insulin Glargine-YFGN 100 UNIT/ML Pen 37 UNIT SC (09:11)
[2024-05-26] MEDS: Sertraline 50 MG Tablet 150 MG PO (09:26)
[2024-05-26] MEDS: Insulin Lispro 100 UNIT/ML INSULN.PEN SC ×3 (12:00→22:02)
--- NOTE | 2024-05-26 12:06 | CASEMGMT ---
Social Work SW met w/pt as he is listed as self pay. Pt states just started a job last week and has insurance, but does not have the information. Pt open to taking the resources SW brought in. SW provided to pt information on [employer], [employer], [employer], [employer] assist, prescription assistance programs and a Medicaid application. SW encouraged pt to call the financial dept after he is discharged with his insurance information. Pt states understanding. ROSA Gilliam
[2024-05-26 12:21] LABS: Bedside Glucose 328 mg/dL (74-106)
--- NOTE | 2024-05-26 16:09 | ADDICTION ---
This radio script writer met with PT to conduct ASAM, MSE, AUDIT assessments and to plan for d/c. PT A+Ox4 and participated actively. All assessments completed, financial application faxed to [facility] and placed in PT's chart. PT plans to f/u with individual counselor at [facility] for outpatient treatment and MAT services. Pt meets the criteria for Vivitrol and would like it when upon d/c. PT did not indicate a need for transportation post d/c from [facility].
[2024-05-26 17:03] LABS: Bedside Glucose 278 mg/dL (74-106)
[2024-05-26] MEDS: Insulin Glargine-YFGN 100 UNIT/ML Pen 16 UNIT SC (22:02)
[2024-05-26 23:44] LABS: Bedside Glucose 250 mg/dL (74-106)
[2024-05-27] MEDS: Phenobarbital 32.4 MG Tablet 64.8 MG PO ×6 (01:30→21:03)
[2024-05-27 06:00] VITALS: BP 118/87; PULSE 75; RESP 18; TEMP 36.7; O2SAT 97
[2024-05-27] MEDS: chlordiazePOXIDE 25 MG Capsule PO ×3 (06:14→21:25)
--- NOTE | 2024-05-27 08:36 | PCM.PN.HOSP ---
Reason for Visit Reason for Visit: Diagnoses Alcohol dependence, uncomplicated (05/25/24) Subjective Subjective Feeling better. Objective Data Objective Data Vital Signs: Vital Signs Temp Pulse Resp BP Pulse Ox O2 Del Method 36.7 C 75 18 118/87 H 97 Room Air 05/27/24 06:00 05/27/24 06:00 05/27/24 06:00 05/27/24 06:00 05/27/24 06:00 05/27/24 06:00 Oxygen Delivery Method Room Air Weight: 87.3 kg Body Mass Index (BMI) 26.1 Intake & Output: Intake and Output for Last 24 Hours 05/25/24 05/26/24 05/27/24 23:59 23:59 23:59 Intake Total 450 / 650 2450 / 3450 1900 / 1900 Output Total 1850 / 2650 3100 / 3100 Balance -1400 / -2000 -650 / 350 1900 / 1900 Lab / Micro Data 05/26/24 05:45 05/26/24 05:45 Labs: Laboratory Results - last 24 hr 05/26/24 12:03: POC Glucose 328 H 05/26/24 16:39: POC Glucose 278 H 05/26/24 22:00: POC Glucose 250 H Physical Exam Const alert and no apparent distress Constitutional Narrative: Less tremulous. HEENT head/scalp atraumatic Resp normal respiratory effort and no retractions Neuro Sensorium / Orientation: awake and alert Assessment & Plan Assessment/Plan (1) Alcohol dependence: PLAN: Plan Alcohol withdrawal On phenobarb taper as well as scheduled chlordiazepoxide Patient history of DTs and required intubation in the past. As possible, that the patient may get worse in the next 48 to 72 hours. Chronic conditions Anxiety/depression: Continue sertraline Essential HTN/HLD: Continue with lisinopril, rosuvastatin Type 1 diabetes: Continue with glargine, prandial insulin and sliding scale insulin. Ocular myasthenia gravis/pityriasis rosea: Continue with prednisone VTE prophylaxis: Low risk at this point encourage ambulation but does get worse may consider chemical prophylaxis. Disposition: To be determined. Monitor the patient for his alcohol withdrawal for 1-2 more days. Patient does have a history of very severe delirium tremens. Charges/Coding Visit Charges Inpatient E&M: 00910 [facility] Hosp L1
[2024-05-27] MEDS: Insulin Lispro 100 UNIT/ML INSULN.PEN SC ×4 (09:26→21:28)
[2024-05-27] MEDS: Folic Acid 1 MG Tablet PO (09:27)
[2024-05-27] MEDS: Sertraline 50 MG Tablet 150 MG PO (09:27)
[2024-05-27] MEDS: Thiamine Hydrochloride 100 MG Tablet PO (09:28)
[2024-05-27] MEDS: predniSONE 10 MG Tablet 30 MG PO (09:28)
[2024-05-27] MEDS: Lisinopril 10 MG Tablet 30 MG PO (09:28)
[2024-05-27] MEDS: Insulin Glargine-YFGN 100 UNIT/ML Pen 37 UNIT SC (09:30)
[2024-05-27 09:32] VITALS: BP 116/81; PULSE 73; RESP 18; TEMP 36.9; O2SAT 97
[2024-05-27 10:26] LABS: Bedside Glucose 203 mg/dL (74-106)
[2024-05-27] MEDS: Polyethylene Glycol 3350 17 GM PACKET PO (11:00)
[2024-05-27 11:48] LABS: Bedside Glucose 240 mg/dL (74-106)
[2024-05-27 17:00] VITALS: BP 115/80; PULSE 86; RESP 18; TEMP 36.2; O2SAT 98
[2024-05-27 17:08] LABS: Bedside Glucose 167 mg/dL (74-106)
[2024-05-27 21:10] VITALS: BP 134/78; PULSE 96; RESP 18; TEMP 36.9; O2SAT 100
[2024-05-27] MEDS: Insulin Glargine-YFGN 100 UNIT/ML Pen 16 UNIT SC (21:26)
[2024-05-27 22:03] LABS: Bedside Glucose 242 mg/dL (74-106)
[2024-05-28] VITALS: BP 123/89; PULSE 81; RESP 18; TEMP 36.7; O2SAT 100
[2024-05-28] MEDS: Phenobarbital 32.4 MG Tablet 64.8 MG PO ×3 (01:02→11:39)
[2024-05-28] MEDS: 0.9% Saline Lock 10 ML Syringe IV (01:03)
[2024-05-28 01:08] VITALS: BP 123/89; PULSE 81; RESP 18; TEMP 36.7; O2SAT 100
[2024-05-28 05:17] VITALS: BP 117/77; PULSE 78; RESP 16; TEMP 36.6; O2SAT 98
[2024-05-28] MEDS: chlordiazePOXIDE 25 MG Capsule PO ×2 (05:21→14:58)
[2024-05-28 06:56] LABS: Bedside Glucose 107 mg/dL (74-106)
[2024-05-28] MEDS: Sertraline 50 MG Tablet 150 MG PO (09:48)
[2024-05-28] MEDS: predniSONE 10 MG Tablet 30 MG PO (09:48)
[2024-05-28] MEDS: Lisinopril 10 MG Tablet 30 MG PO (09:49)
[2024-05-28] MEDS: Folic Acid 1 MG Tablet PO (09:49)
[2024-05-28] MEDS: Thiamine Hydrochloride 100 MG Tablet PO (09:49)
[2024-05-28] MEDS: Insulin Glargine-YFGN 100 UNIT/ML Pen 37 UNIT SC (09:50)
[2024-05-28 12:04] LABS: Bedside Glucose 338 mg/dL (74-106)
[2024-05-28 12:58] LABS: ALB/GLOB Ratio 0.9 RATIO (0.9-2.4); AST(SGOT) 17 U/L (15-37); Alanine Aminotransfer ALT/SGPT 28 U/L (16-61); Albumin, Serum 3.1 g/dL (3.2-5.0); Alkaline Phosphatase 85 U/L (45-117); Anion Gap 5 (5-15); BUN 17 mg/dL (7-18); Chloride 94 mmol/L (98-107); Creatinine, Serum 1.06 mg/dL (0.70-1.30); EST Glomerular Filtration Rate 83 mL/min (>60); Est Glom Filt Rate - Afr Amer 100 mL/min (>60); Estimated Creatinine Clearance 103.71 ml/min; Globulin 3.4 g/dL (2.2-4.2); Glucose 359 mg/dL (74-106); Potassium 4.4 mmol/L (3.5-5.1); Protein, Total 6.5 g/dL (6.4-8.2); Sodium Level 128 mmol/L (136-145)
[2024-05-28] MEDS: Insulin Lispro 100 UNIT/ML INSULN.PEN SC (13:19)
--- NOTE | 2024-05-28 13:23 | PCM.DC.SUM ---
Providers Date of Admission: 05/25/24 Date of Discharge: 05/28/24 Primary Care Physician: BOY Ortega Reason For Visit: ETOH DETOX Diagnosis Discharge Diagnosis (1) Alcohol dependence: Status: Acute Code(s): F10.20 - Alcohol dependence, uncomplicated Medications at Discharge Home Medications lancets (Accu-Chek Fastclix Lancet Drum) #200 ea 10/28/22 sertraline 100 mg tablet 150 mg PO DAILY DEPRESSION 10/14/23 blood sugar diagnostic (Contour Next Test Strips) #200 ea 03/29/24 pen needle, diabetic 32 gauge x 5/32 (BD Ultra-Fine Clarisa Pen Needle) #150 ea 03/29/24 prednisone 10 mg tablet 30 mg (3 x 10 mg) PO DAILY occular myasthenia gravis #21 tabs 04/12/24 blood-glucose sensor (FreeStyle Caroline 3 Sensor device) #2 ea 04/19/24 lisinopril 30 mg tablet 30 mg PO DAILY #90 tabs 04/19/24 insulin aspart U-100 100 unit/mL (3 mL) subcutaneous pen (Novolog FlexPen U-100 Insulin aspart) 15 unit (0.15 mL) subcut TID #54 mL 04/23/24 OneTouch Verio Flex meter (blood-glucose meter) #1 ea 05/10/24 OneTouch Verio test strips (blood sugar diagnostic) #150 ea 05/10/24 lancets 33 gauge (OneTouch Delica Plus Lancet) #150 ea 05/10/24 insulin glargine 100 unit/mL (3 mL) subcutaneous pen (Lantus Solostar U-100 Insulin) See Rx Instructions subcut BID 05/25/24 rosuvastatin 5 mg tablet 5 mg PO DAILY 05/25/24 Hospital Course Operations None Procedures None Summary of Care Provided Minutes Spent on Discharge: 55 Hospital Course: Patient is a 38-year-old male with past medical history as outlined was admitted through the ED for acute alcohol withdrawal. He was admitted in October 2023 and had to be intubated on account of seizures with alcohol withdrawal and had to be transferred to a hospital which had continuous EEG. He states his stay that was uneventful. He was sober for about 7 months but then started drinking again because he and his were going through a separation process. He had drank 2 large bottles of whiskey in the last 6 days prior to admission. On admission his CIWA score was 12 and blood alcohol level was 293. He was admitted and managed for acute alcohol withdrawal and started on alcohol drawl protocol phenobarbital. He was also placed on Librium. He had an uneventful stay and did well. He tolerated the 3-day detox process. At patient's request he was given a dose of Vivitrol on 05/28/2024 prior to admission. Serum liver enzymes were checked and were normal. He was counseled to follow-up with his primary care doctor and addiction medicine within 1 week for follow-up liver enzyme check to make sure his liver enzymes remain normal. He was discharged with a diet 60-83 before. He is follow-up with his primary care doctor within 1 to 2 weeks. Patient was seen and examined prior to discharge. He had an uneventful night and felt well. Review of systems otherwise negative. Labs and vitals reviewed. Home medication reviewed and reconciled. Physical Exam Const alert, oriented x3 and no apparent distress General Appearance: cooperative, comfortable and well kempt Orientation / Consciousness: awake Exam Limitations: no limitations HEENT normocephalic, head/scalp atraumatic, hearing grossly normal bilaterally, moist oral mucous membranes and oropharynx normal Mouth: oral and palatal mucosa normal Eyes PERRL and conjunctivae normal Neck no lymphadenopathy, supple and no JVD Resp normal respiratory effort, no retractions, no use of accessory muscles and clear to auscultation bilaterally Cardio regular rate, regular rhythm, S1 normal heart sound, S2 normal heart sound and no murmurs GI normal to inspection, nondistended, normoactive bowel sounds, soft to palpation, non-tender and non-distended Extremity normal to inspection, full ROM and no clubbing, cyanosis or edema Skin no rashes or lesions noted and no wounds Neuro oriented x3, CN's II-XII intact bilaterally, moves all extremities, no focal motor deficits and no sensory deficits noted Sensorium / Orientation: awake and alert Motor Exam: strength 5/5 throughout Psych affect normal Weight / BMI Weight Weight: 192 lb 7.417 oz Body Mass Index (BMI) 26.1 ABG / Lab / Microbiology Data 05/26/24 05:45 05/28/24 12:10 Laboratory: Laboratory Results - last 24 hr 05/27/24 16:07: POC Glucose 167 H 05/27/24 21:23: POC Glucose 242 H 05/28/24 06:38: POC Glucose 107 H 05/28/24 11:33: POC Glucose 338 H 05/28/24 12:10: Sodium 128 L, Potassium 4.4, Chloride 94 L, Carbon Dioxide 29.0, Anion Gap 5, BUN 17, Creatinine 1.06, Estim Creat Clear Calc 103.71, Est GFR (MDRD) Af Amer 100, Est GFR (MDRD) Non-Af 83, BUN/Creatinine Ratio 16.0, Glucose 359 H, Calcium 9.0, Total Bilirubin 0.60, AST 17, ALT 28, Alkaline Phosphatase 85, Total Protein 6.5, Albumin 3.1 L, Globulin 3.4, Albumin/Globulin Ratio 0.9 D/C Instructions Discharge Diet: Low fat / Low cholesterol Discharge Activity: Return to Normal Activity Weight Bearing Status: Weight bearing as tolerated Call your doctor if you observe: Fever of 101 or Higher, Shortness of breath, Dizziness and Chest pain Meaningful Use Info Meaningful Use Meaningful Use Diagnoses (Choose all that apply): None applicable Ischemic Stroke Statin Dosing Therapy Reference: STATIN DOSE THERAPY REFERENCE: * Patients > 75 years receive moderate or high dose statin therapy. * Patients 75 years or YOUNGER should receive HIGH intensity statin dose unless contraindicated. You will be required to document reason for non-treatment if statin daily dose does not meet guidelines. HIGH DOSE STATIN THERAPY DAILY Atorvastatin > than or = to 40 mg Rosuvastatin > than or = to 20 mg Amlodipine + Atorvastatin > than or = to 2.5/40 mg Ezetimibe + Simvastatin 10/80 mg Simvastatin 80mg Discharge Plan Admission Admit Date/Time: 05/25/24 19:43 Primary Reason for Your Visit: acute alcohol withdrawal Attending Provider: Erna Perdomo Primary Care Provider: Jaren Wood [facility] Consulting Providers: Lexa Fernandez Eric Instructions Patient Instructions: ED Withdrawal Alcohol Additional Instructions / Restrictions: needs to see his PCP or addiction medicine specialist within one week for repeat CMP to evaluate liver function as he received vivitrol prior to discharge. Discharge Orders/Prescriptions Prescriptions: Continued (DME) FreeStyle Caroline 3 Sensor Device See Rx Instructions .Route Qty: 2 6RF Rx Instructions: As directed lisinopril 30 mg tablet 30 mg PO DAILY Qty: 90 1RF sertraline 100 mg tablet 150 mg PO DAILY Patient Comments: takes 150 mg (1 and 1/2 tablet) rosuvastatin 5 mg tablet 5 mg PO DAILY insulin glargine [Lantus Solostar U-100 Insulin] 100 unit/mL (3 mL) insulin pen See Rx Instructions subcut BID Rx Instructions: 37 am and 16 pm subcutaneously twice a day (DME) lancets [Accu-Chek Fastclix Lancet Drum] Misc See Rx Instructions .Route Qty: 200 5RF Rx Instructions: 4x/day (DME) pen needle, diabetic [BD Ultra-Fine Clarisa Pen Needle] 32 gauge x 5/32 needle See Rx Instructions .ROUTE .MEDSUPPLY Qty: 150 4RF Rx Instructions: 4 times daily (DME) Contour Next Test Strips Strip See Rx Instructions .Route Qty: 200 11RF Rx Instructions: 6x/day prednisone 10 mg tablet 30 mg PO DAILY Qty: 21 0RF insulin aspart U-100 [Novolog FlexPen U-100 Insulin] 100 unit/mL (3 mL) insulin pen 15 unit subcut TID MDD 60 Qty: 54 1RF Rx Instructions: plus sliding scale (DME) blood-glucose meter [OneTouch Verio Flex meter] Misc See Rx Instructions .Route Qty: 1 0RF Rx Instructions: As directed (DME) OneTouch Verio test strips Strip See Rx Instructions .Route Qty: 150 11RF Rx Instructions: 5 times daily (DME) lancets [OneTouch Delica Plus Lancet] 33 gauge misc See Rx Instructions .Route Qty: 150 11RF Rx Instructions: 5 times daily Referrals / Follow Up: Jaren Wood Rosemarie, SIGN ERECTOR-C [Primary Care Provider] - Within 1 Week Disposition Disposition (needs filled in before D/C Order can be placed): Home, Self Care Charges/Coding Visit Charges Inpatient E&M: 28652 Disch Hosp >30min
[2024-05-28] MEDS: Naltrexone Microspheres 380 MG SYRINGE IM (14:48)
[2024-05-28] MEDS: Vivitrol Administration Needles 1 EACH MC (14:49)
[2024-05-28] MEDS: Vivitrol ID Card 1 EACH MC (14:49)
[2024-05-28 15:00] VITALS: BP 144/83; PULSE 118; RESP 16; TEMP 37.1; O2SAT 98
== END 2024-05-28 15:47 | disposition home or self-care (01) | DRG 897 ==
LOC: ED 18:38 → MS3 20:14
PROVIDERS: Admitting Provider Family Medicine; Emergency Provider Emergency Medicine; PCP Nurse Practitioner Family; Visit Provider Student in an Organized Health Care Education/Training Program
DX: F10.239 Alcohol dependence with withdrawal, unspecified (principal); R45.851 Suicidal ideations; G70.00 Myasthenia gravis without (acute) exacerbation; E10.9 Type 1 diabetes mellitus without complications; F32.A Depression, unspecified; I10 Essential (primary) hypertension; F41.9 Anxiety disorder, unspecified; E78.5 Hyperlipidemia, unspecified; L42 Pityriasis rosea; Z79.4 Long term (current) use of insulin; Y90.8 Blood alcohol level of 240 mg/100 ml or more; R33.9 Retention of urine, unspecified; Z79.52 Long term (current) use of systemic steroids; Z79.899 Other long term (current) drug therapy; Z96.41 Presence of insulin pump (external) (internal)
CPT/HCPCS: 36415; 51702; 80053; 80307; 81001; 82077; 82962; 85025; 99284; A4216

== ENCOUNTER → 2024-10-25 | Outpatient (CLI) | payer BC, SELFPAY ==
[2024-10-25 12:38] LABS: Vitamin D,25 Hydroxy 13.3 ng/mL
[2024-10-25 12:42] LABS: ALB/GLOB Ratio 1.1 RATIO (0.9-2.4); AST(SGOT) 18 U/L (15-37); Alanine Aminotransfer ALT/SGPT 22 U/L (16-61); Albumin, Serum 3.7 g/dL (3.2-5.0); Alkaline Phosphatase 76 U/L (45-117); Anion Gap 5 (5-15); BUN 14 mg/dL (7-18); BUN/Creat Ratio 13.9 RATIO (10-20); Calcium,Total 9.7 mg/dL (8.5-10.1); Chloride 102 mmol/L (98-107); Cholesterol 174 mg/dL (200); Creatinine, Serum 1.01 mg/dL (0.70-1.30); EST Glomerular Filtration Rate 87 mL/min (>60); Est Glom Filt Rate - Afr Amer 106 mL/min (>60); Globulin 3.4 g/dL (2.2-4.2); Glucose 218 mg/dL (74-106); High Density Lipoprotein 86 mg/dL; Potassium 4.4 mmol/L (3.5-5.1); Protein, Total 7.1 g/dL (6.4-8.2); Sodium Level 136 mmol/L (136-145); Triglycerides 32 mg/dL; Very Low Density Lipoprotein 6 mg/dL (5-40)
[2024-10-25 12:48] LABS: Microalbumin,Random Urine < 5.0 mg/L (NO RANGE EST.)
[2024-10-26 04:07] LABS: Thyroid Peroxidase AB 29 IU/mL (0-34)
[2024-10-30 15:08] LABS: ACHR Recep AB, Blocking 21 % (0-25); Acetylcholine Receptor Binding < 0.03 nmol/L (0.00-0.24)
[2024-11-05 12:08] LABS: ACHR AB Modulating 0 % (0-45)
== END | disposition home or self-care (01) ==
PROVIDERS: Psychiatry & Neurology Neurology; PCP Nurse Practitioner Family; Referring Provider Internal Medicine Endocrinology, Diabetes & Metabolism; Visit Provider Internal Medicine Endocrinology, Diabetes & Metabolism
DX: G70.00 Myasthenia gravis without (acute) exacerbation (principal); E10.65 Type 1 diabetes mellitus with hyperglycemia; I10 Essential (primary) hypertension; Z96.41 Presence of insulin pump (external) (internal); E55.9 Vitamin D deficiency, unspecified
CPT/HCPCS: 36415; 80053; 80061; 82043; 82306; 82570; 83519; 84238; 84443; 86376